=== PATIENT | male | born 1975 | race Caucasian/White ===

== ENCOUNTER 2016-07-01 14:39 | Inpatient (IN) | payer MEDICARE, MEDICAID ==
--- NOTE | 2016-07-01 15:09 | ER Document Report ---
ED Medical Screen (RME) - General Chief Complaint: Numbness Stated Complaint: LEFT SIDE BODY NUMBNESS Notes: Patient presents with complaints of left upper and lower extremity numbness for the past 4 days after having an episode of hypoglycemia. No history of similar symptoms in the past. He denies objective weakness. No dysphagia, aphasia, or visual deficits. He has not seen his primary doctor regarding today's symptoms but was referred to the emergency department when he explained his symptoms over the phone. Nothing seems to improve or worsen his symptoms. I have greeted and performed a rapid initial assessment of this patient. A comprehensive ED assessment and evaluation of the patient, analysis of test results and completion of medical decision making process will be conducted by an additional ED providers. TRAVEL OUTSIDE OF THE [place] IN LAST 30 DAYS: No - Related Data Allergies/Adverse Reactions: Influenza A (H1N1)Vaccine 2008 * [Influenza A (H1N1)Vaccine 2008] Allergy ( Verified 07/25/14 12:39) Past Medical History - Past Medical History Cardiac Medical History: Reports: Hx Hypercholesterolemia, Hx Hypertension Endocrine Medical History: Reports: Hx Diabetes Mellitus Type 1, Hx Diabetes Mellitus Type 2 Renal/ Medical History: Denies: Hx Peritoneal Dialysis Psychiatric Medical History: Reports: Hx Depression Past Surgical History: Reports: Hx Appendectomy, Hx Orthopedic Surgery - left arm, Hx Tonsillectomy Physical Exam - Vital signs Vitals: Pulse BP Pulse Ox 66 137/51 H 98 07/01/16 14:45 07/01/16 14:45 07/01/16 14:45 Course - Re-evaluation Re-evalutation: 07/01/16 15:08 Patient's symptoms appear most consistent with a left-sided MCA distribution stroke. He does have objective weakness on exam with 4 out of 5 strength in the biceps and triceps of the left approximately 4 versus 45 out of 5 strength on the right. Likewise his distal and proximal strength on the left lower extremity is 4 out of 5 versus 5 out of 5 on the right. Have ordered an MRI of the head, carotid Dopplers, and laboratories and will send back to the main emergency department as I believe he has likely had a stroke and will require further evaluation. His symptoms did start 4 days ago and he is not a TPA candidate. - Vital Signs Vital signs: Temp Pulse Resp BP Pulse Ox 97.5 F 103 H 16 122/79 99 07/01/16 14:48 07/01/16 14:48 07/01/16 14:48 07/01/16 14:48 07/01/16 14:48
[2016-07-01] MEDS ORDERED: DEXTROSE 50%-WATER 25 GM/50 ML DISP.SYRIN IV ONE ×3 (15:23→19:20)
[2016-07-01 15:58] LABS: ABSOLUTE BASOPHILS # (AUTO) 0.1 10^3/uL (0.0-0.2); ABSOLUTE EOSINOPHILS # (AUTO) 0.1 10^3/uL (0.0-0.6); ABSOLUTE LYMPHOCYTES (AUTO) 3.4 10^3/uL (0.5-4.7); ABSOLUTE MONOCYTES (AUTO) 0.8 10^3/uL (0.1-1.4); ABSOLUTE NEUT (AUTO) 5.7 10^3/uL (1.7-8.2); EOSINOPHILS % (AUTO) 1.2 % (0-6); HEMATOCRIT 43.7 % (37.9-51.0); HEMOGLOBIN 14.4 g/dL (13.5-17.0); HGB HCT DIFFERENCE -0.5; LYMPHOCYTES % (AUTO) 33.5 % (13-45); MEAN CORPUSCULAR HEMOGLOBIN 30.7 pg (27.0-33.4); MEAN CORPUSCULAR HGB CONC 32.9 g/dL (32.0-36.0); MEAN CORPUSCULAR VOLUME 93 fl (80-97); MONOCYTES % (AUTO) 7.8 % (3-13); RED BLOOD COUNT 4.68 10^6/uL (4.35-5.55); RED CELL DISTRIBUTION WIDTH 14.3 % (11.5-14.0); SEGMENTED NEUTROPHILS % (AUTO) 56.5 % (42-78); WHITE BLOOD COUNT 10.1 10^3/uL (4.0-10.5)
[2016-07-01 16:23] LABS: ANION GAP 12 (5-19); BLOOD UREA NITROGEN 16 mg/dL (7-20); CALCIUM 9.7 mg/dL (8.4-10.2); CARBON DIOXIDE 28 mmol/L (22-30); CHLORIDE 101 mmol/L (98-107); CHOLESTEROL 248.47 mg/dL (0-200); CREATININE RESULT 0.75 mg/dL (0.52-1.25); Direct HDL 53 mg/dL (>40); GLUCOSE 179 mg/dL (75-110); SODIUM 140.8 mmol/L (137-145); TRIGLYCERIDES 57 mg/dL (<150)
[2016-07-01 16:33] LABS: DIRECT LDL 149 mg/dL (<100)
--- NOTE | 2016-07-01 18:54 | EKG REPORT ---
SEVERITY:- NORMAL ECG - SINUS RHYTHM : Confirmed by: Lance Alvarez MD 01-Jul-2016 18:53:40
--- NOTE | 2016-07-01 22:43 | ER Document Report ---
ED Neuro Symptoms/Deficit - General Chief Complaint: Numbness Stated Complaint: LEFT SIDE BODY NUMBNESS Mode of Arrival: Ambulatory Information source: Patient TRAVEL OUTSIDE OF THE [place] IN LAST 30 DAYS: No - HPI Patient complains to provider of: Paresthesia - LEFT UPPER & LOWER EXTREMITIES Onset: Other - 4 DAYS AGO Awoke with symptoms: No Symptoms are: Constant Duration: Continues in ED Quality of pain: No pain Context: denies: Insect bite, Tick bite, Falling, Head injury Loss of consciousness: No loss of consciousness Was STROKE ALERT Called: No Baseline Cognitive: Alert, oriented X 3 Baseline Gait: Walks w/o assistance Pre-existing weakness: No: Lower extremity, Upper extremity Alert To: Name/Voice Patient Orientation: Person, Place, Time Character of altered mental status: Unchanged from baseline New weakness: LUE, LLE Altered sensation: LUE, LLE Decreased ability to stand/walk: Weak - MINIMAL Vision problem/glaucoma: No Associated symptoms: None Similar symptoms previously: No Recently seen / treated by doctor: No - Related Data Allergies/Adverse Reactions: Influenza A (H1N1)Vaccine 2008 * [Influenza A (H1N1)Vaccine 2008] Allergy ( Verified 07/01/16 15:10) Past Medical History - General Information source: Patient - Social History Smoking Status: Never Smoker Frequency of alcohol use: None Drug Abuse: None Lives with: Spouse/Significant other Family History: Reviewed & Not Pertinent Patient has suicidal ideation: No Patient has homicidal ideation: No - Past Medical History Cardiac Medical History: Reports: Hx Hypercholesterolemia, Hx Hypertension Neurological Medical History: Denies: Hx Cerebrovascular Accident Endocrine Medical History: Reports: Hx Diabetes Mellitus Type 1, Hx Diabetes Mellitus Type 2 Renal/ Medical History: Denies: Hx Peritoneal Dialysis Psychiatric Medical History: Reports: Hx Depression Past Surgical History: Reports: Hx Appendectomy, Hx Orthopedic Surgery - left arm, Hx Tonsillectomy - Immunizations Hx Diphtheria, Pertussis, Tetanus Vaccination: Yes Review of Systems - Review of Systems Constitutional: No symptoms reported EENT: No symptoms reported Cardiovascular: No symptoms reported Respiratory: No symptoms reported Gastrointestinal: No symptoms reported Genitourinary: No symptoms reported Musculoskeletal: No symptoms reported Skin: No symptoms reported Neurological/Psychological: See HPI Physical Exam - Vital signs Vitals: Pulse BP Pulse Ox 66 137/51 H 98 07/01/16 14:45 07/01/16 14:45 07/01/16 14:45 Interpretation: Normal - General General appearance: Appears well, Alert In distress: None - HEENT Head: Normocephalic Eyes: Normal Conjunctiva: Normal Ears: Normal Nasal: Normal Mouth/Lips: Normal Mucous membranes: Normal - Respiratory Respiratory status: No respiratory distress Breath sounds: Normal - Cardiovascular Rhythm: Regular Heart sounds: Normal auscultation Murmur: No - Abdominal Inspection: Normal Distension: No distension Bowel sounds: Normal - Back Back: Normal - Extremities General upper extremity: Normal inspection General lower extremity: Normal inspection - Neurological Neuro grossly intact: No - VERY SLIGHT MOTOR WEAKNESS LUE,LLE. Cognition: Normal Orientation: AAOx4 Hagan Coma Scale Eye Opening: Spontaneous Vandana Coma Scale Verbal: Oriented Vandana Coma Scale Motor: Obeys Commands Hagan Coma Scale Total: 15 Speech: Normal Cranial nerves: Normal Cerebellar coordination: Normal Motor strength normal: No: LUE, LLE Additional motor exam normals: Equal translational specialist - R. HAND DOMINANT Sensory: Altered light touch - LUE, LLE - Psychological Associated symptoms: Normal affect, Normal mood - Skin Skin Temperature: Warm Skin Moisture: Dry Skin Color: Normal Skin Turgor: Elastic Course - Vital Signs Vital signs: Temp Pulse Resp BP Pulse Ox 97.5 F 104 H 24 H 135/77 H 97 07/01/16 14:48 07/01/16 18:00 07/01/16 21:01 07/01/16 21:01 07/01/16 21:01 - Laboratory Result Diagrams: 07/01/16 15:40 07/01/16 15:40 Laboratory results interpreted by me: 07/01/16 07/01/16 07/01/16 15:40 15:40 15:40 RDW 14.3 H Glucose 179 H POC Glucose Hemoglobin A1c % 8.7 H Cholesterol 248.47 H LDL Cholesterol Direct 149 H 07/01/16 15:50 RDW Glucose POC Glucose 166 H Hemoglobin A1c % Cholesterol LDL Cholesterol Direct - EKG Interpretation by Sd EKG shows normal: Sinus rhythm, Webster, Intervals, QRS Complexes, ST-T Waves Rate: Normal Rhythm: NSR - Consults DR. SANCHEZ Time consulted: 22:38 Consulted provider: will see as inpatient Discharge - Discharge Clinical Impression: Hypercholesterolemia CVA (cerebral vascular accident) Qualifiers: CVA mechanism: unspecified Qualified Code(s): I63.9 - Cerebral infarction, unspecified Hypertension Qualifiers: Hypertension type: essential hypertension Qualified Code(s): I10 - Essential ( primary) hypertension Condition: Good Disposition: ADMITTED INPATIENT Admitting Provider: [facility] Admitted: [facility] Referrals: BRYSON SANCHEZ MD [Primary Care Provider] - Follow up as needed
[2016-07-02] MEDS ORDERED: DEXTROSE 40% GEL 15 GM TUBE X 2 PO PRN (02:03)
[2016-07-02] MEDS ORDERED: DEXTROSE 40% GEL 15 GM TUBE PO PRN (02:03)
[2016-07-02] MEDS ORDERED: DEXTROSE 50%-WATER SYRINGE 25 GM/50 ML DOSE IV PRN (02:03)
[2016-07-02] MEDS ORDERED: GLUCAGON,HUMAN RECOMB 1 MG INJ IM PRN (02:03)
[2016-07-02] MEDS ORDERED: DEXTROSE 50%-WATER SYRINGE 12.5 GM/25 ML DOSE IV PRN (02:03)
[2016-07-02] MEDS: LANSOPRAZOLE 30 MG TAB.RAP.DR PO SCH (05:29)
[2016-07-02] MEDS: INSULIN LISPRO 100 UNIT/ML 3 ML VIAL SUBCUT PRN ×2 (08:24→12:38)
[2016-07-02] MEDS: ASPIRIN 81 MG TABLET, ENT COATED PO SCH (09:25)
[2016-07-02] MEDS: INSULIN GLARGINE,HUM.REC.ANLOG 300 UNIT/3 ML INSULN.PEN SUBCUT SCH (09:26)
[2016-07-02] MEDS ORDERED: LISINOPRIL 10 MG TABLET PO SCH (10:00)
--- NOTE | 2016-07-02 11:18 | PDOC H&P ---
History of Present Illness Admission Date/PCP: 07/02/16 01:09 BRYSON SANCHEZ Patient complains of: Left sided numbness History of Present Illness: WOODY TORRES JR is a 40 year old male known to my practice who was referred to the ED after calling office with compliant of left sided body numbness and episodes of hypoglycemia about 4 days prior to his calling the office. Patient reported that he had significant hypoglycemia and his family had to [facility] for assistance. He was evaluated on site and advised transfer to hospital but patient declined after his resuscitative treatment. He reported development of numbness thereafter. he denied any associated definite weakness or decline in his functional capacity thereafter. He denied any associated disorientation, headache, dizziness, nausea, or vomiting. Patient reported associated loss of consciousness and severe diaphoresis with his hypoglycemia episode preceding onset of his presenting symptoms. His predisposing co-morbidities do include type 1 diabetes mellitus, HTN and HLD. Past Medical History Cardiac Medical History: Reports: Hyperlipidema, Hypertension Endocrine Medical History: Reports: Diabetes Mellitus Type 1, Diabetes Mellitus Type 2 Psychiatric Medical History: Reports: Depression Past Surgical History Past Surgical History: Reports: Appendectomy, Orthopedic Surgery - left arm, Tonsillectomy Social History Lives with: Spouse/Significant other Smoking Status: Never Smoker Frequency of Alcohol Use: None Hx Recreational Drug Use: No Hx Prescription Drug Abuse: No Family History Family History: Reviewed & Not Pertinent Parental Family History Reviewed: Yes Children Family History Reviewed: Yes Sibling(s) Family History Reviewed.: Yes Medication/Allergy Home Medications: Atorvastatin Calcium [Lipitor 80 mg Tablet] 80 mg PO DAILY 07/02/16 Gabapentin [Neurontin 300 mg Capsule] 300 mg PO DAILY 07/02/16 Insulin Aspart [Novolog Insulin 100 Unit/1 ml 10 ml] 0 unit SUBCUT .SLD SCALE Insulin Glargine,Hum.rec.anlog [Lantus] 50 unit SQ QAM 07/02/16 Lisinopril [Prinivil 10 mg Tablet] 10 mg PO DAILY 07/02/16 Venlafaxine HCl [Effexor] 50 mg PO QHS 07/02/16 Allergies/Adverse Reactions: Influenza A (H1N1)Vaccine 2008 * [Influenza A (H1N1)Vaccine 2008] Allergy ( Verified 07/01/16 15:10) Review of Systems Constitutional: ABSENT: chills, fever(s), headache(s), weight gain, weight loss Eyes: ABSENT: visual disturbances Ears: ABSENT: hearing changes Nose, Mouth, and Throat: ABSENT: as per HPI, headache(s), mouth pain, sore throat, vertigo, other Cardiovascular: ABSENT: chest pain, dyspnea on exertion, edema, orthropnea, palpitations Respiratory: ABSENT: cough, hemoptysis Gastrointestinal: ABSENT: abdominal pain, constipation, diarrhea, hematemesis, hematochezia, nausea, vomiting Genitourinary: ABSENT: dysuria, hematuria Musculoskeletal: ABSENT: joint swelling Integumentary: PRESENT: diaphoresis, other - healing vascular ulcers on right foof and lower aspect of his right leg. ABSENT: as per HPI, erythema, lesions, pruritus, rash, wounds Neurological: PRESENT: numbness, paresthesias. ABSENT: as per HPI, abnormal gait, abnormal movements, abnormal speech, confusion, convulsions, dizziness, focal weakness, frequent falls, lack of coordination, memory loss, restless legs , syncope, tingling, tremor(s), vertigo, weakness, other Psychiatric: ABSENT: anxiety, depression, homidical ideation, suicidal ideation Endocrine: ABSENT: cold intolerance, heat intolerance, polydipsia, polyuria Hematologic/Lymphatic: ABSENT: easy bleeding, easy bruising, lymphadenopathy Physical Exam Vital Signs: Temp Pulse Resp BP Pulse Ox 97.9 F 119 H 18 113/68 100 07/02/16 08:38 07/02/16 08:38 07/02/16 08:38 07/02/16 08:38 07/02/16 08:38 Intake & Output 07/01/16 07/02/16 07/03/16 06:59 06:59 06:59 Intake Total 205 Output Total 925 Balance -720 Weight 68.7 kg General appearance: PRESENT: no acute distress, cooperative, well-developed, well-nourished Head exam: PRESENT: atraumatic, normocephalic Eye exam: PRESENT: conjunctiva pink, EOMI, PERRLA. ABSENT: scleral icterus Ear exam: PRESENT: normal external ear exam Mouth exam: PRESENT: moist, tongue midline Teeth exam: ABSENT: dental caries, dental tenderness, edentulous, poor dentation , other Throat exam: ABSENT: post pharyngeal erythema, tonsillar erythema, tonsillar exudate, tonsillogmegaly, other Neck exam: PRESENT: full ROM. ABSENT: carotid bruit, JVD, lymphadenopathy, thyromegaly Respiratory exam: PRESENT: clear to auscultation dianne Cardiovascular exam: PRESENT: RRR. ABSENT: diastolic murmur, rubs, systolic murmur Pulses: PRESENT: normal dorsalis pedis pul, +2 pedal pulses bilateral Vascular exam: PRESENT: normal capillary refill GI/Abdominal exam: PRESENT: normal bowel sounds, soft. ABSENT: distended, guarding, mass, organolmegaly, rebound, tenderness Rectal exam: PRESENT: deferred Extremities exam: PRESENT: full ROM Musculoskeletal exam: PRESENT: ambulatory, full ROM Neurological exam: PRESENT: alert, awake, oriented to person, oriented to place , oriented to time, oriented to situation, CN II-XII grossly intact. ABSENT: motor sensory deficit Psychiatric exam: PRESENT: appropriate affect, normal mood. ABSENT: homicidal ideation, suicidal ideation Skin exam: PRESENT: dry, intact, warm, other - healing vascuar ulcers on right foot and lower region of right leg. ABSENT: cyanosis, rash Results Laboratory Results: Reviewed om [facility] and form significant part of my decision making on this case. Impressions: Head MRI 07/01/16 15:05 IMPRESSION: Positive for acute or sub-acute 6 mm lacunar infarction in the right lateral thalamus. Carotid Doppler Study 07/01/16 15:06 IMPRESSION: NO HEMODYNAMICALLY SIGNIFICANT STENOSIS. Assessment & Plan - Diagnosis (1) Diabetes mellitus type 1 with complications Is this a current diagnosis for this admission?: YesPlan: See admitting physician orders. (2) Hypercholesterolemia Is this a current diagnosis for this admission?: YesPlan: See admitting physician orders. (3) Hypertension Qualifiers: Hypertension type: essential hypertension Qualified Code(s): I10 - Essential (primary) hypertension Is this a current diagnosis for this admission?: YesPlan: See admitting physician orders. (4) Lacunar stroke of right subthalamic region Is this a current diagnosis for this admission?: YesPlan: See admitting physician orders. - Time Time Spent: 50 to 70 Minutes Medications reviewed and adjusted accordingly: Yes Anticipated discharge: Home with Homehealth Within: Other - Inpatient Certification Based on my medical assessment, after consideration of the patient's comorbidities, presenting symptoms, or acuity I expect that the services needed warrant INPATIENT care.: Yes I certify that my determination is in accordance with my understanding of Medicare's requirements for reasonable and necessary INPATIENT services [42 CFR 412.3e].: Yes Medical Necessity: Need Close Monitoring Due to Risk of Patient Decompensation, Need For IV Fluids, Need For Continuous Telemetry Monitoring, Risk of Complication if Not Cared For in Hospital Post Hospital Care: D/C Special Police Officer Documentation - Plan Summary Plan Summary: See admitting physician orders.
[2016-07-02] MEDS ORDERED: LISINOPRIL 10 MG TABLET PO ONE ×2 (12:00)
[2016-07-02] MEDS ORDERED: ACETAMINOPHEN 325 MG TABLET PO PRN (15:34)
[2016-07-02] MEDS ORDERED: VENLAFAXINE HCL 50 MG PO SCH (22:00)
[2016-07-02] MEDS ORDERED: AMITRIPTYLINE HCL 50 MG TABLET PO SCH (22:00)
[2016-07-02] MEDS: ATORVASTATIN CALCIUM 80 MG TABLET PO SCH (22:44)
[2016-07-02] MEDS: VENLAFAXINE HCL 25 MG TABLET PO SCH (22:45)
[2016-07-03 05:03] LABS: ABSOLUTE BASOPHILS # (AUTO) 0.1 10^3/uL (0.0-0.2); ABSOLUTE EOSINOPHILS # (AUTO) 0.2 10^3/uL (0.0-0.6); ABSOLUTE LYMPHOCYTES (AUTO) 3.7 10^3/uL (0.5-4.7); ABSOLUTE MONOCYTES (AUTO) 0.8 10^3/uL (0.1-1.4); ABSOLUTE NEUT (AUTO) 3.5 10^3/uL (1.7-8.2); BASOPHILS % (AUTO) 1.3 % (0-2); EOSINOPHILS % (AUTO) 1.9 % (0-6); HEMATOCRIT 39.9 % (37.9-51.0); HEMOGLOBIN 13.4 g/dL (13.5-17.0); HGB HCT DIFFERENCE 0.3; LYMPHOCYTES % (AUTO) 44.8 % (13-45); MEAN CORPUSCULAR HEMOGLOBIN 31.4 pg (27.0-33.4); MEAN CORPUSCULAR HGB CONC 33.7 g/dL (32.0-36.0); MEAN CORPUSCULAR VOLUME 93 fl (80-97); MONOCYTES % (AUTO) 10.1 % (3-13); RED BLOOD COUNT 4.28 10^6/uL (4.35-5.55); RED CELL DISTRIBUTION WIDTH 14.6 % (11.5-14.0); SEGMENTED NEUTROPHILS % (AUTO) 41.9 % (42-78); WHITE BLOOD COUNT 8.4 10^3/uL (4.0-10.5)
[2016-07-03 05:18] LABS: ALANINE AMINOTRANSFERASE 37 U/L (21-72); ALBUMIN 3.5 g/dL (3.5-5.0); ALKALINE PHOSPHATASE 82 U/L (38-126); ANION GAP 12 (5-19); ASPARTATE AMINO TRANSFERASE 22 U/L (17-59); BILIRUBIN,DIRECT 0.4 mg/dL (0.0-0.4); BILIRUBIN,TOTAL 0.7 mg/dL (0.2-1.3); BLOOD UREA NITROGEN 26 mg/dL (7-20); CALCIUM 9.9 mg/dL (8.4-10.2); CARBON DIOXIDE 25 mmol/L (22-30); CHLORIDE 103 mmol/L (98-107); CHOLESTEROL 238.83 mg/dL (0-200); CREATININE RESULT 1.12 mg/dL (0.52-1.25); Direct HDL 46 mg/dL (>40); GLUCOSE 74 mg/dL (75-110); POTASSIUM 4.5 mmol/L (3.6-5.0); SODIUM 139.7 mmol/L (137-145); TOTAL PROTEIN 6.4 g/dL (6.3-8.2); TRIGLYCERIDES 79 mg/dL (<150)
[2016-07-03] MEDS: LANSOPRAZOLE 30 MG TAB.RAP.DR PO SCH (05:23)
[2016-07-03] MEDS: NORMAL SALINE 1000 ML 1,000 ML IV PRN (05:25)
[2016-07-03 05:29] LABS: DIRECT LDL 161 mg/dL (<100)
--- NOTE | 2016-07-03 08:58 | EKG REPORT ---
SEVERITY:- BORDERLINE ECG - SINUS RHYTHM LATE PRECORDIAL MEDICAL OFFICE REP PLACEMENT. : Confirmed by: Lance Alvarez MD 03-Jul-2016 08:57:39
[2016-07-03] MEDS ORDERED: GABAPENTIN 300 MG CAPSULE PO SCH (10:00)
[2016-07-03] MEDS: ASPIRIN 81 MG TABLET, ENT COATED PO SCH (10:56)
[2016-07-03] MEDS: INSULIN GLARGINE,HUM.REC.ANLOG 300 UNIT/3 ML INSULN.PEN SUBCUT SCH (10:57)
[2016-07-03] MEDS: LISINOPRIL 10 MG TABLET PO SCH (11:01)
[2016-07-03] MEDS: INSULIN LISPRO 100 UNIT/ML 3 ML VIAL SUBCUT PRN (13:15)
--- NOTE | 2016-07-03 13:20 | PDOC PROGRESS REPORT ---
Subjective Progress Note for:: 07/03/16 Subjective:: Patient reported persistence of left sided extremities numbness feeling. He did reviewed video recorded video instructions on stroke. He denied any chest pain, SOB, palpitation, nausea or vomiting. Tolerating oral feeding without any difficulty with swallowing. Physical Exam Vital Signs: Temp Pulse Resp BP Pulse Ox 98.5 F 83 18 111/68 97 07/03/16 11:25 07/03/16 11:25 07/03/16 11:25 07/03/16 11:25 07/03/16 11:25 Intake & Output 07/02/16 07/03/16 07/04/16 06:59 06:59 06:59 Intake Total 205 903 695 Output Total 925 600 0 Balance -720 303 695 Weight 68.7 kg 68.8 kg Physical Exam: General appearance: PRESENT: no acute distress, cooperative, well-developed, well-nourished Head exam: PRESENT: atraumatic, normocephalic Eye exam: PRESENT: conjunctiva pink, EOMI, PERRLA. ABSENT: scleral icterus Mouth exam: PRESENT: moist, tongue midline Neck exam: PRESENT: full ROM. ABSENT: carotid bruit, JVD, lymphadenopathy, thyromegaly Respiratory exam: PRESENT: clear to auscultation dianne Cardiovascular exam: PRESENT: RRR. ABSENT: diastolic murmur, rubs, systolic murmur GI/Abdominal exam: PRESENT: normal bowel sounds, soft. ABSENT: distended, guarding, mass, organolmegaly, rebound, tenderness Extremities exam: PRESENT: full ROM Musculoskeletal exam: PRESENT: ambulatory, full ROM Neurological exam: PRESENT: alert, awake, oriented to person, oriented to place , oriented to time, oriented to situation, CN II-XII grossly intact. ABSENT: motor sensory deficit Psychiatric exam: PRESENT: appropriate affect, normal mood. ABSENT: homicidal ideation, suicidal ideation Skin exam: PRESENT: dry, intact, warm, other - healing vascuar ulcers on right foot and lower region of right leg. ABSENT: cyanosis, rash Results Laboratory Results: 07/03/16 03:54 07/03/16 03:54 07/03/16 07/03/16 03:54 03:54 WBC 8.4 RBC 4.28 L Hgb 13.4 L Hct 39.9 MCV 93 MCH 31.4 MCHC 33.7 RDW 14.6 H Plt Count 301 Seg Neutrophils % 41.9 L Lymphocytes % 44.8 Monocytes % 10.1 Eosinophils % 1.9 Basophils % 1.3 Absolute Neutrophils 3.5 Absolute Lymphocytes 3.7 Absolute Monocytes 0.8 Absolute Eosinophils 0.2 Absolute Basophils 0.1 Sodium 139.7 Potassium 4.5 Chloride 103 Carbon Dioxide 25 Anion Gap 12 BUN 26 H Creatinine 1.12 Est GFR ( Amer) > 60 Est GFR (Non-Af Amer) > 60 Glucose 74 L Calcium 9.9 Total Bilirubin 0.7 AST 22 ALT 37 Alkaline Phosphatase 82 Total Protein 6.4 Albumin 3.5 Triglycerides 79 Cholesterol 238.83 H LDL Cholesterol Direct 161 H VLDL Cholesterol 16.0 HDL Cholesterol 46 Impressions: Head MRI 07/01/16 15:05 IMPRESSION: Positive for acute or sub-acute 6 mm lacunar infarction in the right lateral thalamus. Carotid Doppler Study 07/01/16 15:06 IMPRESSION: NO HEMODYNAMICALLY SIGNIFICANT STENOSIS. Assessment & Plan - Diagnosis (1) Diabetes mellitus type 1 with complications Is this a current diagnosis for this admission?: YesPlan: See attending physician orders. Maintain on current medication management. (2) Hypercholesterolemia Is this a current diagnosis for this admission?: YesPlan: See attending physician orders. Maintain on current medication management. (3) Hypertension Qualifiers: Hypertension type: essential hypertension Qualified Code(s): I10 - Essential (primary) hypertension Is this a current diagnosis for this admission?: YesPlan: See attending physician orders. Maintain on current medication management. (4) Lacunar stroke of right subthalamic region Is this a current diagnosis for this admission?: YesPlan: See attending physician orders. Maintain on current medication management. Increase Gabapentin to 300 mg p.o bid - Time Time Spent with patient: 25-34 minutes Medications reviewed and adjusted accordingly: Yes Within: Other - Inpatient Certification Based on my medical assessment, after consideration of the patient's comorbidities, presenting symptoms, or acuity I expect that the services needed warrant INPATIENT care.: Yes I certify that my determination is in accordance with my understanding of Medicare's requirements for reasonable and necessary INPATIENT services [42 CFR 412.3e].: Yes Medical Necessity: Need Close Monitoring Due to Risk of Patient Decompensation, Need For IV Fluids, Need For Continuous Telemetry Monitoring, Risk of Complication if Not Cared For in Hospital Post Hospital Care: D/C Speech Language Therapist Documentation - Plan Summary Plan Summary: See attending physician orders.
[2016-07-03] MEDS: GABAPENTIN 300 MG CAPSULE PO SCH (17:41)
[2016-07-03] MEDS: VENLAFAXINE HCL 25 MG TABLET PO SCH (21:47)
[2016-07-03] MEDS: ATORVASTATIN CALCIUM 80 MG TABLET PO SCH (21:49)
[2016-07-03] MEDS ORDERED: AMITRIPTYLINE HCL 25 MG TABLET PO SCH (22:00)
[2016-07-04] MEDS: LANSOPRAZOLE 30 MG TAB.RAP.DR PO SCH (05:44)
[2016-07-04] MEDS: INSULIN GLARGINE,HUM.REC.ANLOG 300 UNIT/3 ML INSULN.PEN SUBCUT SCH (10:00)
[2016-07-04] MEDS: GABAPENTIN 300 MG CAPSULE PO SCH ×3 (10:00→17:01)
--- NOTE | 2016-07-04 12:42 | PDOC PROGRESS REPORT ---
Subjective Progress Note for:: 07/04/16 Subjective:: Patient reported some improvement in feeling in his left extremities. There is reported of persistent hypoglycemia overnight. He admitted to eating his diabetic snack at bedtime. No nausea or vomiting. Tolerating oral feeding without any difficulty with swallowing. He denied any chest pain, SOB, or palpitation. Physical Exam Vital Signs: Temp Pulse Resp BP Pulse Ox 98.0 F 85 19 123/66 98 07/04/16 11:34 07/04/16 11:34 07/04/16 11:34 07/04/16 11:34 07/04/16 11:34 Intake & Output 07/03/16 07/04/16 07/05/16 06:59 06:59 06:59 Intake Total 903 3605 354 Output Total 600 3075 420 Balance 303 530 -66 Weight 68.8 kg 71.6 kg Physical Exam: General appearance: PRESENT: no acute distress, cooperative, well-developed, well-nourished Head exam: PRESENT: atraumatic, normocephalic Eye exam: PRESENT: conjunctiva pink, EOMI, PERRLA. ABSENT: scleral icterus Mouth exam: PRESENT: moist, tongue midline Neck exam: PRESENT: full ROM. ABSENT: carotid bruit, JVD, lymphadenopathy, thyromegaly Respiratory exam: PRESENT: clear to auscultation dianne Cardiovascular exam: PRESENT: RRR. ABSENT: diastolic murmur, rubs, systolic murmur GI/Abdominal exam: PRESENT: normal bowel sounds, soft. ABSENT: distended, guarding, mass, organomegaly, rebound, tenderness Extremities exam: PRESENT: full ROM Musculoskeletal exam: PRESENT: ambulatory, full ROM Neurological exam: PRESENT: alert, awake, oriented to person, oriented to place , oriented to time, oriented to situation, CN II-XII grossly intact. ABSENT: motor sensory deficit Psychiatric exam: PRESENT: appropriate affect, normal mood. ABSENT: homicidal ideation, suicidal ideation Skin exam: PRESENT: dry, intact, warm, other - healing vascular ulcers on right foot and lower region of right leg. ABSENT: cyanosis, rash Results Laboratory Results: 07/03/16 03:54 07/03/16 03:54 Impressions: Head MRI 07/01/16 15:05 IMPRESSION: Positive for acute or sub-acute 6 mm lacunar infarction in the right lateral thalamus. Carotid Doppler Study 07/01/16 15:06 IMPRESSION: NO HEMODYNAMICALLY SIGNIFICANT STENOSIS. Assessment & Plan - Diagnosis (1) Diabetes mellitus type 1 with complications Is this a current diagnosis for this admission?: YesPlan: See attending physician orders. I will decrease Lantus insulin to 40 units SC daily. Maintain on all other current medication management. (2) Hypercholesterolemia Is this a current diagnosis for this admission?: YesPlan: See attending physician orders. Maintain on current medication management. (3) Hypertension Qualifiers: Hypertension type: essential hypertension Qualified Code(s): I10 - Essential (primary) hypertension Is this a current diagnosis for this admission?: YesPlan: See attending physician orders. Maintain on current medication management. (4) Lacunar stroke of right subthalamic region Is this a current diagnosis for this admission?: YesPlan: See attending physician orders. Increase Gabapentin to 300 mg p.o tid. Maintain on current medication management. - Time Time Spent with patient: 25-34 minutes Medications reviewed and adjusted accordingly: Yes Anticipated discharge: Home with Homehealth Within: Other - Inpatient Certification Medical Necessity: Need Close Monitoring Due to Risk of Patient Decompensation, Need For Continuous Telemetry Monitoring, Risk of Complication if Not Cared For in Hospital Post Hospital Care: D/C Incident Response Specialist Documentation - Plan Summary Plan Summary: See attending physician orders.
[2016-07-04] MEDS ORDERED: INSULIN GLARGINE,HUM.REC.ANLOG 300 UNIT/3 ML INSULN.PEN SUBCUT ONE (12:45)
[2016-07-04] MEDS: LISINOPRIL 10 MG TABLET PO SCH (13:30)
[2016-07-04] MEDS: ASPIRIN 81 MG TABLET, ENT COATED PO SCH (13:31)
--- NOTE | 2016-07-04 19:29 | XCELERA REPORT ---
[address] [address] Transthoracic Echocardiogram Report Name: WOODY TORRES JR Age: 40 yrs Gender: Male : 1975 Patient Status: Inpatient Patient Location: [id number]\S\304\S\B Study Date: 07/04/2016 10:55 AM Height: 71 in Weight: 151 lb BSA: 1.9 m2 Procedure: A complete two-dimensional transthoracic echocardiogram was performed (2D, M-mode, spectral and color flow Doppler). The study was technically adequate with some images being suboptimal in quality. Reason For Study: Acute/Subacute Right subthalamic lacuna stroke Ordering Physician: BRYSON SANCHEZ Performed By: Monique Cleveland Interpretation Summary The left ventricular ejection fraction is normal. There is mild concentric left ventricular hypertrophy. Doppler measurements suggest pseudonormalized left ventricular relaxation, which is associated with grade II/IV or mild to moderate diastolic dysfunction The left ventricle is grossly normal size. Wall motion cannot be accurately commented on, but no definite regional wall motion abnormalities noted. The right ventricular systolic function is normal. The left atrial size is normal. The right atrium is normal in size There is a trace amount of mitral regurgitation There is no mitral valve stenosis. There is a trace to mild amount of aortic regurgitation There is no aortic valve stenosis There is a trace or physiologic amount of tricuspid regurgitation Tricuspid regurgitation jet envelope not well defined to measure RV systolic pressure accurately. There is no pericardial effusion. No definite cardiac source of CVA/TIA noted on this particular trans- thoracic study. Consider DONOVAN if clinically indicated. May consider mobile cardiac telemetry monitoring (MCT) for ruling out transient AFIB. MMode/2D Measurements \T\ Calculations RVDd: 2.9 cm LVIDd: 4.5 cm FS: 45.7 % Ao root diam: 2.6 cm IVSd: 0.95 cm LVIDs: 2.4 cm EDV(Teich): 92.3 ml LVPWd: 0.99 cm ESV(Teich): 21.0 ml Ao root area: 5.3 cm2 EF(Teich): 77.2 % LA dimension: 2.7 cm Doppler Measurements \T\ Calculations MV E max sintia: MV P1/2t max sintia: Ao V2 max: AI max sintia: 87.5 cm/sec 86.8 cm/sec 158.8 cm/sec 293.8 cm/sec MV A max sintia: MV P1/2t: 54.1 msec Ao max PG: AI max P.3 cm/sec 10.1 mmHg 34.5 mmHg MV E/A: 1.2 MVA(P1/2t): 4.1 cm2 AI dec slope: MV dec slope: 469.7 cm/sec2 226.3 cm/sec2 MV dec time: AI P1/2t: 0.19 sec 380.2 msec LV V1 max PG: PA V2 max: 2.9 mmHg 79.1 cm/sec LV V1 max: PA max P.5 mmHg 84.8 cm/sec Left Ventricle The left ventricle is grossly normal size. There is mild concentric left ventricular hypertrophy. The left ventricular ejection fraction is normal. Doppler measurements suggest pseudonormalized left ventricular relaxation, which is associated with grade II/IV or mild to moderate diastolic dysfunction. Wall motion cannot be accurately commented on, but no definite regional wall motion abnormalities noted. Right Ventricle The right ventricle is normal in size, thickness and function. The right ventricular systolic function is normal. Atria The right atrium is normal in size. The left atrial size is normal. Interarterial septum not well visualized and not well dopplered. Cannot comment on ASD/PFO presence. Mitral Valve The mitral valve is grossly normal. There is no mitral valve stenosis. There is a trace amount of mitral regurgitation. Aortic Valve The aortic valve is sclerotic, but shows no functional abnormality. There is no aortic valve stenosis. There is a trace to mild amount of aortic regurgitation. Tricuspid Valve The tricuspid valve is not well visualized, but is grossly normal. There is no tricuspid stenosis. There is a trace or physiologic amount of tricuspid regurgitation. Tricuspid regurgitation jet envelope not well defined to measure RV systolic pressure accurately. Pulmonic Valve The pulmonic valve is not well seen, but is grossly normal. Great Vessels The aortic root is not well visualized. The inferior vena cava appeared normal and decreased > 50% with respiration (RAP 5-10 mmHg). Effusions There is no pericardial effusion. Incidental Findings No definite cardiac source of CVA/TIA noted on this particular trans- thoracic study. Consider DONOVAN if clinically indicated. May consider mobile cardiac telemetry monitoring (MCT) for ruling out transient AFIB. : BRYSON SANCHEZ > Juany Lewis
[2016-07-04] MEDS: ATORVASTATIN CALCIUM 80 MG TABLET PO SCH (21:48)
[2016-07-04] MEDS: VENLAFAXINE HCL 25 MG TABLET PO SCH (21:50)
[2016-07-04] MEDS: INSULIN LISPRO 100 UNIT/ML 3 ML VIAL SUBCUT PRN (21:58)
[2016-07-04] MEDS ORDERED: AMITRIPTYLINE HCL 50 MG TABLET PO SCH (22:00)
[2016-07-05] MEDS: LANSOPRAZOLE 30 MG TAB.RAP.DR PO SCH (06:18)
[2016-07-05] MEDS: NORMAL SALINE 1000 ML 1,000 ML IV PRN (06:18)
[2016-07-05] MEDS: LISINOPRIL 10 MG TABLET PO SCH (09:26)
[2016-07-05] MEDS: ASPIRIN 81 MG TABLET, ENT COATED PO SCH (09:26)
[2016-07-05] MEDS: GABAPENTIN 300 MG CAPSULE PO SCH ×3 (09:26→17:04)
[2016-07-05] MEDS ORDERED: INSULIN GLARGINE,HUM.REC.ANLOG 300 UNIT/3 ML INSULN.PEN SUBCUT SCH (10:00)
[2016-07-05] MEDS: INSULIN LISPRO 100 UNIT/ML 3 ML VIAL SUBCUT PRN ×2 (11:55→17:02)
[2016-07-05 16:38] VITALS: BP 122/59
--- NOTE | 2016-07-05 19:15 | PDOC DISCHARGE SUMMARY ---
General - Admit/Disc Date/PCP Admission Date/Primary Care Provider: 07/02/16 01:09 BRYSON LAURA Discharge Date: 07/05/16 - Discharge Diagnosis (1) Diabetes mellitus type 1 with complications Is this a current diagnosis for this admission?: Yes (2) Hypercholesterolemia Is this a current diagnosis for this admission?: Yes (3) Hypertension Is this a current diagnosis for this admission?: Yes (4) Lacunar stroke of right subthalamic region Is this a current diagnosis for this admission?: Yes - Additional Information Discharge Diet: Cardiac, Diabetic Discharge Activity: Activity As Tolerated Home Medications: Venlafaxine HCl [Effexor] 50 mg PO QHS 07/02/16 Amitriptyline HCl [Elavil 50 mg Tablet] 50 mg PO QHS #30 tablet 07/05/16 Aspirin [Ecotrin 81 mg EC Tablet] 81 mg PO DAILY #30 tabec 07/05/16 Atorvastatin Calcium [Lipitor 80 mg Tablet] 80 mg PO DAILY #30 tablet 07/05/16 Gabapentin [Neurontin 300 mg Capsule] 300 mg PO TID #90 capsule 07/05/16 Insulin Aspart [Novolog Insulin (Aspart) 100 unit/mL] 0 unit SUBCUT .SLD SCALE # 0 07/05/16 Insulin Glargine,Hum.rec.anlog [Lantus] 40 unit SQ QHS #1500 07/05/16 Lisinopril [Prinivil 10 mg Tablet] 20 mg PO DAILY #0 tablet 07/05/16 Sennosides/Docusate Sodium [Senna Plus Tablet] 2 each PO DAILY #60 tablet History of Present Illness Patient complains of: Numbness left extremities History of Present Illness: WOODY TORRES JR is a 40 year old male known to my practice who was referred to the ED after calling office with compliant of left sided body numbness and episodes of hypoglycemia about 4 days prior to his calling the office. Patient reported that he had significant hypoglycemia and his family had to [facility] for assistance. He was evaluated on site and advised transfer to hospital but patient declined after his resuscitative treatment. He reported development of numbness thereafter. he denied any associated definite weakness or decline in his functional capacity thereafter. He denied any associated disorientation, headache, dizziness, nausea, or vomiting. Patient reported associated loss of consciousness and severe diaphoresis with his hypoglycemia episode preceding onset of his presenting symptoms. His predisposing co-morbidities do include type 1 diabetes mellitus, HTN and HLD. Hospital Course Hospital Course: Patient symptoms did improved with supportive management and increase in his Gabapentin. His blood pressure medication as adjusted for better control of his hypertension. His hospital stay was mare with episodes of hypoglycemia, particularly during the night time despite administration of diabetic snack at bedtime. His Lantus insulin was adjusted and eventually changed to qhs with reduction in his sliding scale Lispro insulin coverage. His stroke work up were unrevealing except his admitting brain MRI of acute or subacute lateral right thalamus lacuna infarct. Physical Exam Vital Signs: Temp Pulse Resp BP Pulse Ox 98.0 F 81 12 122/59 L 100 07/05/16 18:58 07/05/16 18:58 07/05/16 18:58 07/05/16 18:58 07/05/16 18:58 Intake & Output 07/04/16 07/05/16 07/06/16 06:59 06:59 06:59 Intake Total 3605 4634 1624 Output Total 3075 1894 1400 Balance 530 2740 224 Weight 71.6 kg 71.1 kg Physical Exam: General appearance: PRESENT: no acute distress, cooperative, well-developed, well-nourished Head exam: PRESENT: atraumatic, normocephalic Eye exam: PRESENT: conjunctiva pink, EOMI, PERRLA. ABSENT: scleral icterus Mouth exam: PRESENT: moist, tongue midline Neck exam: PRESENT: full ROM. ABSENT: carotid bruit, JVD, lymphadenopathy, thyromegaly Respiratory exam: PRESENT: clear to auscultation dianne Cardiovascular exam: PRESENT: RRR. ABSENT: diastolic murmur, rubs, systolic murmur GI/Abdominal exam: PRESENT: normal bowel sounds, soft. ABSENT: distended, guarding, mass, organomegaly, rebound, tenderness Extremities exam: PRESENT: full ROM Musculoskeletal exam: PRESENT: ambulatory, full ROM Neurological exam: PRESENT: alert, awake, oriented to person, oriented to place , oriented to time, oriented to situation, CN II-XII grossly intact. ABSENT: motor sensory deficit Psychiatric exam: PRESENT: appropriate affect, normal mood. ABSENT: homicidal ideation, suicidal ideation Skin exam: PRESENT: dry, intact, warm, other - healing vascular ulcers on right foot and lower region of right leg. ABSENT: cyanosis, rash Results Laboratory Results: 07/03/16 03:54 07/03/16 03:54 Impressions: Head MRI 07/01/16 15:05 IMPRESSION: Positive for acute or sub-acute 6 mm lacunar infarction in the right lateral thalamus. Carotid Doppler Study 07/01/16 15:06 IMPRESSION: NO HEMODYNAMICALLY SIGNIFICANT STENOSIS. Qualifiers PATEINT BEING DISCHARGED WITH ANY OF THE FOLLOWING DIAGNOSIS?: Stroke Stroke Pt being discharged on Anti-thrombolytic therapy?: Yes Stroke Pt being discharged on Anti-coagulation therapy?: No Reason(s) for not prescribing Anti-coagulation therapy:: Not indicated Stroke Pt being discharged on Statins?: Yes Plan Discharge Plan: Discharge home today. Follow up in office as instructed upon discharge. Time Spent: Greater than 30 Minutes
== END 2016-07-05 19:30 | disposition home or self-care (01) | DRG 65 ==
LOC: ER 14:39 → UNDOADMIN 22:51 → EH 22:51 → 3N 07-02 02:00 → EH 07-02 02:00 → 3W 07-04 20:11
PROVIDERS: ADMIT Internal Medicine Geriatric Medicine; ATTEND Internal Medicine Geriatric Medicine
DX: I63.9 Cerebral infarction, unspecified (principal); G81.94 Hemiplegia, unspecified affecting left nondominant side; I10 Essential (primary) hypertension; E78.00 Pure hypercholesterolemia, unspecified; E10.8 Type 1 diabetes mellitus with unspecified complications; F32.9 Major depressive disorder, single episode, unspecified; Z88.7 Allergy status to serum and vaccine; Z79.82 Long term (current) use of aspirin; Z79.4 Long term (current) use of insulin; Z79.899 Other long term (current) drug therapy
CPT/HCPCS: 36415; 70551; 80048; 80053; 80061; 82962; 83036; 85025; 93005; 93010; 93306; 93880; 96374; 99285; J1815; J3490; J7030

== ENCOUNTER 2017-04-12 21:52 | Emergency (ER) | payer BC, MEDICARE, MEDICAID ==
[2017-04-12] MEDS ORDERED: NORMAL SALINE 1000 ML 1,000 ML IV ONE (22:18)
[2017-04-12 22:48] LABS: ABSOLUTE BASOPHILS # (AUTO) 0.1 10^3/uL (0.0-0.2); ABSOLUTE EOSINOPHILS # (AUTO) 0.1 10^3/uL (0.0-0.6); ABSOLUTE LYMPHOCYTES (AUTO) 2.7 10^3/uL (0.5-4.7); ABSOLUTE MONOCYTES (AUTO) 1.2 10^3/uL (0.1-1.4); ABSOLUTE NEUT (AUTO) 9.1 10^3/uL (1.7-8.2); BASOPHILS % (AUTO) 0.8 % (0-2); EOSINOPHILS % (AUTO) 0.8 % (0-6); HEMATOCRIT 36.5 % (37.9-51.0); HEMOGLOBIN 12.3 g/dL (13.5-17.0); LYMPHOCYTES % (AUTO) 20.3 % (13-45); MEAN CORPUSCULAR HEMOGLOBIN 30.6 pg (27.0-33.4); MEAN CORPUSCULAR HGB CONC 33.7 g/dL (32.0-36.0); MEAN CORPUSCULAR VOLUME 91 fl (80-97); MONOCYTES % (AUTO) 9.4 % (3-13); PLATELET COUNT 395 10^3/uL (150-450); RED BLOOD COUNT 4.02 10^6/uL (4.35-5.55); RED CELL DISTRIBUTION WIDTH 13.9 % (11.5-14.0); SEGMENTED NEUTROPHILS % (AUTO) 68.7 % (42-78); TOTAL CELLS COUNTED % (AUTO) 100 %; WHITE BLOOD COUNT 13.2 10^3/uL (4.0-10.5)
--- NOTE | 2017-04-12 22:53 | ER Document Report ---
ED General - General Chief Complaint: Foot Injury Stated Complaint: RIGHT FOOT SWOLLEN Time Seen by Provider: 04/12/17 22:18 Mode of Arrival: Ambulatory Information source: Patient Notes: 41-year-old diabetic male presents with complaints of foot injury after falling off stairs 3 days ago. Patient notes he scraped his right heel. Patient does note that he took Lantus 32 units this morning that he was supposed take another 18 night but he has not eaten all day because he was waiting for his Patient's blood sugar upon arrival was 38 TRAVEL OUTSIDE OF THE [place] IN LAST 30 DAYS: No - HPI Onset: Other - 3 day duration Onset/Duration: Persistent Quality of pain: Achy Severity: Mild Pain Level: 1 Associated symptoms: Other Exacerbated by: Movement Relieved by: Denies Similar symptoms previously: No Recently seen / treated by doctor: No - Related Data Allergies/Adverse Reactions: Influenza A (H1N1)Vaccine 2008 * [Influenza A (H1N1)Vaccine 2008] Allergy ( Verified 07/01/16 15:10) Past Medical History - Social History Smoking Status: Never Smoker Cigarette use (# per day): No Chew tobacco use (# tins/day): No Smoking Education Provided: No Family History: Reviewed & Not Pertinent - Past Medical History Cardiac Medical History: Reports: Hx Hypercholesterolemia, Hx Hypertension Neurological Medical History: Denies: Hx Cerebrovascular Accident Endocrine Medical History: Reports: Hx Diabetes Mellitus Type 1, Hx Diabetes Mellitus Type 2 Renal/ Medical History: Denies: Hx Peritoneal Dialysis Psychiatric Medical History: Reports: Hx Depression Past Surgical History: Reports: Hx Appendectomy, Hx Orthopedic Surgery - left arm, Hx Tonsillectomy - Immunizations Hx Diphtheria, Pertussis, Tetanus Vaccination: Yes Review of Systems - Review of Systems Notes: REVIEW OF SYSTEMS: CONSTITUTIONAL : Denies fever, chills, or sweats. Denies recent illness. EENT: Denies eye, ear, throat, or mouth pain or symptoms. Denies nasal or sinus congestion or discharge. Denies throat, tongue, or mouth swelling or difficulty swallowing. CARDIOVASCULAR: Denies chest pain. Denies palpitations or racing or irregular heart beat. Denies ankle edema. RESPIRATORY: Denies cough, cold, or chest congestion. Denies shortness of breath, difficulty breathing, or wheezing. GASTROINTESTINAL: Denies abdominal pain or distention. Denies nausea, vomiting , or diarrhea. Denies blood in vomitus, stools, or per rectum. Denies black, tarry stools. Denies constipation. GENITOURINARY: Denies difficulty urinating, painful urination, burning, frequency, blood in urine, or discharge. MUSCULOSKELETAL: Admits to right foot pain SKIN: Admits to abrasion of the right heel HEMATOLOGIC : Denies easy bruising or bleeding. LYMPHATIC: Denies swollen, enlarged glands. NEUROLOGICAL: Admits to generalized weakness associated with hypoglycemia PSYCHIATRIC: Denies anxiety or stress. Denies depression, suicidal ideation, or homicidal ideation. ALL OTHER SYSTEMS REVIEWED AND NEGATIVE. Dictation was performed using [employer] voice recognition software PHYSICAL EXAMINATION: GENERAL: Well-appearing, well-nourished and in no acute distress. HEAD: Atraumatic, normocephalic. EYES: Pupils equal round and reactive to light, extraocular movements intact, sclera anicteric, conjunctiva are normal. ENT: Nares patent, oropharynx clear without exudates. Moist mucous membranes. NECK: Normal range of motion, supple without lymphadenopathy LUNGS: Breath sounds clear to auscultation bilaterally and equal. No wheezes rales or rhonchi. HEART: Regular rate and rhythm without murmurs ABDOMEN: Soft, nontender, nondistended abdomen. No guarding, no rebound. No masses appreciated. Musculoskeletal: Normal range of motion, no pitting or edema. No cyanosis. NEUROLOGICAL: Baseline mentation PSYCH: Normal mood, normal affect. SKIN: Skin tear right heel with dressing over it on the right foot skin tear of the left foot fourth digit Physical Exam - Vital signs Vitals: Pulse BP Pulse Ox 87 144/80 H 100 04/12/17 22:10 04/12/17 22:10 04/12/17 22:10 Course - Re-evaluation Re-evalutation: 04/12/17 22:53 Patient actually looks quite well for blood sugar of 38, he is immediately given food, lab work pending x-ray imaging pending 04/13/17 01:06 Patient's blood sugars improved significantly after feeding, x-ray noted no bony abnormality that is acute previous fractures noted and reports the patient , patient will be treated for diabetic wound will be started on antibiotics given wound care clinic. Patient has been encouraged to continue eating at home otherwise is stable well-appearing After performing a Medical Screening Examination, I estimate there is LOW risk for OPEN FRACTURE, COMPARTMENT SYNDROME, TENDON RUPTURE, ACUTE NEUROVASCULAR INJURY, or RETAINED FOREIGN BODY, thus I consider the discharge disposition reasonable. Also, there is no evidence or peritonitis, sepsis, or toxicity. I have reevaluated this patient multiple times and no significant life threatening changes are noted. The patient and I have discussed the diagnosis and risks, and we agree with discharging home with close follow-up with the understanding that symptoms and presentations can change. We also discussed returning to the Emergency Department immediately if new or worsening symptoms occur. We have discussed the symptoms which are most concerning (e.g., changing or worsening pain, fever, numbness, weakness, cool or painful digits) that necessitate immediate return. - Vital Signs Vital signs: Temp Pulse Resp BP Pulse Ox 98.0 F 87 15 148/82 H 98 04/12/17 23:54 04/12/17 22:10 04/13/17 00:01 04/13/17 00:00 04/13/17 00:01 - Laboratory Result Diagrams: 04/12/17 22:35 04/12/17 22:35 Laboratory results interpreted by me: 04/12/17 04/12/17 04/12/17 22:35 22:35 22:46 WBC 13.2 H RBC 4.02 L Hgb 12.3 L Hct 36.5 L Absolute Neutrophils 9.1 H Potassium 3.3 L Glucose 64 L POC Glucose 51 L 04/12/17 23:31 WBC RBC Hgb Hct Absolute Neutrophils Potassium Glucose POC Glucose 151 H - Diagnostic Test Radiology reviewed: Image reviewed, Reports reviewed Critical Care Note - Critical Care Note Total time excluding time spent on procedures (mins): 39 Comments: 39 minutes of critical care time spent in direct contact evaluating and reevaluating the patient, treating symptoms, reviewing labs and studies and speaking with family and consultants excluding any procedures Discharge - Discharge Clinical Impression: Hypoglycemia, wound diabetic Condition: Stable Disposition: HOME, SELF-CARE Instructions: Delayed Wound Closure ([facility]), Wound Infection ([facility]) Prescriptions: Cephalexin Monohydrate [Keflex 500 mg Capsule] 500 mg PO QID #40 capsule Hydrocodone/Acetaminophen [[place] 5-325 mg Tablet] 1 tab PO Q6 #10 tablet Sulfamethoxazole/Trimethoprim [Bactrim Ds Tablet] 1 each PO BID #40 tablet Referrals: BRYSON SANCHEZ MD [Primary Care Provider] - Follow up in 3-5 days Wound Care [Provider Group] - Follow up in 3-5 days
[2017-04-12 23:08] LABS: ALANINE AMINOTRANSFERASE 35 U/L (21-72); ALBUMIN 4.6 g/dL (3.5-5.0); ALKALINE PHOSPHATASE 106 U/L (38-126); ANION GAP 11 (5-19); ASPARTATE AMINO TRANSFERASE 29 U/L (17-59); BILIRUBIN,DIRECT 0.2 mg/dL (0.0-0.4); BILIRUBIN,TOTAL 0.5 mg/dL (0.2-1.3); BLOOD UREA NITROGEN 9 mg/dL (7-20); CALCIUM 9.9 mg/dL (8.4-10.2); CARBON DIOXIDE 28 mmol/L (22-30); CHLORIDE 101 mmol/L (98-107); GLUCOSE 64 mg/dL (75-110); POTASSIUM 3.3 mmol/L (3.6-5.0); SODIUM 140.3 mmol/L (137-145); TOTAL PROTEIN 7.7 g/dL (6.3-8.2)
--- NOTE | 2017-04-12 23:33 | RADIOLOGY REPORT (SQ) ---
EXAM DESCRIPTION: FOOT RIGHT COMPLETE CLINICAL HISTORY: 41 years, Male, foot injury COMPARISON: None. NUMBER OF VIEWS: 3 LIMITATIONS: None. FINDINGS: Small deformity-osteophyte at the base of the right third proximal phalanx likely indicates prior injury. Accessory navicular ossicle. Hindfoot in an area of indicated injury appears intact. IMPRESSION: No acute findings.
[2017-04-12] MEDS ORDERED: HYDROCODONE/ACETAMINOPHEN 5-325 MG TABLET PO ONE (23:54)
[2017-04-13 00:08] VITALS: BP 148/82
== END 2017-04-12 23:54 | disposition home or self-care (01) ==
LOC: ER 21:52
DX: E11.649 Type 2 diabetes mellitus with hypoglycemia without coma (principal); S90.811A Abrasion, right foot, initial encounter; R53.1 Weakness; W10.9XXA Fall (on) (from) unspecified stairs and steps, initial encounter; Z79.4 Long term (current) use of insulin; E78.00 Pure hypercholesterolemia, unspecified; I10 Essential (primary) hypertension; Z88.7 Allergy status to serum and vaccine
CPT/HCPCS: 99283; 36415; 82962; 85025; 80053; 73630; J7030

== ENCOUNTER → 2017-04-28 | Outpatient (CLI) | payer BC, MEDICARE, MEDICAID ==
[2017-04-28 16:10] LABS: ABSOLUTE BASOPHILS # (AUTO) 0.1 10^3/uL (0.0-0.2); ABSOLUTE LYMPHOCYTES (AUTO) 2.2 10^3/uL (0.5-4.7); ABSOLUTE MONOCYTES (AUTO) 0.5 10^3/uL (0.1-1.4); ABSOLUTE NEUT (AUTO) 6.6 10^3/uL (1.7-8.2); BASOPHILS % (AUTO) 0.6 % (0-2); EOSINOPHILS % (AUTO) 0.4 % (0-6); HEMATOCRIT 41.7 % (37.9-51.0); HEMOGLOBIN 13.9 g/dL (13.5-17.0); LYMPHOCYTES % (AUTO) 23.1 % (13-45); MEAN CORPUSCULAR HEMOGLOBIN 30.8 pg (27.0-33.4); MEAN CORPUSCULAR HGB CONC 33.4 g/dL (32.0-36.0); MEAN CORPUSCULAR VOLUME 92 fl (80-97); MONOCYTES % (AUTO) 5.7 % (3-13); PLATELET COUNT 396 10^3/uL (150-450); RED BLOOD COUNT 4.53 10^6/uL (4.35-5.55); RED CELL DISTRIBUTION WIDTH 14.9 % (11.5-14.0); SEGMENTED NEUTROPHILS % (AUTO) 70.2 % (42-78); TOTAL CELLS COUNTED % (AUTO) 100 %; WHITE BLOOD COUNT 9.5 10^3/uL (4.0-10.5)
[2017-04-28 16:35] LABS: ALANINE AMINOTRANSFERASE 52 U/L (21-72); ALBUMIN 4.7 g/dL (3.5-5.0); ALKALINE PHOSPHATASE 96 U/L (38-126); ANION GAP 13 (5-19); ASPARTATE AMINO TRANSFERASE 35 U/L (17-59); BILIRUBIN,DIRECT 0.1 mg/dL (0.0-0.4); BILIRUBIN,TOTAL 0.4 mg/dL (0.2-1.3); BLOOD UREA NITROGEN 14 mg/dL (7-20); CALCIUM 10.2 mg/dL (8.4-10.2); CARBON DIOXIDE 27 mmol/L (22-30); CHLORIDE 100 mmol/L (98-107); GLUCOSE 102 mg/dL (75-110); POTASSIUM 5.4 mmol/L (3.6-5.0); SODIUM 139.7 mmol/L (137-145); TOTAL PROTEIN 7.4 g/dL (6.3-8.2)
--- NOTE | 2017-04-28 16:40 | RADIOLOGY REPORT (SQ) ---
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 TECHNIQUE: AP, lateral and oblique radiographic images acquired of the right foot. LIMITATIONS: None. FINDINGS: MINERALIZATION: Normal. BONES: No acute fracture or dislocation. There is no plain film evidence for bony involvement by ost eomyelitis. JOINTS: No effusions. SOFT TISSUES: No soft tissue swelling. No foreign body. OTHER: No other significant finding. IMPRESSION: No significant findings. There is no plain film evidence for bony involvement by osteom yelitis. Other findings as noted above TECHNICAL DOCUMENTATION: JOB ID: [id number] [employer]- All Rights Reserved Reading location - IP/workstation name: [facility]
[2017-04-28 16:47] LABS: C-REACTIVE PROTEIN < 5.0 mg/L (<10.0)
[2017-04-28 16:50] LABS: ERYTHROCYTE SEDIMENTATION RATE 25 mm/hr (0-15)
== END ==
LOC: WC 15:03
PROVIDERS: ATTEND Preventive Medicine Undersea and Hyperbaric Medicine
DX: E11.621 Type 2 diabetes mellitus with foot ulcer (principal); L97.512 Non-pressure chronic ulcer of other part of right foot with fat layer exposed
CPT/HCPCS: 36415; 80053; 83036; 85025; 85652; 86140

== ENCOUNTER 2017-07-03 16:09 | Emergency (ER) | payer BC, MEDICAID, OTHER ==
[2017-07-03] MEDS ORDERED: HYDROCODONE/ACETAMINOPHEN 5-325 MG TABLET PO ONE (16:47)
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
[2017-07-03] MEDS ORDERED: BACITRACIN ZINC OINTMENT 15 GM TP ONE (18:47)
--- NOTE | 2017-07-03 18:51 | ER Document Report ---
ED Burn/Smoke/Toxic Fumes - General Chief Complaint: Burn Stated Complaint: CHEST,FACE,ARM INJURY Time Seen by Provider: 07/03/17 16:43 Mode of Arrival: Ambulatory Information source: Patient TRAVEL OUTSIDE OF THE [place] IN LAST 30 DAYS: No - HPI Patient complains to provider of: Burn Notes: Patient is here with complaints of burn. He states he was working on a hot water tank when the pop off valve popped off, and he was burned with hot water. He states that he was burned to his chest arms and just above his right eye. He denies any difficulty breathing or swallowing. He complains of some mild pain. He denies any nausea, vomiting, diarrhea. Last tetanus within the last 5 years. No chest pain or shortness of breath. No other injury and no other complaints at this time. - Related Data Allergies/Adverse Reactions: Influenza A (H1N1)Vaccine 2008 * [Influenza A (H1N1)Vaccine 2008] Allergy ( Verified 07/01/16 15:10) Past Medical History - Social History Smoking Status: Unknown if Ever Smoked Family History: Reviewed & Not Pertinent Patient has suicidal ideation: No Patient has homicidal ideation: No - Past Medical History Cardiac Medical History: Reports: Hx Hypercholesterolemia, Hx Hypertension Neurological Medical History: Denies: Hx Cerebrovascular Accident Endocrine Medical History: Reports: Hx Diabetes Mellitus Type 1, Hx Diabetes Mellitus Type 2 Renal/ Medical History: Denies: Hx Peritoneal Dialysis Psychiatric Medical History: Reports: Hx Depression Past Surgical History: Reports: Hx Appendectomy, Hx Orthopedic Surgery - left arm, Hx Tonsillectomy - Immunizations Hx Diphtheria, Pertussis, Tetanus Vaccination: Yes Review of Systems - Review of Systems -: Yes All other systems reviewed and negative Physical Exam - Vital signs Vitals: Temp Pulse Resp BP Pulse Ox 97.8 F 89 18 150/79 H 100 07/03/17 16:21 07/03/17 16:21 07/03/17 16:21 07/03/17 16:21 07/03/17 16:21 - Notes Notes: GENERAL: alert, cooperative, nontoxic, no distress. HEAD: normocephalic, atraumatic EYES: conjunctiva pink without discharge, no external redness or swelling. EARS: no external swelling, no external redness NOSE: atraumatic, no external swelling MOUTH/THROAT: mucous membranes moist and pink. No lip or tongue swelling. No difficulty breathing or swallowing. NECK: soft, supple, full range of motion, no meningismus. CHEST: no distress, lungs clear and equal throughout. No wheezing, rales, rhonchi. CARDIAC: regular rate and rhythm, no murmur, normal capillary refill, normal pulses. BACK: full range of motion, no CVA tenderness. EXTREMITIES: full range of motion of all extremities. No redness, no swelling. NEURO: alert and oriented 3, no focal deficits, full range of motion of all extremities. PYSCH: appropriate mood, affect. Patient is cooperative. SKIN: pink, warm, dry, no rash. Minimal redness to the skin of the arms the upper chest. No blistering or obvious deep cruz. No drainage. Course - Re-evaluation Re-evalutation: 07/03/17 18:49 Patient is nontoxic appearing with stable vitals. Is here with complaints of hot water cruz while working on a hot water tank. He has minimal redness to his skin on his arms his upper chest and a spot just above his right eyebrow. There is no blistering or deep cruz. No airway compromise. Patient was given [place] out in triage. His tetanus is up-to-date. We will have bacitracin applied to his areas of burn. Instructed to clean these areas twice a day with soap and water, apply bacitracin, follow-up for increasing pain, fever, redness , drainage, any further concerns. The patient is noted to have elevated blood pressure during today's emergency department visit. The patient was informed of this finding. The patient was instructed that this may be related to pre-hypertension and requires further evaluation with a primary care provider. The patient has no hypertensive symptoms at this time. The patient's emergency department workup and current diagnosis were explained to the patient and or family. Follow-up instructions were provided. Medications if prescribed were discussed. Instructions for when to return to the emergency department including specific worrisome symptoms were discussed with the patient and/or family. - Vital Signs Vital signs: Temp Pulse Resp BP Pulse Ox 97.8 F 89 18 150/79 H 100 07/03/17 16:21 07/03/17 16:21 07/03/17 16:21 07/03/17 16:21 07/03/17 16:21 Discharge - Discharge Clinical Impression: First degree burn Condition: Stable Disposition: HOME, SELF-CARE Instructions: [facility] ([facility]), Cruz ([facility]), Soap Cleansing ([facility]) Additional Instructions: Clean cruz twice a day with soap and water. Apply bacitracin ointment. Take medications as prescribed. Follow-up for increasing pain, fever, redness, drainage, any further concerns. Your blood pressure was elevated during today's visit. Have this rechecked with your doctor. Prescriptions: Bacitracin Zinc [Bacitracin Oint 15 gm] 1 applic TP BID #1 tube Naproxen [Naprosyn] 500 mg PO BID #20 tablet Forms: Elevated Blood Pressure, Smoking Cessation Education Referrals: BRYSON SANCHEZ MD [Primary Care Provider] - Follow up as needed
[2017-07-03 19:39] VITALS: BP 141/70
== END 2017-07-03 19:39 | disposition home or self-care (01) ==
LOC: ER 16:09
DX: T21.11XA Burn of first degree of chest wall, initial encounter (principal); T22.10XA Burn of first degree of shoulder and upper limb, except wrist and hand, unspecified site, initial encounter; T20.16XA Burn of first degree of forehead and cheek, initial encounter; X11.8XXA Contact with other hot tap-water, initial encounter; Y93.89 Activity, other specified; Y92.009 Unspecified place in unspecified non-institutional (private) residence as the place of occurrence of the external cause; I10 Essential (primary) hypertension; E11.9 Type 2 diabetes mellitus without complications; Z88.7 Allergy status to serum and vaccine
CPT/HCPCS: 99283; 82962; J3490

== ENCOUNTER 2017-08-23 20:55 | Emergency (ER) | payer MEDICARE, BC ==
[2017-08-23 21:52] LABS: ALANINE AMINOTRANSFERASE 37 U/L (21-72); ALBUMIN 3.9 g/dL (3.5-5.0); ALKALINE PHOSPHATASE 89 U/L (38-126); ANION GAP 11 (5-19); ASPARTATE AMINO TRANSFERASE 22 U/L (17-59); BILIRUBIN,DIRECT 0.3 mg/dL (0.0-0.4); BILIRUBIN,TOTAL 0.8 mg/dL (0.2-1.3); BLOOD UREA NITROGEN 11 mg/dL (7-20); CARBON DIOXIDE 25 mmol/L (22-30); CHLORIDE 102 mmol/L (98-107); GLUCOSE 250 mg/dL (75-110); POTASSIUM 3.9 mmol/L (3.6-5.0); SODIUM 138.4 mmol/L (137-145); TOTAL PROTEIN 6.7 g/dL (6.3-8.2)
[2017-08-23] MEDS ORDERED: DIPH/PERTUSS(ACELL)/TETANUS VAC/PF 0.5 ML SYR (>=10YO) IM ONE (21:54)
--- NOTE | 2017-08-23 22:11 | ER Document Report ---
ED General - General Chief Complaint: Low Blood Sugar Stated Complaint: BLOOD SUGAR PROBLEMS Time Seen by Provider: 08/23/17 21:09 Mode of Arrival: Ambulatory Information source: Patient Notes: Patient is a 41-year-old male with diabetes who presents with low blood sugar. EMS reports that glucose was initially 18 at the patient's home. Patient was given 25 g of date 10 IV. Subsequent blood sugars were 142, 156, 213 per EMS. Patient reports that he takes both NovoLog sliding scale as well as Lantus. Patient is also under clinical trials on a medication called Relamorelin for his diabetic gastroparesis. Patient reports that his care is managed by both Dr. Sanchez as well as Dr. Pendleton. Patient is alert and oriented in initial glucose on arrival to [place] was 286. Patient does report that he has chronic abdominal pain and that he is also feeling a little "dazed and confused". TRAVEL OUTSIDE OF THE U.S. IN LAST 30 DAYS: No - Related Data Allergies/Adverse Reactions: Influenza A (H1N1)Vaccine 2008 * [Influenza A (H1N1)Vaccine 2008] Allergy ( Verified 07/01/16 15:10) Past Medical History - General Information source: Patient, Relative - Spouse - Social History Smoking Status: Never Smoker Chew tobacco use (# tins/day): No Frequency of alcohol use: None Drug Abuse: None Family History: Reviewed & Not Pertinent Patient has suicidal ideation: No Patient has homicidal ideation: No - Past Medical History Cardiac Medical History: Reports: Hx Hypercholesterolemia, Hx Hypertension Neurological Medical History: Denies: Hx Cerebrovascular Accident Endocrine Medical History: Reports: Hx Diabetes Mellitus Type 1, Hx Diabetes Mellitus Type 2 Renal/ Medical History: Denies: Hx Peritoneal Dialysis Psychiatric Medical History: Reports: Hx Depression Past Surgical History: Reports: Hx Appendectomy, Hx Orthopedic Surgery - left arm, Hx Tonsillectomy - Immunizations Hx Diphtheria, Pertussis, Tetanus Vaccination: Yes Review of Systems - Review of Systems Constitutional: See HPI EENT: No symptoms reported Cardiovascular: No symptoms reported Respiratory: No symptoms reported Gastrointestinal: See HPI Genitourinary: No symptoms reported Male Genitourinary: No symptoms reported Musculoskeletal: No symptoms reported Skin: No symptoms reported Hematologic/Lymphatic: No symptoms reported Neurological/Psychological: No symptoms reported Physical Exam - Vital signs Vitals: Resp BP Pulse Ox 22 H 162/90 H 97 08/23/17 21:08/23/17 21:08/23/17 21:01 - Notes Notes: PHYSICAL EXAMINATION: GENERAL: Disheveled appearing, malnourished adult male in no acute distress. HEAD: Atraumatic, normocephalic. EYES: Pupils equal round and reactive to light, extraocular movements intact, sclera anicteric, conjunctiva are normal. ENT: Nares patent, oropharynx clear without exudates. Moist mucous membranes. NECK: Normal range of motion, supple without lymphadenopathy LUNGS: Breath sounds clear to auscultation bilaterally and equal. No wheezes rales or rhonchi. HEART: Regular rate and rhythm without murmurs ABDOMEN: Soft, nontender, nondistended abdomen. No guarding, no rebound. No masses appreciated. Musculoskeletal: Normal range of motion, no pitting or edema. No cyanosis. NEUROLOGICAL: Cranial nerves grossly intact. Normal speech. Normal sensory, motor exams bilaterally, equal fabrics and material cutter, equal strength bilaterally. PSYCH: Normal mood, normal affect. SKIN: Warm, Dry, normal turgor, multiple lesions noted (patient reports these are bug bites). Course - Re-evaluation Re-evalutation: Initial glucose at [facility] was 286. Patient reports that he took his insulin today as prescribed however patient reports that he has not eaten much today. Consulted with Dr. Mckeon, ER attending who recommends to monitor glucose every 30 minutes and feed patient. On reevaluation patient continues to be alert and oriented. Patient reports that he does have a anais on the plantar surface of his right foot from where he states he stepped on a staple yesterday. There is no redness noted, no evidence of a cellulitis. Patient unsure of last tetanus shot date so will update with Tdap today. We will continue to monitor patient and repeat Accu- Cheks every 30 minutes. Patient has had no decrease or sudden drops in his blood sugar over a approximately 3 hour monitoring period. Patient has been asymptomatic during his entire emergency department visit. Patient's is at bedside. Plan of care is for patient to be discharged home, patient will call Dr. Whitehead office in the morning regarding further direction on his insulin administration. - Vital Signs Vital signs: Temp Pulse Resp BP Pulse Ox 15 157/87 H 100 08/23/17 23:01 08/23/17 23:01 08/23/17 23:01 - Laboratory Result Diagrams: 08/23/17 21:25 Laboratory results interpreted by me: 08/23/17 08/23/17 08/23/17 21:10 21:25 21:44 Glucose 250 H POC Glucose 286 H 371 H 08/23/17 08/23/17 22:28 23:46 Glucose POC Glucose 334 H 309 H Discharge - Discharge Clinical Impression: Hypoglycemia Condition: Stable Disposition: HOME, SELF-CARE Admitting Provider: [place] Additional Instructions: Hypoglycemia You have suffered an episode of hypoglycemia (low blood sugar). Typical symptoms of hypoglycemia are shaking, sweating, headache, and confusion. When severe, unconsciousness or seizure may occur. Hypoglycemia occurs when a person taking insulin or diabetes pills has a change in the amount of blood sugar available -- due to exercise, decreased food intake, or alcohol. Should you feel symptoms of hypoglycemia again, immediately take some form of sugar such as sweetened juice. As the reaction subsides, eat a complex carbohydrate such as bread. If possible, check your blood sugar using a chemical strip. If episodes are occurring without obvious explanation, contact your physician for further evaluation. Please follow-up with Dr. Sanchez in the morning. Please do not take any more insulin tonight. Your blood sugar was dangerously low when EMS arrived. Your blood sugar has been monitored over the last 3 and half hours and has been found to be elevated each time. Please return to the emergency department if you develop another episode of hypoglycemia or any other symptoms that are concerning to you. Referrals: BRYSON SANCHEZ MD [Primary Care Provider] - Follow up as needed
[2017-08-24 00:19] VITALS: BP 136/72
== END 2017-08-24 00:27 | disposition home or self-care (01) ==
LOC: ER 20:55
DX: E11.649 Type 2 diabetes mellitus with hypoglycemia without coma (principal); E11.43 Type 2 diabetes mellitus with diabetic autonomic (poly)neuropathy; K31.84 Gastroparesis; Z79.01 Long term (current) use of anticoagulants; I10 Essential (primary) hypertension
CPT/HCPCS: 36415; 80053; 82962; 90471; 90715; 99285

== ENCOUNTER → 2018-02-19 | Outpatient (CLI) | payer BC, MEDICARE ==
--- NOTE | 2018-02-19 14:47 | RADIOLOGY REPORT (SQ) ---
EXAM DESCRIPTION: FOOT LEFT COMPLETE COMPLETED DATE/TIME: 02/19/2018 1:57 pm REASON FOR STUDY: L97.522 NON-PRS CHRONIC ULCER OTH PRT LEFT FOOT W FAT LAYER EXPOSED L97.522 NON-P RS CHRONIC ULCER OTH PRT LEFT FOOT W FAT LAYER COMPARISON: None. NUMBER OF VIEWS: Three views. TECHNIQUE: AP, lateral and oblique radiographic images acquired of the left foot. LIMITATIONS: None. FINDINGS: MINERALIZATION: Normal. BONES: There is deformity of the base of the left 2nd proximal phalanx which could represent old post traumatic change. Thickening of the cortex laterally at the base of the left 1st metatarsal. Otherw ise, no acute fracture or bony abnormality seen. JOINTS: No effusions. SOFT TISSUES: No soft tissue air identified. OTHER: Vascular calcification noted. IMPRESSION: No acute fracture or bony abnormality seen. TECHNICAL DOCUMENTATION: JOB ID: [id number] [employer]- All Rights Reserved Reading location - IP/workstation name: [email or web address]
[2018-02-19 15:49] LABS: ABSOLUTE BASOPHILS # (AUTO) 0.1 10^3/uL (0.0-0.2); ABSOLUTE MONOCYTES (AUTO) 0.4 10^3/uL (0.1-1.4); ABSOLUTE NEUT (AUTO) 5.4 10^3/uL (1.7-8.2); BASOPHILS % (AUTO) 0.8 % (0-2); EOSINOPHILS % (AUTO) 0.6 % (0-6); HEMATOCRIT 41.7 % (37.9-51.0); LYMPHOCYTES % (AUTO) 25.1 % (13-45); MEAN CORPUSCULAR HEMOGLOBIN 31.4 pg (27.0-33.4); MEAN CORPUSCULAR HGB CONC 33.7 g/dL (32.0-36.0); MEAN CORPUSCULAR VOLUME 93 fl (80-97); MONOCYTES % (AUTO) 5.5 % (3-13); PLATELET COUNT 312 10^3/uL (150-450); RED BLOOD COUNT 4.46 10^6/uL (4.35-5.55); RED CELL DISTRIBUTION WIDTH 13.4 % (11.5-14.0); TOTAL CELLS COUNTED % (AUTO) 100 %; WHITE BLOOD COUNT 7.9 10^3/uL (4.0-10.5)
[2018-02-19 16:19] LABS: ALANINE AMINOTRANSFERASE 47 U/L (21-72); ALBUMIN 4.4 g/dL (3.5-5.0); ALKALINE PHOSPHATASE 109 U/L (38-126); ANION GAP 10 (5-19); ASPARTATE AMINO TRANSFERASE 23 U/L (17-59); BILIRUBIN,DIRECT 0.2 mg/dL (0.0-0.4); BILIRUBIN,TOTAL 0.7 mg/dL (0.2-1.3); BLOOD UREA NITROGEN 20 mg/dL (7-20); C-REACTIVE PROTEIN 5.4 mg/L (<10.0); CALCIUM 10.1 mg/dL (8.4-10.2); CARBON DIOXIDE 31 mmol/L (22-30); CHLORIDE 97 mmol/L (98-107); POTASSIUM 5.4 mmol/L (3.6-5.0); SODIUM 138.3 mmol/L (137-145); TOTAL PROTEIN 7.7 g/dL (6.3-8.2)
[2018-02-19 16:31] LABS: ERYTHROCYTE SEDIMENTATION RATE 27 mm/hr (0-15)
[2018-02-20 11:48] LABS: GLUCOSE 401 mg/dL (75-110)
== END ==
LOC: SP 13:43
PROVIDERS: ATTEND Nurse Practitioner
DX: E11.621 Type 2 diabetes mellitus with foot ulcer (principal); L97.522 Non-pressure chronic ulcer of other part of left foot with fat layer exposed
CPT/HCPCS: 36415; 80053; 83036; 85025; 85652; 86140; 93922; 93925; 93970

== ENCOUNTER 2018-02-20 12:47 | Inpatient (IN) | payer BC, MEDICARE ==
[2018-02-20] MEDS ORDERED: NORMAL SALINE 1000 ML 1,000 ML IV ONE ×3 (13:02→14:29)
--- NOTE | 2018-02-20 13:11 | ER Document Report ---
ED Medical Screen (RME) - General Chief Complaint: Pain All Over Stated Complaint: VOMITING Time Seen by Provider: 02/20/18 13:05 TRAVEL OUTSIDE OF THE U.S. IN LAST 30 DAYS: No - Related Data Allergies/Adverse Reactions: Influenza A (H1N1)Vaccine 2008 * [Influenza A (H1N1)Vaccine 2008] Allergy (Verified 02/20/18 12:49) Past Medical History - Past Medical History Cardiac Medical History: Reports: Hx Hypercholesterolemia, Hx Hypertension Neurological Medical History: Denies: Hx Cerebrovascular Accident Endocrine Medical History: Reports: Hx Diabetes Mellitus Type 1, Hx Diabetes Mellitus Type 2 Renal/ Medical History: Denies: Hx Peritoneal Dialysis Psychiatric Medical History: Reports: Hx Depression Past Surgical History: Reports: Hx Appendectomy, Hx Orthopedic Surgery - left arm, Hx Tonsillectomy - Immunizations Hx Diphtheria, Pertussis, Tetanus Vaccination: Yes Physical Exam - Vital signs Vitals: Pulse Resp BP Pulse Ox 84 20 68/39 L 100 02/20/18 12:58 02/20/18 12:58 02/20/18 12:58 02/20/18 12:58 Course - Re-evaluation Re-evalutation: 42-year-old man who presents for evaluation of pain all over his entire body including his abdomen and chest. Is a history of type 1 diabetes is being followed currently for vascular insufficiency and concern of issues related to his legs for which she underwent x-rays and blood tests yesterday. Per blood work yesterday his glucose was 400 without an obvious anion gap. His feet do not demonstrate any obvious open weeping sores. This gentleman represents a broad differential, will initiate a broad workup including venous blood gas, urinalysis, chest x-ray, CBC CMP lipase. His Accu- Chek in the room is 279. As this gentleman his initial blood pressure was 69/40 emergently moved to resuscitation room for venous access and administration of normal saline. I have seen and evaluated this patient in rapid screening evaluation. Workup has been initiated. Further diagnostics appropriate disposition and reevaluation should be performed by a second provider in the emergency department. - Vital Signs Vital signs: Temp Pulse Resp BP Pulse Ox 84 20 68/39 L 100 02/20/18 12:58 02/20/18 12:58 02/20/18 12:58 02/20/18 12:58 Doctor's Discharge - Discharge Referrals: BALAWENDER,MEME N, SOCIAL SERVICES DESIGNEE [Primary Care Provider] - Follow up as needed
--- NOTE | 2018-02-20 13:35 | RADIOLOGY REPORT (SQ) ---
EXAM DESCRIPTION: CHEST SINGLE VIEW COMPLETED DATE/TIME: 02/20/2018 1:24 pm REASON FOR STUDY: concern for DKA source COMPARISON: None. EXAM PARAMETERS: NUMBER OF VIEWS: One view. TECHNIQUE: Single frontal radiographic view of the chest acquired. RADIATION DOSE: NA LIMITATIONS: None. FINDINGS: LUNGS AND PLEURA: No opacities, masses or pneumothorax. No pleural effusion. MEDIASTINUM AND HILAR STRUCTURES: No masses. Contour normal. HEART AND VASCULAR STRUCTURES: Heart normal in size. Normal vasculature. BONES: No acute findings. HARDWARE: None in the chest. OTHER: No other significant finding. IMPRESSION: NO ACUTE RADIOGRAPHIC FINDING IN THE CHEST. TECHNICAL DOCUMENTATION: JOB ID: [id number] [email or web address]- All Rights Reserved Reading location - IP/workstation name: [email or web address]
[2018-02-20 13:36] LABS: VENOUS BLOOD BASE EXCESS -0.4 mmol/L; VENOUS BLOOD HCO3 26.3 mmol/L (20-32); VENOUS BLOOD PH 7.33 (7.30-7.42)
[2018-02-20 13:42] LABS: ABSOLUTE BASOPHILS # (AUTO) 0.1 10^3/uL (0.0-0.2); ABSOLUTE EOSINOPHILS # (AUTO) 0.1 10^3/uL (0.0-0.6); ABSOLUTE LYMPHOCYTES (AUTO) 2.3 10^3/uL (0.5-4.7); ABSOLUTE MONOCYTES (AUTO) 0.5 10^3/uL (0.1-1.4); ABSOLUTE NEUT (AUTO) 5.4 10^3/uL (1.7-8.2); BASOPHILS % (AUTO) 0.6 % (0-2); EOSINOPHILS % (AUTO) 0.9 % (0-6); HEMATOCRIT 42.6 % (37.9-51.0); HEMOGLOBIN 14.5 g/dL (13.5-17.0); LYMPHOCYTES % (AUTO) 27.3 % (13-45); MEAN CORPUSCULAR HEMOGLOBIN 31.5 pg (27.0-33.4); MEAN CORPUSCULAR HGB CONC 34.1 g/dL (32.0-36.0); MEAN CORPUSCULAR VOLUME 92 fl (80-97); MONOCYTES % (AUTO) 6.5 % (3-13); PLATELET COUNT 394 10^3/uL (150-450); RED BLOOD COUNT 4.62 10^6/uL (4.35-5.55); RED CELL DISTRIBUTION WIDTH 13.2 % (11.5-14.0); SEGMENTED NEUTROPHILS % (AUTO) 64.7 % (42-78); TOTAL CELLS COUNTED % (AUTO) 100 %; WHITE BLOOD COUNT 8.4 10^3/uL (4.0-10.5)
[2018-02-20] MEDS ORDERED: ONDANSETRON HCL INJ/PF 4 MG/2 ML SDV IV ONE (13:47)
[2018-02-20] MEDS ORDERED: MORPHINE SULFATE 10 MG/ML INJ IV ONE (13:47)
--- NOTE | 2018-02-20 13:49 | ER Document Report ---
ED General - General Information source: Patient TRAVEL OUTSIDE OF THE [place]. IN LAST 30 DAYS: No <SAM JEFFRIES - Last Filed: 02/20/18 13:46> <ROMAN BRAGG - Last Filed: 02/20/18 15:59> - General Chief Complaint: Pain All Over Stated Complaint: VOMITING Time Seen by Provider: 02/20/18 13:05 Notes: 42-year-old type I diabetic who presents to the emergency department today with complaints of elevated BGL's with associated nausea, vomiting, and crampy abdominal pain. Patient states that he has been very thirsty today. Patient states he took his blood sugar today and it was 379. Patient states when he tried to eat after taking his blood sugar he became nauseated and vomited. Patient states he took his blood sugar because he "just did not feel right this morning". On arrival the patient had a blood pressure of 60/39. Patient states he has had associated chills and diarrhea. Patient denies fevers. (SAM JEFFRIES) - Related Data Allergies/Adverse Reactions: Influenza A (H1N1)Vaccine 2008 * [Influenza A (H1N1)Vaccine 2008] Allergy (Verified 02/20/18 12:49) Past Medical History - General Information source: Patient - Social History Smoking Status: Unknown if Ever Smoked Cigarette use (# per day): No Frequency of alcohol use: None Drug Abuse: None Lives with: Family Family History: Reviewed & Not Pertinent Patient has suicidal ideation: No Patient has homicidal ideation: No - Past Medical History Cardiac Medical History: Reports: Hx Hypercholesterolemia, Hx Hypertension Endocrine Medical History: Reports: Hx Diabetes Mellitus Type 1 Psychiatric Medical History: Reports: Hx Depression Past Surgical History: Reports: Hx Appendectomy, Hx Orthopedic Surgery - left a rm, Hx Tonsillectomy - Immunizations Hx Diphtheria, Pertussis, Tetanus Vaccination: Yes <SAM JEFFRIES - Last Filed: 02/20/18 13:46> Review of Systems - Review of Systems Constitutional: See HPI, Chills, Diaphoresis, Other - elevated BGL, feeling thirsty. denies: Fever EENT: No symptoms reported Cardiovascular: No symptoms reported Respiratory: No symptoms reported Gastrointestinal: See HPI, Abdominal pain, Diarrhea, Nausea, Vomiting Genitourinary: No symptoms reported Male Genitourinary: No symptoms reported Musculoskeletal: No symptoms reported Skin: No symptoms reported Hematologic/Lymphatic: No symptoms reported Neurological/Psychological: No symptoms reported -: Yes All other systems reviewed and negative <SAM JEFFRIES - Last Filed: 02/20/18 13:46> Physical Exam <MERVINSAM - Last Filed: 02/20/18 13:46> - Vital signs Vitals: Pulse Resp BP Pulse Ox 84 20 68/39 L 100 02/20/18 12:58 02/20/18 12:58 02/20/18 12:58 02/20/18 12:58 - Notes Notes: Physical Exam: General: Alert. Interacts appropriately. HEENT: Normocephalic. Atraumatic. PERRL. Extraocular movements intact. Oropharynx clear. Dry oral mucosa, teeth are coated. Neck: Supple. Non-tender. Respiratory: Tachypneic. Clear and equal breath sounds bilaterally. Cardiovascular: Regular rate and rhythm. Abdominal: Guarding but no tenderness with palpation. No distension. Normal Bowel Sounds. Back: Non-tender. No deformity or step off. Extremities: Moves all four extremities. Upper extremities: Normal inspection. Normal ROM. Lower extremities: See skin. No edema. Normal ROM. Neurological: Normal cognition. AAOx4. Normal speech. Psychological: Normal affect. Normal Mood. Skin: Skin changes of the feet and ankles bilaterally consistent with diagnosis of vasculitis. (SAM JEFFRIES) Course - Laboratory Result Diagrams: 02/20/18 13:09 02/20/18 13:04 <SAM JEFFRIES - Last Filed: 02/20/18 13:46> - Laboratory Result Diagrams: 02/20/18 13:09 02/20/18 13:04 - Diagnostic Test Radiology reviewed: Image reviewed, Reports reviewed - Chest x-ray is unremarkable - EKG Interpretation by Nm EKG shows normal: Sinus rhythm, Boyce, Intervals, QRS Complexes, ST-T Waves Rate: Normal - 83 Rhythm: NSR - Consults Dr. Diego Time consulted: 15:55 Consulted provider: will see as inpatient <ROMAN BRAGG - Last Filed: 02/20/18 15:59> - Re-evaluation Re-evalutation: 02/20/18 14:52 Patient's initial blood pressure was 68/39, after 1 L of fluid his pressure was up to 80/69. Now after the second liter of fluids his pressure is up to 122/72. He states he does feel much better, but he did get 2 mg of morphine and 8 mg of Zofran IV. (ROMAN BRAGG) - Vital Signs Vital signs: Temp Pulse Resp BP Pulse Ox 84 11 L 115/68 99 02/20/18 12:58 02/20/18 15:31 02/20/18 15:31 02/20/18 15:01 - Laboratory Laboratory results interpreted by me: 02/20/18 02/20/18 02/20/18 13:04 13:09 13:09 Sodium 135.7 L Chloride 96 L BUN 25 H Creatinine 1.51 H Est GFR (Non-Af Amer) 50 L Glucose 265 H Lactic Acid 2.7 H Calcium 10.6 H Magnesium 2.8 H Creatine Kinase 42 L Total Protein 8.9 H Critical Care Note - Critical Care Note Total time excluding time spent on procedures (mins): 45 <ROMAN BRAGG - Last Filed: 02/20/18 15:59> Discharge <SAM JEFFRIES - Last Filed: 02/20/18 13:46> - Discharge Admitting Provider: Medina Diego covering Unit Admitted: Telemetry <ROMAN BRAGG - Last Filed: 02/20/18 15:59> - Discharge Clinical Impression: Hyperglycemia due to type 1 diabetes mellitus, Dehydration, Nausea, vomiting and diarrhea Hypotension Qualifiers: Hypotension type: unspecified hypotension type Qualified Code(s): I95.9 - Hypotension, unspecified Condition: Stable Disposition: ADMITTED INPATIENT Referrals: [facility], EMPLOYEE PLACEMENT SPECIALIST [ALLIED HEALTH PROFESSIONAL] - Follow up as needed Scribe Attestation: 02/20/18 14:43 I personally performed the services described in the documentation, reviewed and edited the documentation which was dictated to the scribe in my presence, and it accurately records my words and actions. (ROMAN BRAGG)
[2018-02-20 13:50] LABS: ALANINE AMINOTRANSFERASE 35 U/L (21-72); ALBUMIN 4.9 g/dL (3.5-5.0); ALKALINE PHOSPHATASE 105 U/L (38-126); ANION GAP 13 (5-19); ASPARTATE AMINO TRANSFERASE 25 U/L (17-59); BILIRUBIN,DIRECT 0.3 mg/dL (0.0-0.4); BILIRUBIN,TOTAL 0.7 mg/dL (0.2-1.3); BLOOD UREA NITROGEN 25 mg/dL (7-20); CALCIUM 10.6 mg/dL (8.4-10.2); CARBON DIOXIDE 27 mmol/L (22-30); CHLORIDE 96 mmol/L (98-107); CREATINE KINASE 42 U/L (55-170); GLUCOSE 265 mg/dL (75-110); LIPASE 52.5 U/L (23-300); POTASSIUM 4.7 mmol/L (3.6-5.0); SODIUM 135.7 mmol/L (137-145); TOTAL PROTEIN 8.9 g/dL (6.3-8.2)
[2018-02-20 14:13] LABS: CREATINE KINASE MB 1.12 ng/mL (<4.55); TROPONIN I < 0.012 ng/mL
[2018-02-20] MEDS ORDERED: ERTAPENEM SODIUM INJ 1 GM VIAL IV ONE (14:44)
[2018-02-20] MEDS ORDERED: DEXTROSE 50%-WATER 25 GM/50 ML DISP.SYRIN IV ONE (14:46)
--- NOTE | 2018-02-20 15:34 | EKG REPORT ---
SEVERITY:- NORMAL ECG - SINUS RHYTHM : Confirmed by: Juany Lewis 20-Feb-2018 15:34:08
[2018-02-20] MEDS ORDERED: DEXTROSE 50%-WATER 25 GM/50 ML DISP.SYRIN IV PRN ×2 (17:20)
[2018-02-20] MEDS ORDERED: DEXTROSE 40% GEL 15 GM TUBE PO PRN ×2 (17:20)
[2018-02-20] MEDS ORDERED: GLUCAGON,HUMAN RECOMB 1 MG INJ IM PRN (17:20)
[2018-02-20 17:59] LABS: ARTERIAL BLOOD BASE EXCESS -1.4 mmol/L; ARTERIAL BLOOD FIO2 21%; ARTERIAL BLOOD H2CO3 1.12 mmol/L (1.05-1.35); ARTERIAL BLOOD O2 SATURATION 98.2 % (94-98); ARTERIAL BLOOD PCO2 37.3 mmHg (35-45); ARTERIAL BLOOD PH 7.41 (7.35-7.45); ARTERIAL BLOOD PO2 112.2 mmHg (80-100); ARTERIAL BLOOD TOTAL CO2 24.1 mmol/L (23-27)
[2018-02-20 19:12] LABS: INTERNATIONAL RATION (INR) 0.94; PARTIAL THROMBOPLASTIN TIME 26.8 SEC (23.5-35.8); PROTHROMBIN TIME 13.1 SEC (11.4-15.4)
[2018-02-20 19:17] LABS: LIPASE 56.3 U/L (23-300); PHOSPHORUS 4.1 mg/dL (2.5-4.5)
[2018-02-20 19:29] LABS: TROPONIN I < 0.012 ng/mL
[2018-02-20 19:31] LABS: FREE T4 (FREE THYROXINE) 0.97 ng/dL (0.78-2.19)
[2018-02-20 19:45] LABS: THYROID STIMULATING HORMONE 0.61 uIU/mL (0.47-4.68)
[2018-02-20 20:09] LABS: APPEARANCE,URINE CLEAR; BILIRUBIN,URINE NEGATIVE (NEGATIVE); COLOR,URINE YELLOW; GLUCOSE, URINE >=500 mg/dL (NEGATIVE); KETONES,URINE NEGATIVE (NEGATIVE); LEUKOCYTE ESTERASE,URINE NEGATIVE (NEGATIVE); NITRITE,URINE NEGATIVE (NEGATIVE); PROTEIN,URINE NEGATIVE (NEGATIVE); URINE SPECIFIC GRAVITY 1.014; UROBILINOGEN,URINE NEGATIVE mg/dL (<2.0)
[2018-02-20 20:21] LABS: URINE AMPHETAMINES SCREEN NEGATIVE; URINE BARBITURATES SCREEN NEGATIVE; URINE COCAINE SCREEN NEGATIVE; URINE MARIJUANA (THC) SCREEN NEGATIVE; URINE METHADONE SCREEN NEGATIVE; URINE PHENCYCLIDINE SCREEN NEGATIVE
[2018-02-20 20:26] LABS: URINE BENZODIAZEPINES SCREEN NEGATIVE
[2018-02-20] MEDS ORDERED: VENLAFAXINE HCL 25 MG TABLET ONE (22:01)
[2018-02-20] MEDS: ATORVASTATIN CALCIUM 80 MG TABLET PO SCH (22:08)
[2018-02-20] MEDS: VENLAFAXINE HCL 25 MG TABLET PO SCH (22:09)
[2018-02-20] MEDS: LISINOPRIL 10 MG TABLET PO SCH (22:09)
[2018-02-20] MEDS: TRAZODONE HCL 50 MG TABLET PO SCH (22:10)
[2018-02-21 01:30] LABS: CREATINE KINASE MB 1.35 ng/mL (<4.55)
[2018-02-21 01:32] LABS: TROPONIN I < 0.012 ng/mL
[2018-02-21] MEDS: LANSOPRAZOLE 30 MG TAB.RAP.DR PO SCH (05:46)
[2018-02-21 07:34] LABS: ABSOLUTE BASOPHILS # (AUTO) 0.1 10^3/uL (0.0-0.2); ABSOLUTE EOSINOPHILS # (AUTO) 0.2 10^3/uL (0.0-0.6); ABSOLUTE LYMPHOCYTES (AUTO) 1.7 10^3/uL (0.5-4.7); ABSOLUTE MONOCYTES (AUTO) 0.6 10^3/uL (0.1-1.4); ABSOLUTE NEUT (AUTO) 6.8 10^3/uL (1.7-8.2); BASOPHILS % (AUTO) 0.6 % (0-2); EOSINOPHILS % (AUTO) 2.6 % (0-6); HEMATOCRIT 32.4 % (37.9-51.0); LYMPHOCYTES % (AUTO) 17.8 % (13-45); MEAN CORPUSCULAR HEMOGLOBIN 31.4 pg (27.0-33.4); MEAN CORPUSCULAR HGB CONC 34.2 g/dL (32.0-36.0); MEAN CORPUSCULAR VOLUME 92 fl (80-97); MONOCYTES % (AUTO) 6.5 % (3-13); PLATELET COUNT 270 10^3/uL (150-450); RED BLOOD COUNT 3.54 10^6/uL (4.35-5.55); RED CELL DISTRIBUTION WIDTH 13.3 % (11.5-14.0); SEGMENTED NEUTROPHILS % (AUTO) 72.5 % (42-78); TOTAL CELLS COUNTED % (AUTO) 100 %; WHITE BLOOD COUNT 9.4 10^3/uL (4.0-10.5)
[2018-02-21 07:37] LABS: HEMOGLOBIN 11.1 g/dL (13.5-17.0)
[2018-02-21 07:38] LABS: ALBUMIN 3.1 g/dL (3.5-5.0); CHOLESTEROL 118.59 mg/dL (0-200); GLUCOSE 120 mg/dL (75-110); POTASSIUM 4.2 mmol/L (3.6-5.0); TOTAL PROTEIN 5.5 g/dL (6.3-8.2); TRIGLYCERIDES 104 mg/dL (<150)
[2018-02-21 07:50] LABS: CREATINE KINASE MB 1.35 ng/mL (<4.55)
[2018-02-21 07:53] LABS: ALANINE AMINOTRANSFERASE 29 U/L (21-72); ALKALINE PHOSPHATASE 71 U/L (38-126); ASPARTATE AMINO TRANSFERASE 14 U/L (17-59); BILIRUBIN,DIRECT 0.1 mg/dL (0.0-0.4); BILIRUBIN,TOTAL 0.5 mg/dL (0.2-1.3); BLOOD UREA NITROGEN 13 mg/dL (7-20); CALCIUM 8.6 mg/dL (8.4-10.2); CREATINE KINASE 32 U/L (55-170)
[2018-02-21 07:58] LABS: CARBON DIOXIDE 25 mmol/L (22-30); CHLORIDE 108 mmol/L (98-107); SODIUM 138.9 mmol/L (137-145); TROPONIN I < 0.012 ng/mL
[2018-02-21 08:02] LABS: ANION GAP 6 (5-19)
[2018-02-21] MEDS: NORMAL SALINE 1000 ML 1,000 ML IV PRN ×2 (08:12→18:18)
[2018-02-21 08:38] LABS: DIRECT LDL 79 mg/dL (<100)
[2018-02-21] MEDS: INSULIN LISPRO 100 UNIT/ML 3 ML VIAL SUBCUT PRN ×3 (12:48→22:06)
[2018-02-21] MEDS ORDERED: MAG HYDROX/AL HYDROX/SIMETH SUSP 30 ML UDCUP PO PRN (16:56)
[2018-02-21] MEDS: ENOXAPARIN SODIUM INJ 40 MG/0.4 ML DISP.SYRIN SUBCUT SCH (17:12)
--- NOTE | 2018-02-21 19:02 | PDOC H&P ---
History of Present Illness Admission Date/PCP: 02/20/18 16:05 Patient complains of: Nausea, vomiting, diarrhea History of Present Illness: WODOY TORRES JR is a 42 year old male patient known to my practice who presented to the ED with above complaints that started on the morning of the day of presentation. He reported associated abdominal discomfort with cramping pain.. No blood in his stool. Denied consumption of unusual or rewarm food. Admitted to egg breakfast. he reported that one of his children have similar symptoms. no fever but there was associated chills. he experienced elevated blood glucose at home which he reported at 397mg/dL on his home blood glucose meter. He claimed associated generalized malaise and weakness. His initial evaluation in the ED was significant for hypotension and elevated blood glucose level. He was advised hospitalization for further evaluation and management. his morbidities include Diabetes Mellitus Type 1, Hypertension, Hyperlipidemia, and Depression. Past Medical History Cardiac Medical History: Reports: Hyperlipidema, Hypertension Endocrine Medical History: Reports: Diabetes Mellitus Type 1, Diabetes Mellitus Type 2 Psychiatric Medical History: Reports: Depression Past Surgical History Past Surgical History: Reports: Appendectomy, Orthopedic Surgery - left arm, Tonsillectomy Social History Lives with: Family Smoking Status: Never Smoker Frequency of Alcohol Use: None Hx Recreational Drug Use: No Hx Prescription Drug Abuse: No - Advance Directive Resuscitation Status: Full Code Family History Family History: Reviewed & Not Pertinent Parental Family History Reviewed: Yes Children Family History Reviewed: Yes Sibling(s) Family History Reviewed.: Yes Medication/Allergy Home Medications: Venlafaxine HCl [Effexor] 50 mg PO QHS 07/02/16 Aspirin [Ecotrin 81 mg EC Tablet] 81 mg PO DAILY #30 tabec 07/05/16 Atorvastatin Calcium [Lipitor 80 mg Tablet] 80 mg PO QHS 02/20/18 Lisinopril [Zestril] 20 mg PO QHS 02/20/18 Multivit-Min/Folic/Vit K/Lycop [One-A-Day Men's 50+ Tablet] 1 each PO DAILY 02/20/18 Omeprazole 40 mg PO QHS 02/20/18 Trazodone HCl [Desyrel 50 mg Tablet] 50 mg PO QHS 02/20/18 Gabapentin [Neurontin 300 mg Capsule] 300 mg PO Q8 02/21/18 Insulin Glargine,Hum.rec.anlog [Lantus Insulin 100 Unit/mL] 7 units SQ QPM 02/21/18 Insulin Glargine,Hum.rec.anlog [Lantus] 27 unit SQ QAM 02/21/18 Allergies/Adverse Reactions: Influenza A (H1N1)Vaccine 2008 * [Influenza A (H1N1)Vaccine 2008] Allergy (Verified 02/20/18 12:49) Review of Systems Constitutional: PRESENT: chills, weakness Eyes: ABSENT: visual disturbances Ears: ABSENT: hearing changes Nose, Mouth, and Throat: PRESENT: mouth pain Cardiovascular: ABSENT: chest pain, dyspnea on exertion, edema, orthropnea, palpitations Respiratory: ABSENT: cough, hemoptysis Gastrointestinal: PRESENT: abdominal pain, diarrhea, nausea, vomiting Genitourinary: ABSENT: dysuria, hematuria Musculoskeletal: PRESENT: deformity Integumentary: ABSENT: rash, wounds Neurological: ABSENT: abnormal gait, abnormal speech, confusion, dizziness, focal weakness, syncope Psychiatric: ABSENT: anxiety, depression, homidical ideation, suicidal ideation Endocrine: ABSENT: cold intolerance, heat intolerance, polydipsia, polyuria Physical Exam Vital Signs: Temp Pulse Resp BP Pulse Ox 98.1 F 78 14 132/66 H 100 02/21/18 17:00 02/21/18 17:00 02/21/18 17:00 02/21/18 17:00 02/21/18 17:00 Intake & Output 02/20/18 02/21/18 02/22/18 06:59 06:59 06:59 Intake Total 2612 1459 Output Total 400 Balance 2212 1459 Weight 66.9 kg Results Laboratory Results: 02/21/18 06:59 02/21/18 06:59 02/20/18 02/20/18 02/20/18 18:48 18:48 19:40 WBC RBC Hgb Hct MCV MCH MCHC RDW Plt Count Seg Neutrophils % Lymphocytes % Monocytes % Eosinophils % Basophils % Absolute Neutrophils Absolute Lymphocytes Absolute Monocytes Absolute Eosinophils Absolute Basophils Sodium Potassium Chloride Carbon Dioxide Anion Gap BUN Creatinine Est GFR ( Amer) Est GFR (Non-Af Amer) Glucose Calcium Phosphorus 4.1 Magnesium 2.2 Total Bilirubin AST ALT Alkaline Phosphatase Total Protein Albumin Triglycerides Cholesterol LDL Cholesterol Direct VLDL Cholesterol HDL Cholesterol Amylase 57 Lipase 56.3 TSH 0.61 Free T4 0.97 Urine Color YELLOW Urine Appearance CLEAR Urine pH 5.0 Ur Specific [place] 1.014 Urine Protein NEGATIVE Urine Glucose (UA) >=500 H Urine Ketones NEGATIVE Urine Blood NEGATIVE Urine Nitrite NEGATIVE Ur Leukocyte Esterase NEGATIVE Urine WBC (Auto) 3 Urine RBC (Auto) 0 02/21/18 02/21/18 06:59 06:59 WBC 9.4 RBC 3.54 L Hgb 11.1 L D Hct 32.4 L MCV 92 MCH 31.4 MCHC 34.2 RDW 13.3 Plt Count 270 Seg Neutrophils % 72.5 Lymphocytes % 17.8 Monocytes % 6.5 Eosinophils % 2.6 Basophils % 0.6 Absolute Neutrophils 6.8 Absolute Lymphocytes 1.7 Absolute Monocytes 0.6 Absolute Eosinophils 0.2 Absolute Basophils 0.1 Sodium 138.9 Potassium 4.2 Chloride 108 H Carbon Dioxide 25 Anion Gap 6 BUN 13 Creatinine 0.67 Est GFR ( Amer) > 60 Est GFR (Non-Af Amer) > 60 Glucose 120 H Calcium 8.6 Phosphorus Magnesium Total Bilirubin 0.5 AST 14 L ALT 29 Alkaline Phosphatase 71 Total Protein 5.5 L Albumin 3.1 L Triglycerides 104 Cholesterol 118.59 LDL Cholesterol Direct 79 VLDL Cholesterol 21.0 HDL Cholesterol 31 L Amylase Lipase TSH Free T4 Urine Color Urine Appearance Urine pH Ur Specific [place] Urine Protein Urine Glucose (UA) Urine Ketones Urine Blood Urine Nitrite Ur Leukocyte Esterase Urine WBC (Auto) Urine RBC (Auto) 02/20/18 02/20/18 02/20/18 13:04 13:09 18:48 Creatine Kinase 42 L 36 L CK-MB (CK-2) 1.12 Troponin I < 0.012 02/20/18 02/21/18 02/21/18 18:48 00:52 00:52 Creatine Kinase 29 L CK-MB (CK-2) 1.20 1.35 Troponin I < 0.012 < 0.012 02/21/18 02/21/18 06:59 06:59 Creatine Kinase 32 L CK-MB (CK-2) 1.35 Troponin I < 0.012 Impressions: Chest X-Ray 02/20/18 13:01 IMPRESSION: NO ACUTE RADIOGRAPHIC FINDING IN THE CHEST. Assessment & Plan - Diagnosis (1) Gastroenteritis, acute Is this a current diagnosis for this admission?: Yes Plan: Maintain on IV fluid support with symptoms management. Most likely due to viral infection. (3) Hypotension Qualifiers: Hypotension type: unspecified hypotension type Qualified Code(s): I95.9 - Hypotension, unspecified Is this a current diagnosis for this admission?: Yes Plan: Continue IV fluid support. Instructed on fall precautions. (4) Diabetes mellitus type 1 with complications Is this a current diagnosis for this admission?: Yes Plan: Continue Insulin sliding sale coverage with his preadmission regimen. - Time Time Spent: 50 to 70 Minutes Medications reviewed and adjusted accordingly: Yes Anticipated discharge: Home Within: Other - Inpatient Certification Based on my medical assessment, after consideration of the patient's comorbidities, presenting symptoms, or acuity I expect that the services needed warrant INPATIENT care.: Yes I certify that my determination is in accordance with my understanding of Medicare's requirements for reasonable and necessary INPATIENT services [42 CFR 412.3e].: Yes Medical Necessity: Need Close Monitoring Due to Risk of Patient Decompensation, Need For IV Fluids, Risk of Complication if Not Cared For in Hospital Post Hospital Care: D/C Communications Instructor Documentation - Plan Summary Plan Summary: See admitting attending physician orders as per outlined care plan.
[2018-02-21] MEDS: VENLAFAXINE HCL 25 MG TABLET PO SCH (21:52)
[2018-02-21] MEDS: ATORVASTATIN CALCIUM 80 MG TABLET PO SCH (21:52)
[2018-02-21] MEDS: TRAZODONE HCL 50 MG TABLET PO SCH (21:52)
[2018-02-21] MEDS: LISINOPRIL 10 MG TABLET PO SCH (21:53)
[2018-02-22] MEDS: LANSOPRAZOLE 30 MG TAB.RAP.DR PO SCH (06:01)
[2018-02-22 07:09] LABS: ABSOLUTE BASOPHILS # (AUTO) 0.1 10^3/uL (0.0-0.2); ABSOLUTE EOSINOPHILS # (AUTO) 0.1 10^3/uL (0.0-0.6); ABSOLUTE LYMPHOCYTES (AUTO) 2.2 10^3/uL (0.5-4.7); ABSOLUTE MONOCYTES (AUTO) 0.8 10^3/uL (0.1-1.4); ABSOLUTE NEUT (AUTO) 6.3 10^3/uL (1.7-8.2); BASOPHILS % (AUTO) 0.7 % (0-2); EOSINOPHILS % (AUTO) 1.4 % (0-6); HEMATOCRIT 32.5 % (37.9-51.0); HEMOGLOBIN 11.3 g/dL (13.5-17.0); LYMPHOCYTES % (AUTO) 23.2 % (13-45); MEAN CORPUSCULAR HGB CONC 34.7 g/dL (32.0-36.0); MEAN CORPUSCULAR VOLUME 92 fl (80-97); MONOCYTES % (AUTO) 8.4 % (3-13); PLATELET COUNT 243 10^3/uL (150-450); RED BLOOD COUNT 3.52 10^6/uL (4.35-5.55); RED CELL DISTRIBUTION WIDTH 13.2 % (11.5-14.0); SEGMENTED NEUTROPHILS % (AUTO) 66.3 % (42-78); TOTAL CELLS COUNTED % (AUTO) 100 %; WHITE BLOOD COUNT 9.5 10^3/uL (4.0-10.5)
[2018-02-22 07:29] LABS: ALANINE AMINOTRANSFERASE 29 U/L (21-72); ALBUMIN 3.2 g/dL (3.5-5.0); ALKALINE PHOSPHATASE 78 U/L (38-126); ANION GAP 8 (5-19); ASPARTATE AMINO TRANSFERASE 17 U/L (17-59); BILIRUBIN,DIRECT 0.2 mg/dL (0.0-0.4); BILIRUBIN,TOTAL 0.6 mg/dL (0.2-1.3); BLOOD UREA NITROGEN 9 mg/dL (7-20); CALCIUM 8.9 mg/dL (8.4-10.2); CARBON DIOXIDE 22 mmol/L (22-30); CHLORIDE 107 mmol/L (98-107); GLUCOSE 243 mg/dL (75-110); POTASSIUM 4.3 mmol/L (3.6-5.0); SODIUM 137.3 mmol/L (137-145); TOTAL PROTEIN 5.8 g/dL (6.3-8.2)
[2018-02-22] MEDS: INSULIN LISPRO 100 UNIT/ML 3 ML VIAL SUBCUT PRN ×4 (09:02→22:38)
[2018-02-22] MEDS: NORMAL SALINE 1000 ML 1,000 ML IV PRN (16:48)
[2018-02-22] MEDS: ENOXAPARIN SODIUM INJ 40 MG/0.4 ML DISP.SYRIN SUBCUT SCH (18:22)
--- NOTE | 2018-02-22 19:20 | PDOC PROGRESS REPORT ---
Subjective Progress Note for:: 02/22/18 Subjective:: Patient continue to have elevated blood glucose level per POC accuchek monitoring. He denied any nausea, vomiting, or diarrhea so far today. No abdominal pain. His back pain is relieved by KPAD application. No chest pain or difficulty with breathing. Reason For Visit: UNCONTROLLED DIABETES MELLITUS,? VIRAL SYNDROME Physical Exam Vital Signs: Temp Pulse Resp BP Pulse Ox 98.4 F 80 18 101/62 99 02/22/18 11:34 02/22/18 11:34 02/22/18 11:34 02/22/18 11:34 02/22/18 11:34 Intake & Output 02/21/18 02/22/18 02/23/18 06:59 06:59 06:59 Intake Total 2612 3347 Output Total 400 725 Balance 2212 2622 Weight 66.9 kg 66.7 kg General appearance: PRESENT: no acute distress Head exam: PRESENT: atraumatic, normocephalic Eye exam: PRESENT: conjunctiva pink, EOMI, PERRLA. ABSENT: scleral icterus Ear exam: PRESENT: normal external ear exam Mouth exam: PRESENT: moist Respiratory exam: PRESENT: clear to auscultation dianne Cardiovascular exam: PRESENT: RRR. ABSENT: diastolic murmur, rubs, systolic murmur Vascular exam: PRESENT: normal capillary refill. ABSENT: pallor GI/Abdominal exam: PRESENT: normal bowel sounds, soft. ABSENT: distended, guarding, mass, organolmegaly, rebound, tenderness Extremities exam: ABSENT: pedal edema Musculoskeletal exam: ABSENT: tenderness Neurological exam: PRESENT: alert, awake, oriented to person, oriented to place, oriented to time, oriented to situation, CN II-XII grossly intact. ABSENT: motor sensory deficit Psychiatric exam: PRESENT: appropriate affect, normal mood. ABSENT: homicidal ideation, suicidal ideation Skin exam: PRESENT: dry, warm Results Laboratory Results: 02/22/18 06:10 02/22/18 06:10 02/22/18 02/22/18 06:10 06:10 WBC 9.5 RBC 3.52 L Hgb 11.3 L Hct 32.5 L MCV 92 MCH 32.0 MCHC 34.7 RDW 13.2 Plt Count 243 Seg Neutrophils % 66.3 Lymphocytes % 23.2 Monocytes % 8.4 Eosinophils % 1.4 Basophils % 0.7 Absolute Neutrophils 6.3 Absolute Lymphocytes 2.2 Absolute Monocytes 0.8 Absolute Eosinophils 0.1 Absolute Basophils 0.1 Sodium 137.3 Potassium 4.3 Chloride 107 Carbon Dioxide 22 Anion Gap 8 BUN 9 Creatinine 0.59 Est GFR ( Amer) > 60 Est GFR (Non-Af Amer) > 60 Glucose 243 H Calcium 8.9 Total Bilirubin 0.6 AST 17 ALT 29 Alkaline Phosphatase 78 Total Protein 5.8 L Albumin 3.2 L 02/20/18 19:40 Clean Catch Midstream Urine Culture - Final NO GROWTH 2 DAYS 02/20/18 02/20/18 02/20/18 13:04 13:09 18:48 Creatine Kinase 42 L 36 L CK-MB (CK-2) 1.12 Troponin I < 0.012 02/20/18 02/21/18 02/21/18 18:48 00:52 00:52 Creatine Kinase 29 L CK-MB (CK-2) 1.20 1.35 Troponin I < 0.012 < 0.012 02/21/18 02/21/18 06:59 06:59 Creatine Kinase 32 L CK-MB (CK-2) 1.35 Troponin I < 0.012 Impressions: Chest X-Ray 02/20/18 13:01 IMPRESSION: NO ACUTE RADIOGRAPHIC FINDING IN THE CHEST. Assessment & Plan - Diagnosis (1) Gastroenteritis, acute Is this a current diagnosis for this admission?: Yes (3) Hypotension Qualifiers: Hypotension type: unspecified hypotension type Qualified Code(s): I95.9 - Hypotension, unspecified Is this a current diagnosis for this admission?: Yes (4) Diabetes mellitus type 1 with complications Is this a current diagnosis for this admission?: Yes - Time Time Spent with patient: 25-34 minutes Medications reviewed and adjusted accordingly: Yes Anticipated discharge: Home Within: Other - Inpatient Certification Based on my medical assessment, after consideration of the patient's comorbid ities, presenting symptoms, or acuity I expect that the services needed warrant INPATIENT care.: Yes I certify that my determination is in accordance with my understanding of Medicare's requirements for reasonable and necessary INPATIENT services [42 CFR 412.3e].: Yes Medical Necessity: Need Close Monitoring Due to Risk of Patient Decompensation, Need For IV Fluids, Need For Continuous Telemetry Monitoring, Risk of Complication if Not Cared For in Hospital Post Hospital Care: D/C Certified Court Interpreter Documentation - Plan Summary Plan Summary: Restart on preadmission Lantus insulin regimen. Encouraged adequate oral intake. Patient was allowed to use KPAD for lower back pain and reported improvement.
[2018-02-22] MEDS ORDERED: INSULIN GLARGINE,HUM.REC.ANLOG 300 UNIT/3 ML INSULN.PEN SUBCUT SCH (19:30)
[2018-02-22] MEDS: TRAZODONE HCL 50 MG TABLET PO SCH (22:39)
[2018-02-22] MEDS: VENLAFAXINE HCL 25 MG TABLET PO SCH (22:39)
[2018-02-22] MEDS: LISINOPRIL 10 MG TABLET PO SCH (22:40)
[2018-02-22] MEDS: ATORVASTATIN CALCIUM 80 MG TABLET PO SCH (22:40)
[2018-02-22] MEDS: GABAPENTIN 300 MG CAPSULE PO SCH (22:40)
[2018-02-23 05:07] LABS: ABSOLUTE BASOPHILS # (AUTO) 0.1 10^3/uL (0.0-0.2); ABSOLUTE EOSINOPHILS # (AUTO) 0.1 10^3/uL (0.0-0.6); ABSOLUTE LYMPHOCYTES (AUTO) 2.7 10^3/uL (0.5-4.7); ABSOLUTE MONOCYTES (AUTO) 0.6 10^3/uL (0.1-1.4); BASOPHILS % (AUTO) 1.1 % (0-2); EOSINOPHILS % (AUTO) 1.8 % (0-6); LYMPHOCYTES % (AUTO) 41.5 % (13-45); MEAN CORPUSCULAR HEMOGLOBIN 31.6 pg (27.0-33.4); MEAN CORPUSCULAR HGB CONC 34.5 g/dL (32.0-36.0); MEAN CORPUSCULAR VOLUME 92 fl (80-97); MONOCYTES % (AUTO) 9.3 % (3-13); PLATELET COUNT 253 10^3/uL (150-450); RED BLOOD COUNT 3.49 10^6/uL (4.35-5.55); RED CELL DISTRIBUTION WIDTH 13.4 % (11.5-14.0); SEGMENTED NEUTROPHILS % (AUTO) 46.3 % (42-78); TOTAL CELLS COUNTED % (AUTO) 100 %; WHITE BLOOD COUNT 6.6 10^3/uL (4.0-10.5)
[2018-02-23] MEDS: GABAPENTIN 300 MG CAPSULE PO SCH ×2 (05:12→14:08)
[2018-02-23] MEDS: LANSOPRAZOLE 30 MG TAB.RAP.DR PO SCH (05:12)
[2018-02-23 06:01] LABS: ALANINE AMINOTRANSFERASE 27 U/L (21-72); ALBUMIN 3.1 g/dL (3.5-5.0); ALKALINE PHOSPHATASE 73 U/L (38-126); ANION GAP 8 (5-19); ASPARTATE AMINO TRANSFERASE 15 U/L (17-59); BILIRUBIN,DIRECT 0.2 mg/dL (0.0-0.4); BILIRUBIN,TOTAL 0.8 mg/dL (0.2-1.3); BLOOD UREA NITROGEN 13 mg/dL (7-20); CALCIUM 9.1 mg/dL (8.4-10.2); CARBON DIOXIDE 24 mmol/L (22-30); CHLORIDE 108 mmol/L (98-107); GLUCOSE 199 mg/dL (75-110); POTASSIUM 3.9 mmol/L (3.6-5.0); SODIUM 140.4 mmol/L (137-145); TOTAL PROTEIN 5.7 g/dL (6.3-8.2)
[2018-02-23] MEDS ORDERED: INSULIN GLARGINE,HUM.REC.ANLOG 1,000 UNIT/10 ML UNIT SUBCUT SCH (08:00)
[2018-02-23] MEDS: INSULIN LISPRO 100 UNIT/ML 3 ML VIAL SUBCUT PRN ×2 (08:12→13:01)
[2018-02-23] MEDS ORDERED: ASPIRIN 81 MG TABLET, ENT COATED PO SCH (10:00)
[2018-02-23] MEDS ORDERED: MULTIVITAMIN TABLET PO SCH (10:00)
[2018-02-23] MEDS: NORMAL SALINE 1000 ML 1,000 ML IV PRN (10:15)
[2018-02-23] MEDS: ENOXAPARIN SODIUM INJ 40 MG/0.4 ML DISP.SYRIN SUBCUT SCH (17:26)
--- NOTE | 2018-02-23 17:34 | PDOC DISCHARGE SUMMARY ---
General - Admit/Disc Date/PCP Admission Date/Primary Care Provider: 02/20/18 16:05 Discharge Date: 02/23/18 - Discharge Diagnosis (1) Gastroenteritis, acute Is this a current diagnosis for this admission?: Yes (3) Hypotension Is this a current diagnosis for this admission?: Yes (4) Diabetes mellitus type 1 with complications Is this a current diagnosis for this admission?: Yes - Additional Information Resuscitation Status: Full Code Home Medications: Venlafaxine HCl [Effexor] 50 mg PO QHS 07/02/16 Aspirin [Ecotrin 81 mg EC Tablet] 81 mg PO DAILY #30 tabec 07/05/16 Atorvastatin Calcium [Lipitor 80 mg Tablet] 80 mg PO QHS 02/20/18 Lisinopril [Zestril] 20 mg PO QHS 02/20/18 Multivit-Min/Folic/Vit K/Lycop [One-A-Day Men's 50 Plus Tablet] 1 each PO DAILY 02/20/18 Omeprazole 40 mg PO QHS 02/20/18 Trazodone HCl [Desyrel 50 mg Tablet] 50 mg PO QHS 02/20/18 Gabapentin [Neurontin 300 mg Capsule] 300 mg PO Q8 02/21/18 Insulin Glargine,Hum.rec.anlog [Lantus Insulin 100 Unit/mL] 7 units SQ QPM 02/21/18 Insulin Glargine,Hum.rec.anlog [Lantus] 27 unit SQ QAM 02/21/18 Insulin Lispro [Humalog Insulin (Lispro) 100 unit/mL] 0 - 12 unit SUBCUT ACHSP PRN unit 02/23/18 History of Present Illness Patient complains of: Nausea, vomiting, diarrhea History of Present Illness: WOODY TORRES JR is a 42 year old male patient known to my practice who presented to the ED with above complaints that started on the morning of the day of presentation. He reported associated abdominal discomfort with cramping pain.. No blood in his stool. Denied consumption of unusual or rewarm food. Admitted to egg breakfast. he reported that one of his children have similar symptoms. no fever but there was associated chills. he experienced elevated blood glucose at home which he reported at 397mg/dL on his home blood glucose meter. He claimed associated generalized malaise and weakness. His initial evaluation in the ED was significant for hypotension and elevated blood glucose level. He was advised hospitalization for further evaluation and management. his morbidities include Diabetes Mellitus Type 1, Hypertension, Hyperlipidemia, and Depression. Hospital Course Hospital Course: Patient was managed with IV fluid support and Insulin therapy with improvement in his hyperglycemia. His nausea, vomiting and diarrhea did resolved and mostly due to viral gastroenteritis in view of similar events in his son at home. He is currently restarted on his preadmission insulin therapy regimen and I did emphasized dietary compliance as well as diabetic mellitus self management at home. He is agreeable to discharge home today and follow up in the office as instructed upon discharge. Physical Exam Vital Signs: Temp Pulse Resp BP Pulse Ox 97.9 F 71 14 128/64 H 97 02/23/18 15:04 02/23/18 15:04 02/23/18 15:04 02/23/18 15:04 02/23/18 15:04 Intake & Output 02/22/18 02/23/18 02/24/18 06:59 06:59 06:59 Intake Total 3347 2294 400 Output Total 725 3200 960 Balance 2622 -906 -560 Weight 66.7 kg 67.2 kg Physical Exam: General appearance: PRESENT: no acute distress Head exam: PRESENT: atraumatic, normocephalic Eye exam: PRESENT: conjunctiva pink, EOMI, PERRLA. ABSENT: pallor, scleral icterus Ear exam: PRESENT: normal external ear exam Mouth exam: PRESENT: moist Respiratory exam: PRESENT: clear to auscultation dianne Cardiovascular exam: PRESENT: RRR. ABSENT: diastolic murmur, rubs, systolic murmur GI/Abdominal exam: PRESENT: normal bowel sounds, soft. ABSENT: distended, guarding, mass, organomegaly, rebound, tenderness Extremities exam: ABSENT: pedal edema Musculoskeletal exam: ABSENT: tenderness Neurological exam: PRESENT: alert, awake, oriented to person, oriented to place, oriented to time, oriented to situation, CN II-XII grossly intact. ABSENT: motor sensory deficit Psychiatric exam: PRESENT: appropriate affect, normal mood. ABSENT: homicidal ideation, suicidal ideation Skin exam: PRESENT: dry, warm Results Laboratory Results: 02/23/18 04:23 02/23/18 04:23 02/23/18 02/23/18 04:23 04:23 WBC 6.6 RBC 3.49 L Hgb 11.0 L Hct 32.0 L MCV 92 MCH 31.6 MCHC 34.5 RDW 13.4 Plt Count 253 Seg Neutrophils % 46.3 Lymphocytes % 41.5 Monocytes % 9.3 Eosinophils % 1.8 Basophils % 1.1 Absolute Neutrophils 3.0 Absolute Lymphocytes 2.7 Absolute Monocytes 0.6 Absolute Eosinophils 0.1 Absolute Basophils 0.1 Sodium 140.4 Potassium 3.9 Chloride 108 H Carbon Dioxide 24 Anion Gap 8 BUN 13 Creatinine 0.66 Est GFR ( Amer) > 60 Est GFR (Non-Af Amer) > 60 Glucose 199 H Calcium 9.1 Total Bilirubin 0.8 AST 15 L ALT 27 Alkaline Phosphatase 73 Total Protein 5.7 L Albumin 3.1 L 02/20/18 02/20/18 02/20/18 13:04 13:09 18:48 Creatine Kinase 42 L 36 L CK-MB (CK-2) 1.12 Troponin I < 0.012 02/20/18 02/21/18 02/21/18 18:48 00:52 00:52 Creatine Kinase 29 L CK-MB (CK-2) 1.20 1.35 Troponin I < 0.012 < 0.012 02/21/18 02/21/18 06:59 06:59 Creatine Kinase 32 L CK-MB (CK-2) 1.35 Troponin I < 0.012 Impressions: Chest X-Ray 02/20/18 13:01 IMPRESSION: NO ACUTE RADIOGRAPHIC FINDING IN THE CHEST. Qualifiers - * PATIENT BEING DISCHARGED WITH ANY OF THE FOLLOWING DIAGNOSIS: No Plan Discharge Plan: D/C home today. Follow up in the office as instructed upon discharge.
[2018-02-23] MEDS ORDERED: INSULIN GLARGINE,HUM.REC.ANLOG 300 UNIT/3 ML INSULN.PEN SUBCUT SCH (18:00)
[2018-02-23 18:23] VITALS: BP 132/66
[2018-02-24] MEDS ORDERED: INSULIN GLARGINE,HUM.REC.ANLOG 300 UNIT/3 ML INSULN.PEN SUBCUT SCH (08:00)
== END 2018-02-23 18:49 | disposition home or self-care (01) | DRG 392 ==
LOC: ER 12:47 → EH 16:05 → 4N 17:01
PROVIDERS: ADMIT Internal Medicine; ATTEND Internal Medicine Geriatric Medicine
DX: A08.4 Viral intestinal infection, unspecified (principal); I95.9 Hypotension, unspecified; E10.65 Type 1 diabetes mellitus with hyperglycemia; I10 Essential (primary) hypertension; E78.5 Hyperlipidemia, unspecified; F32.9 Major depressive disorder, single episode, unspecified; Z79.82 Long term (current) use of aspirin; Z79.4 Long term (current) use of insulin
CPT/HCPCS: 36415; 36600; 71045; 80048; 80053; 80061; 80076; 80307; 81001; 82150; 82550; 82553; 82803; 82962; 83036; 83605; 83690; 83735; 84100; 84439; 84443; 84484; 85025; 85610; 85730; 87040; 87086; 93005; 93010; 96361; 96374; 96375; 99291; J1335; J1650; J1815; J2270; J2405; J3490; J7030

== ENCOUNTER 2018-07-13 08:29 | Emergency (ER) | payer BC, MEDICARE ==
--- NOTE | 2018-07-13 09:40 | ER Document Report ---
HPI - HPI Patient complains to provider of: Rash Time Seen by Provider: 07/13/18 09:06 Onset: Other - 2 Weeks Onset/Duration: Persistent Quality of pain: Other - itchy Pain Level: 3 Context: Patient presents emergency department with complaints of rash and itching to his lower extremities that goes up to his buttocks. Patient reports rash for the past 2 weeks. He has been applying calamine lotion without relief of symptoms. He does have an appointment with his primary care provider in next week but is unable to wait due to the itching. He reports he lives in the [facility] upon clarification patient reports his house is in the [facility] and he is outside a lot. Patient is unsure if he came in contact with poison mary anne. Reports no other family members itching. Denies other symptoms such as fever vomiting diarrhea. Associated Symptoms: None Exacerbated by: Denies Relieved by: Denies Similar symptoms previously: No Recently seen / treated by doctor: No - REPRODUCTIVE Reproductive: DENIES: : Past Medical History - General Information source: Patient - Social History Smoking Status: Unknown if Ever Smoked Cigarette use (# per day): No Frequency of alcohol use: None Drug Abuse: None Lives with: Family Family History: Reviewed & Not Pertinent Patient has suicidal ideation: No Patient has homicidal ideation: No - Past Medical History Cardiac Medical History: Reports: Hx Hypercholesterolemia, Hx Hypertension Neurological Medical History: Denies: Hx Cerebrovascular Accident Endocrine Medical History: Reports: Hx Diabetes Mellitus Type 1, Hx Diabetes Mellitus Type 2 Renal/ Medical History: Denies: Hx Peritoneal Dialysis Psychiatric Medical History: Reports: Hx Depression Past Surgical History: Reports: Hx Appendectomy, Hx Orthopedic Surgery - left arm, Hx Tonsillectomy - Immunizations Hx Diphtheria, Pertussis, Tetanus Vaccination: Yes Vertical Provider Document - CONSTITUTIONAL Agree With Documented VS: Yes Exam Limitations: No Limitations General Appearance: WD/WN, No Apparent Distress - INFECTION CONTROL TRAVEL OUTSIDE OF THE [place] IN LAST 30 DAYS: No - HEENT HEENT: Atraumatic, Normocephalic - NECK Neck: Supple - RESPIRATORY Respiratory: No Respiratory Distress - CARDIOVASCULAR Cardiovascular: Regular Rate - BACK Back: Normal Inspection - MUSCULOSKELETAL/EXTREMETIES Musculoskeletal/Extremeties: MAEW, FROM, Non-Tender - NEURO Level of Consciousness: Awake, Alert, Appropriate Motor/Sensory: No Motor Deficit - DERM Integumentary: Rash - pruitic erythemic rash with no open wounds to bilateral lower legs, some to feet, no rash noted to trunk, upper extremities, face. appears to poison mary anne rash, no swelling/warmth/draining) Course - Re-evaluation Re-evalutation: 07/13/18 10:47 Patient was instructed on plan of care avoid hot showers avoid itching Vistaril for the itching do not take Benadryl also. Continue with Caladryl, Burow solution Patient verbalized understanding to all instructions. He was also instructed to return here if it looks like the skin was getting infected. Discussed redness swelling warmth pain as symptoms. He verbalized understanding Dictation of this chart was performed using voice recognition software; therefore, there may be some unintended grammatical errors. - Vital Signs Vital signs: Temp Pulse Resp BP Pulse Ox 97.9 F 86 16 137/75 H 100 07/13/18 08:34 07/13/18 08:34 07/13/18 08:34 07/13/18 08:34 07/13/18 08:34 Discharge - Discharge Clinical Impression: Poison mary anne Disposition: HOME, SELF-CARE Instructions: Antihistamines ([facility]), Poison Mary Anne ([facility]) Additional Instructions: *You have been treated for rash and itching to your lower extremities, poison mary anne *Take medication as prescribed for itching *Avoid hot showers avoid itching *continue to apply calamine lotion *Monitor your skin for signs of infection such as pain, redness, swelling, warmth *Wash the site twice daily as discussed *Follow up with your primary care provider July 26 as scheduled *Return to ED for signs of infection, worsening condition, changes, needs Prescriptions: Hydroxyzine Pamoate [Vistaril 25 mg Capsule] 25 mg PO TID #30 capsule Referrals: BRYSON SANCHEZ MD [Primary Care Provider] - 07/26/18
[2018-07-13 09:48] VITALS: BP 106/61
== END 2018-07-13 09:53 | disposition home or self-care (01) ==
LOC: ER 08:29
DX: L23.7 Allergic contact dermatitis due to plants, except food (principal); E78.00 Pure hypercholesterolemia, unspecified; I10 Essential (primary) hypertension; E11.9 Type 2 diabetes mellitus without complications
CPT/HCPCS: 99282

== ENCOUNTER → 2018-08-07 | Outpatient (CLI) | payer BC, MEDICARE ==
[2018-08-07 11:04] LABS: ABSOLUTE BASOPHILS # (AUTO) 0.1 10^3/uL (0.0-0.2); ABSOLUTE LYMPHOCYTES (AUTO) 1.4 10^3/uL (0.5-4.7); ABSOLUTE MONOCYTES (AUTO) 0.4 10^3/uL (0.1-1.4); ABSOLUTE NEUT (AUTO) 6.4 10^3/uL (1.7-8.2); BASOPHILS % (AUTO) 0.8 % (0-2); EOSINOPHILS % (AUTO) 0.3 % (0-6); HEMOGLOBIN 12.8 g/dL (13.5-17.0); LYMPHOCYTES % (AUTO) 17.2 % (13-45); MEAN CORPUSCULAR HEMOGLOBIN 31.3 pg (27.0-33.4); MEAN CORPUSCULAR HGB CONC 33.7 g/dL (32.0-36.0); MEAN CORPUSCULAR VOLUME 93 fl (80-97); MONOCYTES % (AUTO) 4.6 % (3-13); PLATELET COUNT 349 10^3/uL (150-450); RED BLOOD COUNT 4.09 10^6/uL (4.35-5.55); RED CELL DISTRIBUTION WIDTH 13.5 % (11.5-14.0); SEGMENTED NEUTROPHILS % (AUTO) 77.1 % (42-78); TOTAL CELLS COUNTED % (AUTO) 100 %; WHITE BLOOD COUNT 8.3 10^3/uL (4.0-10.5)
[2018-08-07 11:34] LABS: ALANINE AMINOTRANSFERASE 36 U/L (21-72); ALBUMIN 4.3 g/dL (3.5-5.0); ALKALINE PHOSPHATASE 109 U/L (38-126); ANION GAP 11 (5-19); ASPARTATE AMINO TRANSFERASE 23 U/L (17-59); BILIRUBIN,DIRECT 0.3 mg/dL (0.0-0.4); BILIRUBIN,TOTAL 0.7 mg/dL (0.2-1.3); BLOOD UREA NITROGEN 22 mg/dL (7-20); CALCIUM 9.7 mg/dL (8.4-10.2); CARBON DIOXIDE 29 mmol/L (22-30); CHLORIDE 96 mmol/L (98-107); GLUCOSE 306 mg/dL (75-110); POTASSIUM 4.7 mmol/L (3.6-5.0); SODIUM 135.7 mmol/L (137-145); TOTAL PROTEIN 7.5 g/dL (6.3-8.2)
[2018-08-07 11:44] LABS: C-REACTIVE PROTEIN < 5.0 mg/L (<10.0)
[2018-08-07 11:50] LABS: ERYTHROCYTE SEDIMENTATION RATE 29 mm/hr (0-15)
== END ==
LOC: WC 10:16
PROVIDERS: ATTEND Nurse Practitioner Family
DX: E11.621 Type 2 diabetes mellitus with foot ulcer (principal); L97.522 Non-pressure chronic ulcer of other part of left foot with fat layer exposed; L97.412 Non-pressure chronic ulcer of right heel and midfoot with fat layer exposed
CPT/HCPCS: 36415; 80053; 83036; 85025; 85652; 86140

== ENCOUNTER 2018-10-30 18:37 | Emergency (ER) | payer BC, MEDICARE, MEDICAID ==
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
[2018-10-30 19:34] LABS: ABSOLUTE BASOPHILS # (AUTO) 0.2 10^3/uL (0.0-0.2); ABSOLUTE EOSINOPHILS # (AUTO) 0.6 10^3/uL (0.0-0.6); ABSOLUTE LYMPHOCYTES (AUTO) 2.3 10^3/uL (0.5-4.7); ABSOLUTE MONOCYTES (AUTO) 1.1 10^3/uL (0.1-1.4); ABSOLUTE NEUT (AUTO) 10.4 10^3/uL (1.7-8.2); BASOPHILS % (AUTO) 1.1 % (0-2); HEMATOCRIT 38.8 % (37.9-51.0); HEMOGLOBIN 13.1 g/dL (13.5-17.0); LYMPHOCYTES % (AUTO) 15.7 % (13-45); MEAN CORPUSCULAR HEMOGLOBIN 30.7 pg (27.0-33.4); MEAN CORPUSCULAR HGB CONC 33.7 g/dL (32.0-36.0); MEAN CORPUSCULAR VOLUME 91 fl (80-97); MONOCYTES % (AUTO) 7.8 % (3-13); PLATELET COUNT 296 10^3/uL (150-450); RED BLOOD COUNT 4.25 10^6/uL (4.35-5.55); RED CELL DISTRIBUTION WIDTH 13.9 % (11.5-14.0); SEGMENTED NEUTROPHILS % (AUTO) 71.4 % (42-78); TOTAL CELLS COUNTED % (AUTO) 100 %; WHITE BLOOD COUNT 14.5 10^3/uL (4.0-10.5)
[2018-10-30 19:35] LABS: APPEARANCE,URINE CLEAR; BILIRUBIN,URINE NEGATIVE (NEGATIVE); COLOR,URINE YELLOW; GLUCOSE, URINE NEGATIVE (NEGATIVE); KETONES,URINE 20 mg/dL (NEGATIVE); LEUKOCYTE ESTERASE,URINE NEGATIVE (NEGATIVE); NITRITE,URINE NEGATIVE (NEGATIVE); PROTEIN,URINE NEGATIVE (NEGATIVE); URINE SPECIFIC GRAVITY 1.008; UROBILINOGEN,URINE NEGATIVE mg/dL (<2.0)
[2018-10-30 19:54] LABS: ALBUMIN 4.3 g/dL (3.5-5.0); ALKALINE PHOSPHATASE 96 U/L (38-126); ANION GAP 14 (5-19); ASPARTATE AMINO TRANSFERASE 35 U/L (17-59); BILIRUBIN,DIRECT 0.2 mg/dL (0.0-0.4); BLOOD UREA NITROGEN 17 mg/dL (7-20); CARBON DIOXIDE 23 mmol/L (22-30); CHLORIDE 100 mmol/L (98-107); GLUCOSE 220 mg/dL (75-110); POTASSIUM 4.5 mmol/L (3.6-5.0); TOTAL PROTEIN 7.2 g/dL (6.3-8.2)
--- NOTE | 2018-10-30 20:15 | ER Document Report ---
ED Head/Face/Scalp Injury - General Chief Complaint: High Blood Sugar Stated Complaint: BLOOD SUGAR PROBLEMS Time Seen by Provider: 10/30/18 20:15 Primary Care Provider: CATY DUBOSE GRADUATE ADVISOR, GRADUATE ADVISOR [NURSE PRACTITIONER] - Follow up as needed Mode of Arrival: Ambulatory Information source: Patient Notes: HISTORY OF PRESENT ILLNESS: Patient is a 42-year-old male with a past medical history of hypertension, diabetes, and self-reported history of stroke who presents with headache and dizziness after closed head injury prior to arrival. Patient reports that he was working on his mother's car using a crowbar when the crowbar slipped and hit him on the forehead. He denies loss of consciousness, denies ataxia, denies paresthesias of the extremities. Location: Forehead Onset: Prior to arrival Provocation: Movement Quality: Aching, throbbing Radiation: None Severity: Moderate to severe Timing: Persistent History of headaches: None Recent head injury: Yes, prior to arrival Vision changes: None Trouble walking: None Associated symptoms: None REVIEW OF SYSTEMS: CONSTITUTIONAL : Denies fever or chills, no sweats. Denies recent illness. EENT: Denies eye, ear, throat, or mouth pain or symptoms. Denies nasal or sinus congestion. CARDIOVASCULAR: Denies chest pain. RESPIRATORY: Denies cough, cold, or chest congestion. Denies shortness of breath, difficulty breathing, or wheezing. GASTROINTESTINAL: Denies abdominal pain. Denies nausea, vomiting, or diarrhea. Denies constipation. GENITOURINARY: Denies difficulty urinating, painful urination, burning, frequ ency, or blood in urine. FEMALE GENITOURINARY: Denies vaginal bleeding, abnormal or irregular periods. MUSCULOSKELETAL: Denies body aches. Denies neck or back pain or joint pain or swelling. SKIN: Denies rash or skin lesions. HEMATOLOGIC : Denies easy bruising or bleeding. LYMPHATIC: Denies swollen, enlarged glands. NEUROLOGICAL: Positive for headaches. Denies altered mental status or loss of consciousness. Denies weakness or paralysis or loss of use of either side. Denies problems with gait or speech. Denies sensory or motor loss. PSYCHIATRIC: Denies anxiety or stress or depression. All other systems reviewed and negative. PHYSICAL EXAMINATION: GENERAL: Well-appearing, well-nourished and in no acute distress. HEAD: Moderate subcutaneous hematoma to the right side of the forehead, normocephalic. No scalp deformity, depression, or crepitance. EYES: Pupils are 3 mm and equal/round/reactive to light, extraocular movements intact, sclera anicteric, conjunctiva are normal. ENT: Nares patent bilaterally, oropharynx clear without exudates or palatal petechia. Moist mucous membranes. No tonsil hypertrophy. NECK: Normal range of motion, supple without lymphadenopathy. LUNGS: Breath sounds present, equal, and clear to auscultation bilaterally. No wheezes, rales, or rhonchi. HEART: Regular rate and rhythm without murmurs, rubs, or gallops. 2+ peripheral pulses. Normal capillary refill. ABDOMEN: Soft, nontender, nondistended. Normoactive bowel sounds. No guarding, no rebound. No masses appreciated. BACK: Normal contour, no midline tenderness. Rectal exam deferred. GENITAL/PELVC: Deferred. EXTREMITIES: Normal range of motion, no pitting or edema. No cyanosis. NEUROLOGICAL: No focal neurological deficits. Cranial nerves III-XII grossly intact. Moves all extremities spontaneously and on command. PSYCH: Normal mood, normal affect. No suicidal thoughts/ideations. No homicidal thoughts/ideations. No hallucinations. SKIN: Warm, dry, normal turgor, no rashes or lesions noted. ASSESSMENT AND PLAN: This patient is a 42-year-old male who presents with headache following head injury prior to arrival. 1. Will obtain CT head and reassess. 2. Will give IV Toradol with Reglan. TRAVEL OUTSIDE OF THE [place] IN LAST 30 DAYS: No - HPI Patient complains to provider of: Contusion, Injury Injury to: Forehead Location of problem: Head Occurred: Just prior to arrival Where: Home Timing: Still present Context: Direct blow Loss consciousness: No loss of consciousness, Dazed Remembers: Injury, Coming to hospital - Related Data Allergies/Adverse Reactions: Influenza A (H1N1)Vaccine 2008 * [Influenza A (H1N1)Vaccine 2008] Allergy (Verified 10/30/18 18:38) Past Medical History - General Information source: Patient - Social History Smoking Status: Unknown if Ever Smoked Chew tobacco use (# tins/day): No Frequency of alcohol use: None Drug Abuse: None Lives with: Family Family History: Reviewed & Not Pertinent Patient has suicidal ideation: No Patient has homicidal ideation: No - Past Medical History Cardiac Medical History: Reports: Hx Hypercholesterolemia, Hx Hypertension Pulmonary Medical History: Reports: None EENT Medical History: Reports: None Neurological Medical History: Reports: None. Denies: Hx Cerebrovascular Accident Endocrine Medical History: Reports: Hx Diabetes Mellitus Type 1, Hx Diabetes Mellitus Type 2 Renal/ Medical History: Reports: None. Denies: Hx Peritoneal Dialysis Malignancy Medical History: Reports None GI Medical History: Reports: None Musculoskeletal Medical History: Reports None Skin Medical History: Reports None Psychiatric Medical History: Reports: Hx Depression Traumatic Medical History: Reports: None Infectious Medical History: Reports: None Past Surgical History: Reports: Hx Appendectomy, Hx Orthopedic Surgery - left arm, Hx Tonsillectomy - Immunizations Hx Diphtheria, Pertussis, Tetanus Vaccination: Yes Review of Systems - Review of Systems Constitutional: No symptoms reported EENT: No symptoms reported Cardiovascular: No symptoms reported Respiratory: No symptoms reported Gastrointestinal: No symptoms reported Genitourinary: No symptoms reported Male Genitourinary: No symptoms reported Musculoskeletal: No symptoms reported Skin: No symptoms reported Hematologic/Lymphatic: No symptoms reported Neurological/Psychological: See HPI, Headaches -: Yes All other systems reviewed and negative Physical Exam - Vital signs Vitals: Temp Pulse Resp BP Pulse Ox 97.6 F 88 20 114/65 100 10/30/18 19:24 10/30/18 19:24 10/30/18 19:24 10/30/18 19:24 10/30/18 19:24 Interpretation: Normal - General General appearance: Appears well, Alert - HEENT Head: Normocephalic, Atraumatic Eyes: Normal Pupils: PERRL - Respiratory Respiratory status: No respiratory distress Chest status: Nontender Breath sounds: Normal Chest palpation: Normal - Cardiovascular Rhythm: Regular Heart sounds: Normal auscultation Murmur: No - Abdominal Inspection: Normal Distension: No distension Bowel sounds: Normal Tenderness: Nontender Organomegaly: No organomegaly - Back Back: Normal, Nontender - Extremities General upper extremity: Normal inspection, Nontender, Normal color, Normal ROM, Normal temperature General lower extremity: Normal inspection, Nontender, Normal color, Normal ROM, Normal temperature, Normal weight bearing. No: Wolf's sign - Neurological Neuro grossly intact: Yes Cognition: Normal Orientation: AAOx4 Vandana Coma Scale Eye Opening: Spontaneous Vandana Coma Scale Verbal: Oriented Vandana Coma Scale Motor: Obeys Commands Vandana Coma Scale Total: 15 Speech: Normal Motor strength normal: LUE, RUE, LLE, RLE Sensory: Normal - Psychological Associated symptoms: Normal affect, Normal mood - Skin Skin Temperature: Warm Skin Moisture: Dry Skin Color: Normal Course - Re-evaluation Re-evalutation: 10/30/18 23:56 CT scan is negative. Will discharge the patient home with strict return precautions and follow-up with his primary physician. All results were explained to and discussed with patient and his family, and all questions addressed and answered for the patient. The patient and family voices both understanding and agreeing with the plan. - Vital Signs Vital signs: Temp Pulse Resp BP Pulse Ox 97.6 F 88 20 114/65 100 10/30/18 19:24 10/30/18 19:24 10/30/18 19:24 10/30/18 19:24 10/30/18 19:24 - Laboratory Result Diagrams: 10/30/18 19:08 10/30/18 19:08 Laboratory results interpreted by me: 10/30/18 10/30/18 10/30/18 19:08 19:08 19:24 WBC 14.5 H RBC 4.25 L Hgb 13.1 L Absolute Neuts (auto) 10.4 H Sodium 136.9 L Glucose 220 H POC Glucose Urine Ketones 20 H 10/30/18 21:28 WBC RBC Hgb Absolute Neuts (auto) Sodium Glucose POC Glucose 214 H Urine Ketones - Diagnostic Test Radiology reviewed: Image reviewed, Reports reviewed Discharge - Discharge Clinical Impression: Concussion Qualifiers: Encounter type: initial encounter Loss of consciousness presence/duration: without LOC Qualified Code(s): S06.0X0A - Concussion without loss of consciousness, initial encounter Condition: Good Disposition: HOME, SELF-CARE Instructions: Concussion ([facility]) Additional Instructions: You have been evaluated in the Emergency Department for a head injury, and as a result you have a concussion. While here, you had a CT scan of your head that was normal and it is now safe to be discharged home. Please follow-up with your primary physician as instructed in 1 week to be rechecked. Return to the Emergency Department if you experience uncontrollable headaches, numbness/tingling of your extremities, the inability to walk, or any other concerning symptoms. Prescriptions: Ondansetron [Zofran Odt 4 mg Tablet] 4 mg PO Q6HP PRN #30 tab.rapdis PRN Reason: For Nausea/Vomiting Diclofenac Sodium 75 mg PO BID #30 tablet.dr Referrals: CATY DUBOSE GRADUATE ADVISOR, GRADUATE ADVISOR [NURSE PRACTITIONER] - Follow up as needed Print Language: Slovak
[2018-10-30] MEDS ORDERED: METOCLOPRAMIDE HCL INJ/PF 10 MG/2 ML SDV IV ONE (21:05)
[2018-10-30] MEDS ORDERED: KETOROLAC TROMETHAMINE INJ/PF 30 MG/1 ML SDV IV ONE (21:05)
--- NOTE | 2018-10-30 21:23 | RADIOLOGY REPORT (SQ) ---
CT HEAD WITHOUT IV CONTRAST EXAM DATE: 10/30/2018 8:14 PM CDT HISTORY: Head injury. COMPARISON: None. TECHNIQUE: CT scan of the brain without IV contrast. This exam was performed according to our departmental dose-optimization program, which includes automated exposure control, adjustment of the mA and/or kV according to patient size and/or use of iterative reconstruction technique. FINDINGS: The ventricles, cisterns, and sulci are age-appropriate. No evidence of acute infarction, intracranial hemorrhage, extra-axial fluid collection, or midline shift. No air-fluid levels are seen in the paranasal sinuses to suggest acute sinusitis. No depressed skull fracture. IMPRESSION: No acute intracranial findings.
[2018-10-31 00:10] VITALS: BP 130/61
== END 2018-10-31 00:15 | disposition home or self-care (01) ==
LOC: ER 18:37
DX: S06.0X0A Concussion without loss of consciousness, initial encounter (principal); W22.8XXA Striking against or struck by other objects, initial encounter; E78.00 Pure hypercholesterolemia, unspecified; I10 Essential (primary) hypertension; E11.9 Type 2 diabetes mellitus without complications
CPT/HCPCS: 36415; 82962; 85025; 80053; 81001; 70450; J1885; J2765

== ENCOUNTER 2019-01-06 07:27 | Inpatient (IN) | payer BC, MEDICARE, MEDICAID ==
[2019-01-06] MEDS ORDERED: NORMAL SALINE 1000 ML 1,000 ML IV ONE (07:36)
[2019-01-06] MEDS ORDERED: ONDANSETRON HCL INJ/PF 4 MG/2 ML SDV IV ONE (08:21)
--- NOTE | 2019-01-06 08:21 | ER Document Report ---
ED Blood Sugar Problem - General Chief Complaint: High Blood Sugar Stated Complaint: VOMITING/WEAKNESS Time Seen by Provider: 01/06/19 08:00 Primary Care Provider: BRYSON SANCHEZ MD [Primary Care Provider] - Follow up as needed Notes: 43-year-old male with diabetes presents to the emergency department with chief c omplaint of abdominal pain, nausea and vomiting since 2 AM this morning. Patient states that his insulin pump "fell off". Patient checked his sugars yesterday and they were over 600 but was otherwise feeling okay. He woke up at 2:00 suddenly with the symptoms and rechecked his sugars and they were still very high. Patient denies any confusion or weakness, complains of generalized pain, nausea and vomiting. Patient has reduced appetite because he cannot hold anything down. TRAVEL OUTSIDE OF THE [place] IN LAST 30 DAYS: No - Related Data Allergies/Adverse Reactions: Influenza A (H1N1)Vaccine 2008 * [Influenza A (H1N1)Vaccine 2008] Allergy (Verified 01/06/19 07:34) Past Medical History - Social History Smoking Status: Never Smoker Family History: Reviewed & Not Pertinent Patient has suicidal ideation: No Patient has homicidal ideation: No - Past Medical History Cardiac Medical History: Reports: Hx Hypercholesterolemia, Hx Hypertension Neurological Medical History: Denies: Hx Cerebrovascular Accident Endocrine Medical History: Reports: Hx Diabetes Mellitus Type 1, Hx Diabetes Mellitus Type 2 Renal/ Medical History: Denies: Hx Peritoneal Dialysis Psychiatric Medical History: Reports: Hx Depression Past Surgical History: Reports: Hx Appendectomy, Hx Orthopedic Surgery - left arm, Hx Tonsillectomy - Immunizations Hx Diphtheria, Pertussis, Tetanus Vaccination: Yes Review of Systems - Review of Systems Constitutional: See HPI EENT: No symptoms reported Cardiovascular: No symptoms reported Respiratory: See HPI Gastrointestinal: See HPI Genitourinary: No symptoms reported Male Genitourinary: No symptoms reported Musculoskeletal: See HPI Skin: No symptoms reported Hematologic/Lymphatic: No symptoms reported Neurological/Psychological: No symptoms reported Physical Exam - Vital signs Vitals: Temp Pulse Resp BP Pulse Ox 97.5 F 98 16 107/51 L 100 01/06/19 07:31 01/06/19 07:31 01/06/19 07:31 01/06/19 07:31 01/06/19 07:31 - Notes Notes: PHYSICAL EXAMINATION: Reviewed vital signs and charting by RN GENERAL: Alert, interacts well. No acute distress. HEAD: Normocephalic, atraumatic. EYES: Pupils equal and round. Extraocular movements intact. ENT: Oral mucosa moist, tongue midline. NECK: Full range of motion. Trachea midline. LUNGS: Clear to auscultation bilaterally, no wheezes, rales, or rhonchi. Tachypnea HEART: Regular rate and rhythm. No murmur ABDOMEN: soft, generalized tenderness to palpation. No distention. Bowel sounds present EXTREMITIES: Moves all 4 extremities spontaneously. No edema, No cyanosis. PSYCH: Normal affect, normal mood. SKIN: Warm, dry, normal turgor. No rashes or lesions noted. Course - Re-evaluation Re-evalutation: 01/06/19 09:34 Patient in mild distress, tachypneic, is not diaphoretic. Lab work shows a blood glucose of 663, bicarb is 16, potassium 5.6. Will obtain an EKG. VBG showed a pH of 7.31. I called Dr. Pineda who is covering for Dr. Sanchez in the hospital and he accepted the patient for full admission to the [facility] for DKA. An insulin infusion has been initiated. Patient has received 1 L normal saline initially and I ordered a second liter of Ringer's lactate. Patient did not respond to IV Zofran so I will order Phenergan IM once. 01/06/19 09:35 - Vital Signs Vital signs: Temp Pulse Resp BP Pulse Ox 97.5 F 98 15 103/54 L 97 01/06/19 07:31 01/06/19 07:31 01/06/19 08:59 01/06/19 09:00 01/06/19 08:59 - Laboratory Result Diagrams: 01/06/19 08:10 01/06/19 08:10 Laboratory results interpreted by me: 01/06/19 01/06/19 01/06/19 08:10 08:10 08:34 WBC 15.0 H RBC 3.81 L Hgb 12.0 L Hct 37.0 L RDW 14.7 H Lymph % (Auto) 5.1 L Absolute Neuts (auto) 13.4 H Seg Neutrophils % 89.6 H VBG pCO2 28.8 L VBG HCO3 14.2 L Sodium 135.8 L Potassium 5.6 H Chloride 97 L Carbon Dioxide 16 L Anion Gap 23 H BUN 24 H Glucose 663 H* Total Bilirubin 1.4 H Discharge - Discharge Clinical Impression: DKA (diabetic ketoacidoses) Qualifiers: Diabetes mellitus type: type 2 Diabetes mellitus complication detail: without coma Qualified Code(s): E11.10 - Type 2 diabetes mellitus with ketoacidosis without coma Condition: Stable Disposition: ADMITTED INPATIENT Admitting Provider: Pineda Unit Admitted: IMCU Referrals: BRYSON SANCHEZ MD [Primary Care Provider] - Follow up as needed
[2019-01-06] MEDS ORDERED: MORPHINE SULFATE 10 MG/ML INJ IV ONE (08:24)
[2019-01-06 08:32] LABS: ABSOLUTE BASOPHILS # (AUTO) 0.1 10^3/uL (0.0-0.2); ABSOLUTE LYMPHOCYTES (AUTO) 0.8 10^3/uL (0.5-4.7); ABSOLUTE MONOCYTES (AUTO) 0.7 10^3/uL (0.1-1.4); ABSOLUTE NEUT (AUTO) 13.4 10^3/uL (1.7-8.2); BASOPHILS % (AUTO) 0.5 % (0-2); EOSINOPHILS % (AUTO) 0.1 % (0-6); LYMPHOCYTES % (AUTO) 5.1 % (13-45); MEAN CORPUSCULAR HEMOGLOBIN 31.4 pg (27.0-33.4); MEAN CORPUSCULAR HGB CONC 32.3 g/dL (32.0-36.0); MEAN CORPUSCULAR VOLUME 97 fl (80-97); MONOCYTES % (AUTO) 4.7 % (3-13); PLATELET COUNT 272 10^3/uL (150-450); RED BLOOD COUNT 3.81 10^6/uL (4.35-5.55); RED CELL DISTRIBUTION WIDTH 14.7 % (11.5-14.0); SEGMENTED NEUTROPHILS % (AUTO) 89.6 % (42-78); TOTAL CELLS COUNTED % (AUTO) 100 %
[2019-01-06 08:45] LABS: VENOUS BLOOD BASE EXCESS -10.6 mmol/L; VENOUS BLOOD HCO3 14.2 mmol/L (20-32); VENOUS BLOOD PCO2 28.8 mmHg (35-63); VENOUS BLOOD PH 7.31 (7.30-7.42)
[2019-01-06 08:57] LABS: ALBUMIN 4.1 g/dL (3.5-5.0); ALKALINE PHOSPHATASE 107 U/L (38-126); ASPARTATE AMINO TRANSFERASE 28 U/L (17-59); BILIRUBIN,DIRECT 0.2 mg/dL (0.0-0.4); BILIRUBIN,TOTAL 1.4 mg/dL (0.2-1.3); BLOOD UREA NITROGEN 24 mg/dL (7-20); CALCIUM 9.5 mg/dL (8.4-10.2); CARBON DIOXIDE 16 mmol/L (22-30); CHLORIDE 97 mmol/L (98-107); POTASSIUM 5.6 mmol/L (3.6-5.0); TOTAL PROTEIN 6.8 g/dL (6.3-8.2)
[2019-01-06 09:07] LABS: ANION GAP 23 (5-19); GLUCOSE 663 mg/dL (75-110)
[2019-01-06] MEDS ORDERED: DEXTROSE 40% GEL 15 GM TUBE PO PRN ×6 (09:18→10:11)
[2019-01-06] MEDS ORDERED: GLUCAGON,HUMAN RECOMB 1 MG INJ IM PRN ×2 (09:18→10:11)
[2019-01-06] MEDS ORDERED: NORMAL SALINE 100 ML with INSULIN REGULAR, HUMAN 100 UNIT IV PRN ×2 (09:18)
[2019-01-06] MEDS ORDERED: DEXTROSE 50%-WATER 25 GM/50 ML DISP.SYRIN IV PRN ×6 (09:18→10:11)
[2019-01-06] MEDS ORDERED: RINGERS SOLUTION,LACTATED 1,000 ML IV ONE (09:22)
[2019-01-06] MEDS ORDERED: PROMETHAZINE HCL INJ 50 MG/1 ML VIAL IM PRN (09:36)
[2019-01-06] MEDS ORDERED: INSULIN REG, HUMAN 100 UNIT/ML 3 ML VIAL (PYX) ONE (09:41)
[2019-01-06] MEDS: NORMAL SALINE 100 ML with INSULIN REGULAR, HUMAN 100 UNIT IV PRN ×6 (10:01→19:51)
[2019-01-06] MEDS ORDERED: GLUCAGON,HUMAN RECOMB 1 MG INJ SUBCUT PRN (10:08)
[2019-01-06] MEDS ORDERED: ONDANSETRON HCL INJ/PF 4 MG/2 ML SDV IV PRN (10:08)
[2019-01-06] MEDS ORDERED: IPRATROPIUM/ALBUTEROL 0.5-2.5 MG/3 ML AMPUL NEB PRN (10:08)
[2019-01-06] MEDS ORDERED: FENTANYL CITRATE INJ/PF 100 MCG/2 ML AMPUL IV ONE (10:11)
[2019-01-06] MEDS ORDERED: KETOROLAC TROMETHAMINE INJ/PF 30 MG/1 ML SDV IV ONE (10:11)
[2019-01-06] MEDS: NORMAL SALINE 1000 ML 1,000 ML IV PRN ×2 (11:05→17:06)
--- NOTE | 2019-01-06 11:08 | PDOC H&P ---
History of Present Illness Admission Date/PCP: 01/06/19 09:54 BRYSON SANCHEZ Patient complains of: Nausea vomiting History of Present Illness: WOODY TORRES JR is a 43 year old male This is a 43-year-old patient of type 1 diabetes on insulin pump patient of Dr. Sanchez came to the emergency department since this morning 2:00 patient insulin pump is not working patient started feeling nausea vomiting abdominal discomfort Patient's check the blood sugar was running high came to the emergency department with patient's blood sugar was 660 with anion gap is 23 and CO2 is a 16 Patient start on insulin drip and IV fluid Patient's other blood work including lipase and AST and ALT was normal Patient is denied any chest pain to than any shortness of the breath Patient is denied any fever no chills pt is c/o all over body pain pt seen by dr phillips and start insulin pump but per pt and daughter his suger run high all time pt does not know how to operate pump d/w pt and daughter on bedside Past Medical History Cardiac Medical History: Reports: Hyperlipidema, Hypertension Endocrine Medical History: Reports: Diabetes Mellitus Type 1 Psychiatric Medical History: Reports: Depression Past Surgical History Past Surgical History: Reports: Appendectomy, Orthopedic Surgery - left arm, Tonsillectomy Social History Smoking Status: Never Smoker Frequency of Alcohol Use: None Hx Recreational Drug Use: No Hx Prescription Drug Abuse: No Family History Family History: Reviewed & Not Pertinent Parental Family History Reviewed: Yes Children Family History Reviewed: Yes Sibling(s) Family History Reviewed.: Yes Medication/Allergy Allergies/Adverse Reactions: Influenza A (H1N1)Vaccine 2008 * [Influenza A (H1N1)Vaccine 2008] Allergy (Verified 01/06/19 07:34) Review of Systems Constitutional: ABSENT: chills, fever(s), headache(s), weight gain, weight loss Eyes: ABSENT: visual disturbances Ears: ABSENT: hearing changes Cardiovascular: ABSENT: chest pain, dyspnea on exertion, edema, orthropnea, palpitations Respiratory: ABSENT: cough, hemoptysis Gastrointestinal: PRESENT: abdominal pain, nausea, vomiting. ABSENT: constipation, diarrhea, hematemesis, hematochezia Genitourinary: ABSENT: dysuria, hematuria Musculoskeletal: ABSENT: joint swelling Integumentary: ABSENT: rash, wounds Neurological: ABSENT: abnormal gait, abnormal speech, confusion, dizziness, focal weakness, syncope Psychiatric: ABSENT: anxiety, depression, homidical ideation, suicidal ideation Endocrine: ABSENT: cold intolerance, heat intolerance, menstrual abnormalities, polydipsia, polyuria Hematologic/Lymphatic: ABSENT: easy bleeding, easy bruising, lymphadenopathy Physical Exam Vital Signs: Temp Pulse Resp BP Pulse Ox 97.5 F 98 15 103/54 L 97 01/06/19 07:31 01/06/19 07:31 01/06/19 08:59 01/06/19 09:00 01/06/19 08:59 Intake & Output 01/05/19 01/06/19 01/07/19 06:59 06:59 06:59 Intake Total 1999 Balance 1999 Weight 69.1 kg General appearance: PRESENT: no acute distress, well-developed, well-nourished Head exam: PRESENT: atraumatic, normocephalic Eye exam: PRESENT: conjunctiva pink, EOMI, PERRLA. ABSENT: scleral icterus Ear exam: PRESENT: normal external ear exam Mouth exam: PRESENT: moist, tongue midline Neck exam: PRESENT: full ROM. ABSENT: carotid bruit, JVD, lymphadenopathy, thyromegaly Respiratory exam: PRESENT: clear to auscultation dianne Cardiovascular exam: PRESENT: RRR. ABSENT: diastolic murmur, rubs, systolic murmur Pulses: PRESENT: normal dorsalis pedis pul, +2 pedal pulses bilateral Vascular exam: PRESENT: normal capillary refill GI/Abdominal exam: PRESENT: normal bowel sounds, soft. ABSENT: distended, guarding, mass, organolmegaly, rebound, tenderness Rectal exam: PRESENT: deferred Neurological exam: PRESENT: alert, awake, oriented to person, oriented to place, oriented to time, oriented to situation, CN II-XII grossly intact. ABSENT: motor sensory deficit Psychiatric exam: PRESENT: appropriate affect, normal mood. ABSENT: homicidal ideation, suicidal ideation Skin exam: PRESENT: dry, intact, warm. ABSENT: cyanosis, rash Results Laboratory Results: 01/06/19 08:10 01/06/19 08:10 01/06/19 01/06/19 01/06/19 08:10 08:10 08:10 WBC 15.0 H RBC 3.81 L Hgb 12.0 L Hct 37.0 L MCV 97 MCH 31.4 MCHC 32.3 RDW 14.7 H Plt Count 272 Seg Neutrophils % 89.6 H VBG pH VBG pCO2 VBG HCO3 VBG Base Excess Sodium 135.8 L Potassium 5.6 H Chloride 97 L Carbon Dioxide 16 L Anion Gap 23 H BUN 24 H Creatinine 1.08 Est GFR ( Amer) > 60 Glucose 663 H* Calcium 9.5 Total Bilirubin 1.4 H AST 28 Alkaline Phosphatase 107 Total Protein 6.8 Albumin 4.1 Lipase 24.0 01/06/19 08:34 WBC RBC Hgb Hct MCV MCH MCHC RDW Plt Count Seg Neutrophils % VBG pH 7.31 VBG pCO2 28.8 L VBG HCO3 14.2 L VBG Base Excess -10.6 Sodium Potassium Chloride Carbon Dioxide Anion Gap BUN Creatinine Est GFR ( Amer) Glucose Calcium Total Bilirubin AST Alkaline Phosphatase Total Protein Albumin Lipase Assessment & Plan - Diagnosis (1) DKA (diabetic ketoacidoses) Qualifiers: Diabetes mellitus type: type 1 Diabetes mellitus complication detail: without coma Qualified Code(s): E10.10 - Type 1 diabetes mellitus with k etoacidosis without coma Is this a current diagnosis for this admission?: Yes Plan: Start the patient on insulin drip per protocol Keep her n.p.o. IV fluid Serial check the Chem-7 (2) Dehydration Is this a current diagnosis for this admission?: Yes Plan: Due to the above conditions continues to IV fluid (3) Diabetes mellitus type 1 with complications Is this a current diagnosis for this admission?: Yes Plan: Is currently on insulin pump We will consult the data processing systems project planner (4) Gastroenteritis, noninfectious Qualifiers: Dietetic gastroenteritis type: unspecified Is this a current diagnosis for this admission?: Yes Plan: Continues to IV fluids - Time Time Spent: 50 to 70 Minutes Medications reviewed and adjusted accordingly: Yes Anticipated discharge: Home Within: Other - Inpatient Certification Based on my medical assessment, after consideration of the patient's comorbidities, presenting symptoms, or acuity I expect that the services needed warrant INPATIENT care.: Yes I certify that my determination is in accordance with my understanding of Medicare's requirements for reasonable and necessary INPATIENT services [42 CFR 412.3e].: Yes Medical Necessity: Significant Comorbidiites Make Outpatient Treatment Too Risky, Need For IV Fluids, Need For Continuous Telemetry Monitoring Post Hospital Care: D/C Book Sorter Documentation - Plan Summary Plan Summary: With the patient in IMCU Start on insulin drip per protocol We will contact the insulin pump to reinsert Other MD orders d/w pt and daughter draw all culture to r/o any sepsis order ct abd/pelvis
[2019-01-06 11:18] LABS: BLOOD UREA NITROGEN 26 mg/dL (7-20); CALCIUM 9.1 mg/dL (8.4-10.2); CARBON DIOXIDE 11 mmol/L (22-30); CHLORIDE 104 mmol/L (98-107); POTASSIUM 5.3 mmol/L (3.6-5.0)
[2019-01-06 11:25] LABS: ANION GAP 25 (5-19)
[2019-01-06 11:26] LABS: GLUCOSE 603 mg/dL (75-110)
--- NOTE | 2019-01-06 11:36 | RADIOLOGY REPORT (SQ) ---
EXAM DESCRIPTION: CT HEAD WITHOUT COMPLETED DATE/TIME: 01/06/2019 11:25 am REASON FOR STUDY: headche COMPARISON: 11/26/2018 TECHNIQUE: Axial images acquired through the brain without intravenous contrast. Images reviewed wi th bone, brain and subdural windows. Additional sagittal and coronal reconstructions were generated. Images stored on PACS. All CT scanners at this facility use dose modulation, iterative reconstruction, and/or weight based d osing when appropriate to reduce radiation dose to as low as reasonably achievable (ALARA). [facility]: Dose Right [facility]: CareDose [facility]: Dose Right [facility]: Teradose 4D [facility]: [employer] RADIATION DOSE: CT Rad equipment meets quality standard of care and radiation dose reduction techniq ues were employed. CTDIvol: 53.2 mGy. DLP: 1070 mGy-cm. mGy. LIMITATIONS: None. FINDINGS: VENTRICLES: Normal size and contour. CEREBRUM: No masses. No hemorrhage. No midline shift. No evidence for acute infarction. Normal gra y/white matter differentiation. No areas of low density in the white matter. CEREBELLUM: No masses. No hemorrhage. No alteration of density. No evidence for acute infarction. EXTRAAXIAL SPACES: No fluid collections. No masses. ORBITS AND GLOBE: No intra- or extraconal masses. Normal contour of globe without masses. CALVARIUM: No fracture. PARANASAL SINUSES: No fluid or mucosal thickening. SOFT TISSUES: No mass or hematoma. OTHER: No other significant finding. IMPRESSION: NORMAL BRAIN CT WITHOUT CONTRAST. EVIDENCE OF ACUTE STROKE: NO. COMMENT: Quality ID # [id number]: Final reports with documentation of one or more dose reduction techniques (e.g., Automated exposure control, adjustment of the mA and/or kV according to patient size, use of iterative reconstruction technique) TECHNICAL DOCUMENTATION: JOB ID: [id number] [employer]- All Rights Reserved Reading location - IP/workstation name: [email or web address]
--- NOTE | 2019-01-06 11:40 | RADIOLOGY REPORT (SQ) ---
EXAM DESCRIPTION: CT ABD/PELVIS NO ORAL OR IV COMPLETED DATE/TIME: 01/06/2019 11:25 am REASON FOR STUDY: abd pain COMPARISON: None. TECHNIQUE: CT scan of the abdomen and pelvis performed without intravenous or oral contrast. Images reviewed with lung, soft tissue, and bone windows. Reconstructed coronal and sagittal MPR images revi ewed. All images stored on PACS. All CT scanners at this facility use dose modulation, iterative reconstruction, and/or weight based d osing when appropriate to reduce radiation dose to as low as reasonably achievable (ALARA). [facility]: Dose Right [facility]: CareDose [facility]: Dose Right [facility]: Teradose 4D [facility]: Smart PrintFu RADIATION DOSE: CT Rad equipment meets quality standard of care and radiation dose reduction techniq ues were employed. CTDIvol: 14.4 mGy. DLP: 833 mGy-cm.mGy. LIMITATIONS: None. FINDINGS: LOWER CHEST: No significant findings. No nodules or infiltrates. NON-CONTRASTED LIVER, SPLEEN, ADRENALS: Evaluation limited by lack of IV contrast. No identified sign ificant masses. Fatty liver PANCREAS: No masses. No peripancreatic inflammatory changes. GALLBLADDER: No identified stones by CT criteria. No inflammatory changes to suggest cholecystitis. RIGHT KIDNEY AND URETER: No suspicious masses. Assessment limited by lack of IV contrast. No signif icant calcifications. Mild hydronephrosis and hydroureter. LEFT KIDNEY AND URETER: No suspicious masses. Assessment limited by lack of IV contrast. No signifi cant calcifications. Mild hydronephrosis and hydroureter. AORTA AND RETROPERITONEUM: No aneurysm. No retroperitoneal masses or adenopathy. BOWEL AND PERITONEAL CAVITY: No obvious masses or inflammatory changes. No free fluid. APPENDIX: Not visualized. PELVIS, BLADDER, AND ABDOMINAL WALL:Massive bladder distention. BONES: No significant findings. OTHER: No other significant finding. IMPRESSION: Massive bladder distention above the level of the umbilicus. Mild hydronephrosis and hy droureter. COMMENT: Quality ID # [id number]: Final reports with documentation of one or more dose reduction techniques (e.g., Automated exposure control, adjustment of the mA and/or kV according to patient size, use of iterative reconstruction technique) TECHNICAL DOCUMENTATION: JOB ID: [id number] [employer]- All Rights Reserved Reading location - IP/workstation name: [email or web address]
[2019-01-06] MEDS: CEFTRIAXONE 1 GM/D5W RTU 1 GM/50 ML RTUPB IV SCH (13:09)
[2019-01-06 13:11] LABS: APPEARANCE,URINE CLEAR; BILIRUBIN,URINE NEGATIVE (NEGATIVE); COLOR,URINE STRAW; GLUCOSE, URINE >=500 mg/dL (NEGATIVE); KETONES,URINE 80 mg/dL (NEGATIVE); LEUKOCYTE ESTERASE,URINE NEGATIVE (NEGATIVE); NITRITE,URINE NEGATIVE (NEGATIVE); PROTEIN,URINE NEGATIVE (NEGATIVE); URINE SPECIFIC GRAVITY 1.024; UROBILINOGEN,URINE NEGATIVE mg/dL (<2.0)
[2019-01-06] MEDS: HEPARIN SOD (PORCINE) 5,000 UNIT/ML 1 ML VIAL SUBCUT SCH ×2 (13:17→21:24)
[2019-01-06 14:57] LABS: ANION GAP 16 (5-19); BLOOD UREA NITROGEN 28 mg/dL (7-20); CALCIUM 8.8 mg/dL (8.4-10.2); CARBON DIOXIDE 20 mmol/L (22-30); CHLORIDE 106 mmol/L (98-107); POTASSIUM 4.4 mmol/L (3.6-5.0)
[2019-01-06 15:06] LABS: GLUCOSE 417 mg/dL (75-110)
[2019-01-06] MEDS: VENLAFAXINE HCL 25 MG TABLET PO SCH (17:01)
[2019-01-06] MEDS ORDERED: POTASSI CL 20 MEQ/NS 1L 1000 ML IV PRN ×2 (18:42→21:22)
[2019-01-06] MEDS ORDERED: POTASSI CL 20 MEQ/D5-1/2NS 1L 1000 ML IV PRN (18:43)
[2019-01-06] MEDS ORDERED: DEXTROSE 5%-1/2 NORMAL SALINE 1,000 ML IV PRN (18:43)
[2019-01-06 19:29] LABS: ANION GAP 6 (5-19); BLOOD UREA NITROGEN 29 mg/dL (7-20); CALCIUM 8.5 mg/dL (8.4-10.2); CARBON DIOXIDE 28 mmol/L (22-30); CHLORIDE 107 mmol/L (98-107); GLUCOSE 152 mg/dL (75-110); POTASSIUM 3.8 mmol/L (3.6-5.0)
[2019-01-06] MEDS: ACETAMINOPHEN 325 MG TABLET PO PRN (20:29)
[2019-01-06] MEDS: PANTOPRAZOLE SODIUM 40 MG VIAL IV SCH (21:23)
[2019-01-06] MEDS: ATORVASTATIN CALCIUM 80 MG TABLET PO SCH (21:24)
[2019-01-06] MEDS: TRAZODONE HCL 50 MG TABLET PO SCH (21:25)
[2019-01-06] MEDS ORDERED: INSULIN GLARGINE,HUM.REC.ANLOG 1,000 UNIT/10 ML VIAL SUBCUT ONE (21:30)
[2019-01-06] MEDS ORDERED: INSULIN GLARGINE,HUM.REC.ANLOG 1,000 UNIT/10 ML VIAL (PYX) SUBCUT ONE (22:00)
[2019-01-06] MEDS: GABAPENTIN 300 MG CAPSULE PO SCH (22:04)
[2019-01-06] MEDS: INSULIN LISPRO 100 UNIT/ML 3 ML VIAL SUBCUT SCH (22:28)
--- NOTE | 2019-01-06 23:14 | EKG REPORT ---
SEVERITY:- NORMAL ECG - SINUS RHYTHM PROBABLE LVH : Confirmed by: Juany Lewis 06-Jan-2019 23:13:35
[2019-01-07 00:01] LABS: ANION GAP 11 (5-19); BLOOD UREA NITROGEN 27 mg/dL (7-20); CALCIUM 8.3 mg/dL (8.4-10.2); CARBON DIOXIDE 21 mmol/L (22-30); CHLORIDE 110 mmol/L (98-107); GLUCOSE 132 mg/dL (75-110); POTASSIUM 4.3 mmol/L (3.6-5.0)
[2019-01-07 03:29] LABS: ANION GAP 14 (5-19); BLOOD UREA NITROGEN 28 mg/dL (7-20); CARBON DIOXIDE 17 mmol/L (22-30); CHLORIDE 107 mmol/L (98-107); GLUCOSE 285 mg/dL (75-110); POTASSIUM 4.8 mmol/L (3.6-5.0)
[2019-01-07] MEDS ORDERED: INSULIN LISPRO 100 UNIT/ML 3 ML VIAL SUBCUT ONE (04:30)
[2019-01-07] MEDS: ACETAMINOPHEN 325 MG TABLET PO PRN ×2 (05:02→09:22)
[2019-01-07] MEDS: GABAPENTIN 300 MG CAPSULE PO SCH ×3 (05:02→22:01)
[2019-01-07] MEDS: HEPARIN SOD (PORCINE) 5,000 UNIT/ML 1 ML VIAL SUBCUT SCH ×3 (05:04→22:01)
[2019-01-07 08:08] LABS: ABSOLUTE BASOPHILS # (AUTO) 0.1 10^3/uL (0.0-0.2); ABSOLUTE LYMPHOCYTES (AUTO) 2.3 10^3/uL (0.5-4.7); ABSOLUTE MONOCYTES (AUTO) 1.1 10^3/uL (0.1-1.4); ABSOLUTE NEUT (AUTO) 12.3 10^3/uL (1.7-8.2); BASOPHILS % (AUTO) 0.3 % (0-2); HEMATOCRIT 30.2 % (37.9-51.0); LYMPHOCYTES % (AUTO) 14.4 % (13-45); MEAN CORPUSCULAR HEMOGLOBIN 31.3 pg (27.0-33.4); MEAN CORPUSCULAR VOLUME 95 fl (80-97); MONOCYTES % (AUTO) 7.1 % (3-13); PLATELET COUNT 245 10^3/uL (150-450); RED BLOOD COUNT 3.19 10^6/uL (4.35-5.55); RED CELL DISTRIBUTION WIDTH 14.8 % (11.5-14.0); SEGMENTED NEUTROPHILS % (AUTO) 78.2 % (42-78); TOTAL CELLS COUNTED % (AUTO) 100 %; WHITE BLOOD COUNT 15.8 10^3/uL (4.0-10.5)
[2019-01-07] MEDS: INSULIN LISPRO 100 UNIT/ML 3 ML VIAL SUBCUT SCH ×4 (08:30→22:01)
[2019-01-07 08:31] LABS: ANION GAP 11 (5-19); BLOOD UREA NITROGEN 28 mg/dL (7-20); CARBON DIOXIDE 18 mmol/L (22-30); CHLORIDE 108 mmol/L (98-107); GLUCOSE 253 mg/dL (75-110); POTASSIUM 4.6 mmol/L (3.6-5.0)
[2019-01-07] MEDS: NORMAL SALINE 1000 ML 1,000 ML IV PRN ×2 (08:38→20:00)
[2019-01-07] MEDS: VENLAFAXINE HCL 25 MG TABLET PO SCH (09:21)
[2019-01-07] MEDS: PANTOPRAZOLE SODIUM 40 MG VIAL IV SCH ×2 (09:21→22:01)
[2019-01-07] MEDS ORDERED: INSULIN GLARGINE,HUM.REC.ANLOG 1,000 UNIT/10 ML VIAL SUBCUT SCH (10:00)
[2019-01-07] MEDS ORDERED: VENLAFAXINE HCL 50 MG PO SCH (10:00)
[2019-01-07] MEDS: CEFTRIAXONE 1 GM/D5W RTU 1 GM/50 ML RTUPB IV SCH (12:13)
[2019-01-07 13:27] LABS: ANION GAP 9 (5-19); BLOOD UREA NITROGEN 27 mg/dL (7-20); CALCIUM 8.4 mg/dL (8.4-10.2); CARBON DIOXIDE 20 mmol/L (22-30); CHLORIDE 108 mmol/L (98-107); GLUCOSE 287 mg/dL (75-110); POTASSIUM 4.9 mmol/L (3.6-5.0)
[2019-01-07 16:53] LABS: ANION GAP 7 (5-19); BLOOD UREA NITROGEN 25 mg/dL (7-20); CALCIUM 8.2 mg/dL (8.4-10.2); CARBON DIOXIDE 22 mmol/L (22-30); CHLORIDE 109 mmol/L (98-107); GLUCOSE 303 mg/dL (75-110); POTASSIUM 4.8 mmol/L (3.6-5.0)
[2019-01-07 21:00] LABS: ANION GAP 7 (5-19); BLOOD UREA NITROGEN 21 mg/dL (7-20); CALCIUM 8.4 mg/dL (8.4-10.2); CARBON DIOXIDE 22 mmol/L (22-30); CHLORIDE 107 mmol/L (98-107); GLUCOSE 284 mg/dL (75-110); POTASSIUM 4.5 mmol/L (3.6-5.0)
[2019-01-07] MEDS: ATORVASTATIN CALCIUM 80 MG TABLET PO SCH (22:01)
[2019-01-07] MEDS: TRAZODONE HCL 50 MG TABLET PO SCH (22:01)
[2019-01-07] MEDS: INSULIN GLARGINE,HUM.REC.ANLOG 1,000 UNIT/10 ML VIAL SUBCUT SCH (22:02)
--- NOTE | 2019-01-07 22:36 | PDOC PROGRESS REPORT ---
Subjective Progress Note for:: 01/07/19 Subjective:: Patient continue to experience hyperglycemia since off insulin drip. He admitted to dysuria and frequency preceding his recent onset of severe hyperglycemia. His blood glucose was fairly okay until few days prior to his presentation. Complain about generalized body aches and pain. No chest pain. There is intermittent nausea but no vomiting or abdominal pain. No fever but reported chills with episodes of diaphoresis. Reason For Visit: DKA Physical Exam Vital Signs: Temp Pulse Resp BP Pulse Ox 98.1 F 95 18 111/60 92 01/07/19 14:52 01/07/19 14:52 01/07/19 14:01 01/07/19 14:52 01/07/19 14:52 Intake & Output 01/06/19 01/07/19 01/08/19 06:59 06:59 06:59 Intake Total 5130 887 Output Total 2125 Balance 3005 887 Weight 70.6 kg General appearance: PRESENT: no acute distress, well-developed, well-nourished Head exam: PRESENT: atraumatic, normocephalic Eye exam: PRESENT: conjunctiva pink. ABSENT: scleral icterus Ear exam: PRESENT: normal external ear exam Mouth exam: PRESENT: moist Respiratory exam: PRESENT: clear to auscultation dianne Cardiovascular exam: PRESENT: RRR. ABSENT: diastolic murmur, rubs, systolic murmur Vascular exam: ABSENT: pallor GI/Abdominal exam: PRESENT: normal bowel sounds, soft. ABSENT: distended, guarding, mass, organolmegaly, rebound, tenderness Extremities exam: ABSENT: pedal edema Neurological exam: PRESENT: alert, awake, oriented to person, oriented to place, oriented to time, oriented to situation, CN II-XII grossly intact. ABSENT: motor sensory deficit Psychiatric exam: PRESENT: appropriate affect, normal mood. ABSENT: homicidal ideation, suicidal ideation Skin exam: PRESENT: dry, warm Results Laboratory Results: 01/07/19 07:55 01/07/19 15:35 01/06/19 01/06/19 01/07/19 19:00 23:15 03:03 WBC RBC Hgb Hct MCV MCH MCHC RDW Plt Count Seg Neutrophils % Sodium 141.4 141.9 138.0 Potassium 3.8 4.3 4.8 Chloride 107 110 H 107 Carbon Dioxide 28 21 L 17 L Anion Gap 6 11 14 BUN 29 H 27 H 28 H Creatinine 1.07 1.02 1.06 Est GFR ( Amer) > 60 > 60 > 60 Glucose 152 H 132 H 285 H Calcium 8.5 8.3 L 8.0 L 01/07/19 01/07/19 01/07/19 07:55 07:55 12:37 WBC 15.8 H RBC 3.19 L Hgb 10.0 L Hct 30.2 L MCV 95 MCH 31.3 MCHC 33.0 RDW 14.8 H Plt Count 245 Seg Neutrophils % 78.2 H Sodium 137.2 136.5 L Potassium 4.6 4.9 Chloride 108 H 108 H Carbon Dioxide 18 L 20 L Anion Gap 11 9 BUN 28 H 27 H Creatinine 1.09 1.03 Est GFR ( Amer) > 60 > 60 Glucose 253 H 287 H Calcium 8.0 L 8.4 01/07/19 15:35 WBC RBC Hgb Hct MCV MCH MCHC RDW Plt Count Seg Neutrophils % Sodium 137.7 Potassium 4.8 Chloride 109 H Carbon Dioxide 22 Anion Gap 7 BUN 25 H Creatinine 1.15 Est GFR ( Amer) > 60 Glucose 303 H Calcium 8.2 L Impressions: Abdomen/Pelvis CT 01/06/19 00:00 IMPRESSION: Massive bladder distention above the level of the umbilicus. Mild hydronephrosis and hydroureter. Head CT 01/06/19 00:00 IMPRESSION: NORMAL BRAIN CT WITHOUT CONTRAST. EVIDENCE OF ACUTE STROKE: NO. Assessment & Plan - Diagnosis (1) DKA (diabetic ketoacidoses) Qualifiers: Diabetes mellitus type: type 1 Diabetes mellitus complication detail: without coma Qualified Code(s): E10.10 - Type 1 diabetes mellitus with ketoacidosis without coma Is this a current diagnosis for this admission?: Yes Plan: Patient is currently off insulin infusion. Decrease IV N/S rate to 100 ml /hour. D/C D51/2 N/S infusion. Maintain on Humalog insulin sliding scale coverage. 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 Continue premeal and hs humalog insulin sliding scale coverage. Advance to regular diet consistency with carbohy drate restriction to level 3. (3) Hypertension Qualifiers: Hypertension type: essential hypertension Qualified Code(s): I10 - Ess ential (primary) hypertension Is this a current diagnosis for this admission?: Yes Plan: Continue current medication management. (4) Hypercholesterolemia Is this a current diagnosis for this admission?: Yes Plan: Continue current medication management. - Time Time Spent with patient: 25-34 minutes Level of Care: IMCU Medications reviewed and adjusted accordingly: Yes Anticipated discharge: Home - Inpatient Certification Based on my medical assessment, after consideration of the patient's comorbidities, presenting symptoms, or acuity I expect that the services needed warrant INPATIENT care.: Yes I certify that my determination is in accordance with my understanding of Medicare's requirements for reasonable and necessary INPATIENT services [42 CFR 412.3e].: Yes Medical Necessity: Significant Comorbidiites Make Outpatient Treatment Too Risky, Need Close Monitoring Due to Risk of Patient Decompensation, Need For IV Fluids, Need For Continuous Telemetry Monitoring, Need for IV Antibiotics, Risk of Complication if Not Cared For in Hospital, Risk of Diagnosis Which Will Require Inpatient Eval/Care/Monitoring Post Hospital Care: D/C Wallpaper Cleaner Documentation - Plan Summary Plan Summary: See attending physician orders for details about care plan.
[2019-01-08 01:25] LABS: ANION GAP 7 (5-19); BLOOD UREA NITROGEN 17 mg/dL (7-20); CALCIUM 8.4 mg/dL (8.4-10.2); CARBON DIOXIDE 23 mmol/L (22-30); CHLORIDE 107 mmol/L (98-107); GLUCOSE 190 mg/dL (75-110); POTASSIUM 3.8 mmol/L (3.6-5.0)
[2019-01-08 04:07] LABS: ABSOLUTE BASOPHILS # (AUTO) 0.1 10^3/uL (0.0-0.2); ABSOLUTE EOSINOPHILS # (AUTO) 0.6 10^3/uL (0.0-0.6); ABSOLUTE LYMPHOCYTES (AUTO) 3.2 10^3/uL (0.5-4.7); ABSOLUTE MONOCYTES (AUTO) 0.9 10^3/uL (0.1-1.4); ABSOLUTE NEUT (AUTO) 7.8 10^3/uL (1.7-8.2); BASOPHILS % (AUTO) 0.9 % (0-2); EOSINOPHILS % (AUTO) 4.8 % (0-6); HEMATOCRIT 32.4 % (37.9-51.0); HEMOGLOBIN 10.9 g/dL (13.5-17.0); LYMPHOCYTES % (AUTO) 25.3 % (13-45); MEAN CORPUSCULAR HEMOGLOBIN 31.3 pg (27.0-33.4); MEAN CORPUSCULAR HGB CONC 33.6 g/dL (32.0-36.0); MEAN CORPUSCULAR VOLUME 93 fl (80-97); MONOCYTES % (AUTO) 7.2 % (3-13); PLATELET COUNT 253 10^3/uL (150-450); RED BLOOD COUNT 3.47 10^6/uL (4.35-5.55); RED CELL DISTRIBUTION WIDTH 14.9 % (11.5-14.0); SEGMENTED NEUTROPHILS % (AUTO) 61.8 % (42-78); TOTAL CELLS COUNTED % (AUTO) 100 %; WHITE BLOOD COUNT 12.6 10^3/uL (4.0-10.5)
[2019-01-08 04:23] LABS: ANION GAP 7 (5-19); BLOOD UREA NITROGEN 15 mg/dL (7-20); CALCIUM 8.6 mg/dL (8.4-10.2); CARBON DIOXIDE 24 mmol/L (22-30); CHLORIDE 108 mmol/L (98-107); GLUCOSE 152 mg/dL (75-110); POTASSIUM 3.7 mmol/L (3.6-5.0)
[2019-01-08] MEDS: GABAPENTIN 300 MG CAPSULE PO SCH ×3 (05:12→22:14)
[2019-01-08] MEDS: HEPARIN SOD (PORCINE) 5,000 UNIT/ML 1 ML VIAL SUBCUT SCH ×3 (05:12→22:14)
[2019-01-08] MEDS: NORMAL SALINE 1000 ML 1,000 ML IV PRN ×2 (06:09→20:15)
[2019-01-08 08:43] LABS: ANION GAP 5 (5-19); BLOOD UREA NITROGEN 13 mg/dL (7-20); CALCIUM 8.4 mg/dL (8.4-10.2); CARBON DIOXIDE 26 mmol/L (22-30); CHLORIDE 108 mmol/L (98-107); GLUCOSE 136 mg/dL (75-110)
[2019-01-08] MEDS: PANTOPRAZOLE SODIUM 40 MG VIAL IV SCH ×2 (09:14→22:14)
[2019-01-08] MEDS: VENLAFAXINE HCL 25 MG TABLET PO SCH (09:15)
[2019-01-08] MEDS: INSULIN GLARGINE,HUM.REC.ANLOG 1,000 UNIT/10 ML VIAL SUBCUT SCH ×2 (09:15→22:25)
[2019-01-08] MEDS: INSULIN LISPRO 100 UNIT/ML 3 ML VIAL SUBCUT SCH ×4 (09:16→22:15)
[2019-01-08] MEDS: CEFTRIAXONE 1 GM/D5W RTU 1 GM/50 ML RTUPB IV SCH (12:13)
[2019-01-08 12:35] LABS: ANION GAP 8 (5-19); BLOOD UREA NITROGEN 12 mg/dL (7-20); CALCIUM 8.6 mg/dL (8.4-10.2); CARBON DIOXIDE 24 mmol/L (22-30); CHLORIDE 107 mmol/L (98-107); GLUCOSE 189 mg/dL (75-110); POTASSIUM 3.9 mmol/L (3.6-5.0)
[2019-01-08] MEDS: ACETAMINOPHEN 325 MG TABLET PO PRN (16:34)
[2019-01-08 17:30] LABS: ANION GAP 7 (5-19); BLOOD UREA NITROGEN 10 mg/dL (7-20); CALCIUM 8.8 mg/dL (8.4-10.2); CARBON DIOXIDE 27 mmol/L (22-30); CHLORIDE 103 mmol/L (98-107); GLUCOSE 178 mg/dL (75-110); POTASSIUM 4.4 mmol/L (3.6-5.0)
--- NOTE | 2019-01-08 18:54 | PDOC PROGRESS REPORT ---
Subjective Progress Note for:: 01/08/19 Subjective:: Patient denied any chest pain or difficulty with breathing. No fever or chills. No nausea or vomiting. No abdominal pain. voiding without any difficulty or pain. His accuchek trend has been satisfactory on his current insulin regimen. Reason For Visit: DKA Physical Exam Vital Signs: Temp Pulse Resp BP Pulse Ox 97.9 F 86 16 140/73 H 95 01/08/19 07:18 01/08/19 07:18 01/08/19 07:18 01/08/19 07:18 01/08/19 07:18 Intake & Output 01/07/19 01/08/19 01/09/19 06:59 06:59 06:59 Intake Total 5130 2307 Output Total 2125 2650 Balance 3005 -343 Weight 70.6 kg 74.4 kg Physical Exam: General appearance: PRESENT: no acute distress, well-developed, well-nourished Head exam: PRESENT: atraumatic, normocephalic Eye exam: PRESENT: conjunctiva pink. ABSENT: pallor, scleral icterus Ear exam: PRESENT: normal external ear exam Mouth exam: PRESENT: moist Respiratory exam: PRESENT: clear to auscultation dianne Cardiovascular exam: PRESENT: RRR. ABSENT: diastolic murmur, rubs, systolic murmur GI/Abdominal exam: PRESENT: normal bowel sounds, soft. ABSENT: distended, guarding, mass, organomegaly, rebound, tenderness Extremities exam: ABSENT: pedal edema Neurological exam: PRESENT: alert, awake, oriented to person, oriented to place, oriented to time, oriented to situation, CN II-XII grossly intact. ABSENT: mo tor sensory deficit Psychiatric exam: PRESENT: appropriate affect, normal mood. ABSENT: homicidal i deation, suicidal ideation Skin exam: PRESENT: dry, warm Results Laboratory Results: 01/08/19 04:00 01/07/19 01/07/19 01/07/19 07:55 12:37 15:35 WBC RBC Hgb Hct MCV MCH MCHC RDW Plt Count Seg Neutrophils % Sodium 137.2 136.5 L 137.7 Potassium 4.6 4.9 4.8 Chloride 108 H 108 H 109 H Carbon Dioxide 18 L 20 L 22 Anion Gap 11 9 7 BUN 28 H 27 H 25 H Creatinine 1.09 1.03 1.15 Est GFR ( Amer) > 60 > 60 > 60 Glucose 253 H 287 H 303 H Calcium 8.0 L 8.4 8.2 L 01/07/19 01/08/19 01/08/19 20:15 00:37 04:00 WBC 12.6 H RBC 3.47 L Hgb 10.9 L Hct 32.4 L MCV 93 MCH 31.3 MCHC 33.6 RDW 14.9 H Plt Count 253 Seg Neutrophils % 61.8 Sodium 135.7 L 137.2 Potassium 4.5 3.8 Chloride 107 107 Carbon Dioxide 22 23 Anion Gap 7 7 BUN 21 H 17 Creatinine 1.02 0.84 Est GFR ( Amer) > 60 > 60 Glucose 284 H 190 H Calcium 8.4 8.4 01/08/19 04:00 WBC RBC Hgb Hct MCV MCH MCHC RDW Plt Count Seg Neutrophils % Sodium 139.3 Potassium 3.7 Chloride 108 H Carbon Dioxide 24 Anion Gap 7 BUN 15 Creatinine 0.78 Est GFR ( Amer) > 60 Glucose 152 H Calcium 8.6 Impressions: Abdomen/Pelvis CT 01/06/19 00:00 IMPRESSION: Massive bladder distention above the level of the umbilicus. Mild hydronephrosis and hydroureter. Head CT 01/06/19 00:00 IMPRESSION: NORMAL BRAIN CT WITHOUT CONTRAST. EVIDENCE OF ACUTE STROKE: NO. 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 Is this a current diagnosis for this admission?: Yes (3) Hypertension Qualifiers: Hypertension type: essential hypertension Qualified Code(s): I10 - Essential (primary) hypertension Is this a current diagnosis for this admission?: Yes (4) Hypercholesterolemia Is this a current diagnosis for this admission?: Yes - Time Time Spent with patient: 25-34 minutes Level of Care: IMCU Medications reviewed and adjusted accordingly: Yes Anticipated discharge: Home Within: Other - Inpatient Certification Based on my medical assessment, after consideration of the patient's comorbidities, presenting symptoms, or acuity I expect that the services needed warrant INPATIENT care.: Yes I certify that my determination is in accordance with my understanding of Medicare's requirements for reasonable and necessary INPATIENT services [42 CFR 412.3e].: Yes Medical Necessity: Significant Comorbidiites Make Outpatient Treatment Too Risky, Need Close Monitoring Due to Risk of Patient Decompensation, Need For IV Fluids, Need For Continuous Telemetry Monitoring, Need for IV Antibiotics, Risk of Complication if Not Cared For in Hospital, Risk of Diagnosis Which Will Require Inpatient Eval/Care/Monitoring Post Hospital Care: D/C Business Intelligence Engineer Documentation - Plan Summary Plan Summary: Continue current medication management. Obtain BMP and CBC with diff in am.
[2019-01-08 21:16] LABS: ANION GAP 7 (5-19); BLOOD UREA NITROGEN 7 mg/dL (7-20); CALCIUM 7.1 mg/dL (8.4-10.2); CARBON DIOXIDE 20 mmol/L (22-30); CHLORIDE 114 mmol/L (98-107); GLUCOSE 143 mg/dL (75-110); POTASSIUM 3.5 mmol/L (3.6-5.0)
[2019-01-08] MEDS: TRAZODONE HCL 50 MG TABLET PO SCH (22:14)
[2019-01-08] MEDS: ATORVASTATIN CALCIUM 80 MG TABLET PO SCH (22:14)
[2019-01-09] MEDS: GABAPENTIN 300 MG CAPSULE PO SCH ×3 (05:40→22:23)
[2019-01-09] MEDS: HEPARIN SOD (PORCINE) 5,000 UNIT/ML 1 ML VIAL SUBCUT SCH ×3 (05:40→22:21)
[2019-01-09 07:13] LABS: ANION GAP 7 (5-19); BLOOD UREA NITROGEN 9 mg/dL (7-20); CALCIUM 8.7 mg/dL (8.4-10.2); CARBON DIOXIDE 26 mmol/L (22-30); CHLORIDE 111 mmol/L (98-107); POTASSIUM 3.8 mmol/L (3.6-5.0)
[2019-01-09 07:28] LABS: GLUCOSE 65 mg/dL (75-110)
[2019-01-09] MEDS: INSULIN LISPRO 100 UNIT/ML 3 ML VIAL SUBCUT SCH ×4 (08:16→22:23)
[2019-01-09 08:17] LABS: ABSOLUTE BASOPHILS # (AUTO) 0.1 10^3/uL (0.0-0.2); ABSOLUTE EOSINOPHILS # (AUTO) 0.7 10^3/uL (0.0-0.6); ABSOLUTE LYMPHOCYTES (AUTO) 2.6 10^3/uL (0.5-4.7); ABSOLUTE MONOCYTES (AUTO) 0.7 10^3/uL (0.1-1.4); ABSOLUTE NEUT (AUTO) 3.9 10^3/uL (1.7-8.2); BASOPHILS % (AUTO) 0.7 % (0-2); EOSINOPHILS % (AUTO) 8.7 % (0-6); HEMATOCRIT 31.2 % (37.9-51.0); HEMOGLOBIN 10.8 g/dL (13.5-17.0); LYMPHOCYTES % (AUTO) 32.3 % (13-45); MEAN CORPUSCULAR HEMOGLOBIN 32.1 pg (27.0-33.4); MEAN CORPUSCULAR HGB CONC 34.6 g/dL (32.0-36.0); MEAN CORPUSCULAR VOLUME 93 fl (80-97); MONOCYTES % (AUTO) 8.7 % (3-13); PLATELET COUNT 224 10^3/uL (150-450); RED BLOOD COUNT 3.37 10^6/uL (4.35-5.55); RED CELL DISTRIBUTION WIDTH 14.1 % (11.5-14.0); SEGMENTED NEUTROPHILS % (AUTO) 49.6 % (42-78); TOTAL CELLS COUNTED % (AUTO) 100 %; WHITE BLOOD COUNT 7.9 10^3/uL (4.0-10.5)
[2019-01-09] MEDS: PANTOPRAZOLE SODIUM 40 MG VIAL IV SCH ×2 (09:16→22:21)
[2019-01-09] MEDS: VENLAFAXINE HCL 25 MG TABLET PO SCH (09:16)
[2019-01-09] MEDS: INSULIN GLARGINE,HUM.REC.ANLOG 1,000 UNIT/10 ML VIAL SUBCUT SCH (09:16)
[2019-01-09] MEDS: CEFTRIAXONE 1 GM/D5W RTU 1 GM/50 ML RTUPB IV SCH (11:44)
[2019-01-09] MEDS: NORMAL SALINE 1000 ML 1,000 ML IV PRN (17:08)
--- NOTE | 2019-01-09 18:46 | PDOC PROGRESS REPORT ---
Subjective Progress Note for:: 01/09/19 Subjective:: No chest pain or difficulty with breathing. No fever or chills. No nausea or vomiting. No abdominal pain. Patient achs accuchek readings are improving but his chemistry did revealed hypoglycemia this morning. Reason For Visit: DKA Physical Exam Vital Signs: Temp Pulse Resp BP Pulse Ox 98.2 F 82 16 141/81 H 96 01/09/19 07:48 01/09/19 07:48 01/09/19 07:48 01/09/19 07:48 01/09/19 07:48 Intake & Output 01/08/19 01/09/19 01/10/19 06:59 06:59 06:59 Intake Total 2307 2659 Output Total 2650 4025 Balance -343 -1366 Weight 74.4 kg 71.7 kg Physical Exam: General appearance: PRESENT: no acute distress, well-developed, well-nourished Head exam: PRESENT: atraumatic, normocephalic Eye exam: PRESENT: conjunctiva pink. ABSENT: pallor, scleral icterus Ear exam: PRESENT: normal external ear exam Mouth exam: PRESENT: moist Respiratory exam: PRESENT: clear to auscultation dianne Cardiovascular exam: PRESENT: RRR. ABSENT: diastolic murmur, rubs, systolic murmur GI/Abdominal exam: PRESENT: normal bowel sounds, soft. ABSENT: distended, guarding, mass, organomegaly, rebound, tenderness Extremities exam: ABSENT: pedal edema Neurological exam: PRESENT: alert, awake, oriented to person, oriented to place, oriented to time, oriented to situation, CN II-XII grossly intact. ABSENT: motor sensory deficit Psychiatric exam: PRESENT: appropriate affect, normal mood. ABSENT: homicidal ideation, suicidal ideation Skin exam: PRESENT: dry, warm Results Laboratory Results: 01/09/19 03:56 01/09/19 03:56 01/08/19 01/08/19 01/08/19 06:15 12:01 16:00 WBC RBC Hgb Hct MCV MCH MCHC RDW Plt Count Seg Neutrophils % Sodium 138.9 139.4 Cancelled Potassium 4.0 3.9 Cancelled Chloride 108 H 107 Cancelled Carbon Dioxide 26 24 Cancelled Anion Gap 5 8 Cancelled BUN 13 12 Cancelled Creatinine 0.73 0.78 Cancelled Est GFR ( Amer) > 60 > 60 Cancelled Est GFR (Non-Af Amer) Cancelled Glucose 136 H 189 H Cancelled Calcium 8.4 8.6 Cancelled 01/08/19 01/08/19 01/09/19 16:58 20:50 03:56 WBC RBC Hgb Hct MCV MCH MCHC RDW Plt Count Seg Neutrophils % Sodium 136.7 L 140.8 144.0 Potassium 4.4 3.5 L 3.8 Chloride 103 114 H 111 H Carbon Dioxide 27 20 L 26 Anion Gap 7 7 7 BUN 10 7 9 Creatinine 0.65 0.61 0.67 Est GFR ( Amer) > 60 > 60 > 60 Est GFR (Non-Af Amer) Glucose 178 H 143 H 65 L Calcium 8.8 7.1 L 8.7 01/09/19 03:56 WBC 7.9 RBC 3.37 L Hgb 10.8 L Hct 31.2 L MCV 93 MCH 32.1 MCHC 34.6 RDW 14.1 H Plt Count 224 Seg Neutrophils % 49.6 Sodium Potassium Chloride Carbon Dioxide Anion Gap BUN Creatinine Est GFR ( Amer) Est GFR (Non-Af Amer) Glucose Calcium 01/06/19 12:47 Rice Catheter Urine Culture - Final NO GROWTH 2 DAYS Impressions: Abdomen/Pelvis CT 01/06/19 00:00 IMPRESSION: Massive bladder distention above the level of the umbilicus. Mild hydronephrosis and hydroureter. Head CT 01/06/19 00:00 IMPRESSION: NORMAL BRAIN CT WITHOUT CONTRAST. EVIDENCE OF ACUTE STROKE: NO. Assessment & Plan - Diagnosis (1) DKA (diabetic ketoacidoses) Qualifiers: Diabetes mellitus type: type 1 Diabetes mellitus complication detail: without coma Qualified Code(s): E10.10 - Type 1 diabetes mellitus with ketoacidosis without coma Is this a current diagnosis for this admission?: Yes Plan: Resolved. Decrease IV fluid infusion rate to 75ml/hour and encourage increase oral water intake. 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 Is this a current diagnosis for this admission?: Yes (3) Hypertension Qualifiers: Hypertension type: essential hypertension Qualified Code(s): I10 - Essential (primary) hypertension Is this a current diagnosis for this admission?: Yes (4) Hypercholesterolemia Is this a current diagnosis for this admission?: Yes - Time Time Spent with patient: 25-34 minutes Level of Care: IMCU Medications reviewed and adjusted accordingly: Yes Anticipated discharge: Home Within: Other - Inpatient Certification Based on my medical assessment, after consideration of the patient's comorbiditi es, presenting symptoms, or acuity I expect that the services needed warrant INPATIENT care.: Yes I certify that my determination is in accordance with my understanding of [facility]'s requirements for reasonable and necessary INPATIENT services [42 CFR 412.3e].: Yes Medical Necessity: Significant Comorbidiites Make Outpatient Treatment Too Risky, Need Close Monitoring Due to Risk of Patient Decompensation, Need For IV Fluids, Need For Continuous Telemetry Monitoring, Need for IV Antibiotics, Risk of Complication if Not Cared For in Hospital, Risk of Diagnosis Which Will Require Inpatient Eval/Care/Monitoring Post Hospital Care: D/C Digital Watch Assembler Documentation - Plan Summary Plan Summary: Decrease evening dose of Lantus insulin to 15 units. Follow up on blood culture finding. Urine culture is no growth x 2 days.
[2019-01-09] MEDS ORDERED: INSULIN GLARGINE,HUM.REC.ANLOG 1,000 UNIT/10 ML VIAL SUBCUT SCH (22:00)
[2019-01-09] MEDS: ATORVASTATIN CALCIUM 80 MG TABLET PO SCH (22:22)
[2019-01-09] MEDS: TRAZODONE HCL 50 MG TABLET PO SCH (22:23)
[2019-01-10] MEDS: HEPARIN SOD (PORCINE) 5,000 UNIT/ML 1 ML VIAL SUBCUT SCH ×3 (05:56→21:53)
[2019-01-10] MEDS: GABAPENTIN 300 MG CAPSULE PO SCH ×3 (05:56→21:53)
--- NOTE | 2019-01-10 08:27 | PDOC PROGRESS REPORT ---
Subjective Progress Note for:: 01/10/19 Subjective:: No chest pain or difficulty with breathing. No fever or chills. No nausea or vomiting. No abdominal pain. Patient received 4 units humalog insulin along with standing scheduled Lantus 15 units last night with fasting accuchek at 69 mg /dl despite receiving diabetic snack at bedtime. Reason For Visit: DKA Physical Exam Vital Signs: Temp Pulse Resp BP Pulse Ox 97.5 F 79 16 133/75 H 95 01/10/19 07:28 01/10/19 07:28 01/10/19 07:28 01/10/19 07:28 01/10/19 07:28 Intake & Output 01/09/19 01/10/19 01/11/19 06:59 06:59 06:59 Intake Total 3659 1850 1000 Output Total 4025 3875 Balance - 1000 Weight 71.7 kg 68 kg Physical Exam: General appearance: PRESENT: no acute distress, well-developed, well-nourished Head exam: PRESENT: atraumatic, normocephalic Eye exam: PRESENT: conjunctiva pink. ABSENT: pallor, scleral icterus Ear exam: PRESENT: normal external ear exam Mouth exam: PRESENT: moist Respiratory exam: PRESENT: clear to auscultation dianne Cardiovascular exam: PRESENT: RRR. ABSENT: diastolic murmur, rubs, systolic murmur GI/Abdominal exam: PRESENT: normal bowel sounds, soft. ABSENT: distended, guarding, mass, organomegaly, rebound, tenderness Extremities exam: ABSENT: pedal edema Neurological exam: PRESENT: alert, awake, oriented to person, oriented to place, oriented to time, oriented to situation, CN II-XII grossly intact. ABSENT: motor sensory deficit Psychiatric exam: PRESENT: appropriate affect, normal mood. ABSENT: homicidal ideation, suicidal ideation Skin exam: PRESENT: dry, warm Results Laboratory Results: 01/09/19 03:56 01/09/19 03:56 Impressions: Abdomen/Pelvis CT 01/06/19 00:00 IMPRESSION: Massive bladder distention above the level of the umbilicus. Mild hydronephrosis and hydroureter. Head CT 01/06/19 00:00 IMPRESSION: NORMAL BRAIN CT WITHOUT CONTRAST. EVIDENCE OF ACUTE STROKE: NO. 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 Is this a current diagnosis for this admission?: Yes (3) Hypertension Qualifiers: Hypertension type: essential hypertension Qualified Code(s): I10 - Ess ential (primary) hypertension Is this a current diagnosis for this admission?: Yes (4) Hypercholesterolemia Is this a current diagnosis for this admission?: Yes - Time Time Spent with patient: 25-34 minutes Level of Care: IMCU Medications reviewed and adjusted accordingly: Yes Anticipated discharge: Home Within: Other - Inpatient Certification Based on my medical assessment, after consideration of the patient's comorbidities, presenting symptoms, or acuity I expect that the services needed warrant INPATIENT care.: Yes I certify that my determination is in accordance with my understanding of Medicare's requirements for reasonable and necessary INPATIENT services [42 CFR 412.3e].: Yes Medical Necessity: Significant Comorbidiites Make Outpatient Treatment Too Risky, Need Close Monitoring Due to Risk of Patient Decompensation, Need For Continuous Telemetry Monitoring, Need for IV Antibiotics, Risk of Complication if Not Cared For in Hospital, Risk of Diagnosis Which Will Require Inpatient Eval/Care/Monitoring Post Hospital Care: D/C Utility Worker Roller Shop Documentation - Plan Summary Plan Summary: decrease hs Lantus insulin to 12 units and change his hs sliding scale humalog insulin to lower dose range. Follow up on his culture report. Continue all other current medication management.
[2019-01-10] MEDS: PANTOPRAZOLE SODIUM 40 MG VIAL IV SCH ×2 (09:53→21:53)
[2019-01-10] MEDS: VENLAFAXINE HCL 25 MG TABLET PO SCH (09:53)
[2019-01-10] MEDS: INSULIN GLARGINE,HUM.REC.ANLOG 1,000 UNIT/10 ML VIAL SUBCUT SCH (10:03)
[2019-01-10] MEDS: NORMAL SALINE 1000 ML 1,000 ML IV PRN (11:15)
[2019-01-10] MEDS: INSULIN LISPRO 100 UNIT/ML 3 ML VIAL SUBCUT SCH ×3 (12:00→21:54)
[2019-01-10] MEDS: CEFTRIAXONE 1 GM/D5W RTU 1 GM/50 ML RTUPB IV SCH (12:01)
[2019-01-10] MEDS: ATORVASTATIN CALCIUM 80 MG TABLET PO SCH (21:53)
[2019-01-10] MEDS: TRAZODONE HCL 50 MG TABLET PO SCH (21:53)
[2019-01-10] MEDS ORDERED: INSULIN GLARGINE,HUM.REC.ANLOG 1,000 UNIT/10 ML VIAL SUBCUT SCH (22:00)
[2019-01-11] MEDS: INSULIN LISPRO 100 UNIT/ML 3 ML VIAL SUBCUT SCH ×3 (05:01→12:09)
[2019-01-11] MEDS: GABAPENTIN 300 MG CAPSULE PO SCH ×2 (05:36→13:31)
[2019-01-11] MEDS: HEPARIN SOD (PORCINE) 5,000 UNIT/ML 1 ML VIAL SUBCUT SCH ×2 (05:36→13:31)
[2019-01-11] MEDS: PANTOPRAZOLE SODIUM 40 MG VIAL IV SCH (09:22)
[2019-01-11] MEDS: VENLAFAXINE HCL 25 MG TABLET PO SCH (09:29)
[2019-01-11] MEDS: INSULIN GLARGINE,HUM.REC.ANLOG 1,000 UNIT/10 ML VIAL SUBCUT SCH (09:32)
[2019-01-11] MEDS: NORMAL SALINE 1000 ML 1,000 ML IV PRN (09:33)
[2019-01-11] MEDS: CEFTRIAXONE 1 GM/D5W RTU 1 GM/50 ML RTUPB IV SCH (11:27)
--- NOTE | 2019-01-11 15:46 | PDOC DISCHARGE SUMMARY ---
Impression - Admit/DC Date/PCP Admission Date/Primary Care Provider: 01/06/19 09:54 BRYSON SANCHEZ Discharge Date: 01/11/19 - Discharge Diagnosis (1) DKA (diabetic ketoacidoses) Is this a current diagnosis for this admission?: Yes 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 Is this a current diagnosis for this admission?: Yes (3) Hypertension Is this a current diagnosis for this admission?: Yes (4) Hypercholesterolemia Is this a current diagnosis for this admission?: Yes - Assessment Summary: Admitted for DKA with concern about possible underlying infectious process. His hyperglycemia did improve on insulin infusion and IV fluid support. He was treated with IV Rocephin. His urine and blood cultures were no growth after appropriate period of incubation. He will be discharge home on self administer insulin therapy. He will follow up in the office as instructed upon discharge. Patient will follow up with Dr. Pendleton, lab[employer], regarding insulin pump usage for his diabetes mellitus management. - Additional Information Resuscitation Status: Full Code Discharge Diet: Cardiac, Diabetic Discharge Activity: Activity As Tolerated Referrals: BRYSON SANCHEZ MD [Primary Care Provider] - 01/17/19 10:00 am Home Medications: Atorvastatin Calcium [Lipitor 80 mg Tablet] 80 mg PO QHS 01/06/19 Gabapentin [Neurontin 300 mg Capsule] 300 mg PO Q8 01/06/19 Glucagon,Human Recombinant [Glucagen] 1 dose INJ ASDIR PRN 01/06/19 Lisinopril 20 mg PO QHS 01/06/19 Omeprazole 40 mg PO DAILY 01/06/19 Trazodone HCl [Desyrel 50 mg Tablet] 50 mg PO QHS 01/06/19 Venlafaxine HCl 50 mg PO DAILY 01/06/19 Insulin Glargine,Hum.rec.anlog [Lantus Insulin 100 Unit/1 ml 10 ml] 12 unit SUBCUT QHS #0 unit 01/11/19 Insulin Glargine,Hum.rec.anlog [Lantus Insulin 100 Unit/1 ml 10 ml] 20 unit SUBCUT DAILY #0 unit 01/11/19 Insulin Lispro [Humalog Insulin (Lispro) 100 unit/mL] 0 - 12 unit SUBCUT ACHS unit 01/11/19 History of Present Illiness History of Present Illness: WOODY TORRES JR is a 43 year old male This is a 43-year-old patient of type 1 diabetes on insulin pump patient of Dr. Sanchez came to the emergency department since this morning 2:00 patient insulin pump is not working patient started feeling nausea vomiting abdominal discomfort Patient's check the blood sugar was running high came to the emergency department with patient's blood sugar was 660 with anion gap is 23 and CO2 is a 16 Patient start on insulin drip and IV fluid Patient's other blood work including lipase and AST and ALT was normal Patient is denied any chest pain to than any shortness of the breath Patient is denied any fever no chills pt is c/o all over body pain pt seen by dr phillips and start insulin pump but per pt and daughter his suger run high all time pt does not know how to operate pump d/w pt and daughter on bedside Hospital Course Hospital Course: Admitted for DKA with concern about possible underlying infectious process. His hyperglycemia did improve on insulin infusion and IV fluid support. He was t reated with IV Rocephin. His urine and blood cultures were no growth after appropriate period of incubation. He will be discharge home on self administer insulin therapy. He will follow up in the office as instructed upon discharge. Patient will follow up with Dr. Pendleton, [employer], regarding insulin pump usage for his diabetes mellitus management. Physical Exam Vital Signs: Temp Pulse Resp BP Pulse Ox 97.5 F 75 16 161/83 H 100 01/11/19 11:37 01/11/19 14:00 01/11/19 11:37 01/11/19 11:37 01/11/19 11:37 Intake & Output 01/10/19 01/11/19 01/12/19 06:59 06:59 06:59 Intake Total 1850 2990 776 Output Total 3875 1000 1200 Balance -2024 1989 - Weight 68 kg General appearance: PRESENT: no acute distress, well-developed, well-nourished Head exam: PRESENT: atraumatic, normocephalic Eye exam: PRESENT: conjunctiva pink. ABSENT: pallor, scleral icterus Ear exam: PRESENT: normal external ear exam Mouth exam: PRESENT: moist Respiratory exam: PRESENT: clear to auscultation dianne Cardiovascular exam: PRESENT: RRR. ABSENT: diastolic murmur, rubs, systolic murmur GI/Abdominal exam: PRESENT: normal bowel sounds, soft. ABSENT: distended, guarding, mass, organomegaly, rebound, tenderness Extremities exam: ABSENT: pedal edema Neurological exam: PRESENT: alert, awake, oriented to person, oriented to place, oriented to time, oriented to situation, CN II-XII grossly intact. ABSENT: motor sensory deficit Psychiatric exam: PRESENT: appropriate affect, normal mood. ABSENT: homicidal ideation, suicidal ideation Skin exam: PRESENT: dry, warm Results Laboratory Results: WBC 7.9 10^3/uL (4.0-10.5) 01/09/19 03:56 RBC 3.37 10^6/uL (4.35-5.55) L 01/09/19 03:56 Hgb 10.8 g/dL (13.5-17.0) L 01/09/19 03:56 Hct 31.2 % (37.9-51.0) L 01/09/19 03:56 MCV 93 fl (80-97) 01/09/19 03:56 MCH 32.1 pg (27.0-33.4) 01/09/19 03:56 MCHC 34.6 g/dL (32.0-36.0) 01/09/19 03:56 RDW 14.1 % (11.5-14.0) H 01/09/19 03:56 Plt Count 224 10^3/uL (150-450) 01/09/19 03:56 Lymph % (Auto) 32.3 % (13-45) 01/09/19 03:56 [place] % (Auto) 8.7 % (3-13) 01/09/19 03:56 Eos % (Auto) 8.7 % (0-6) H 01/09/19 03:56 Baso % (Auto) 0.7 % (0-2) 01/09/19 03:56 Absolute Neuts (auto) 3.9 10^3/uL (1.7-8.2) 01/09/19 03:56 Absolute Lymphs (auto) 2.6 10^3/uL (0.5-4.7) 01/09/19 03:56 Absolute Monos (auto) 0.7 10^3/uL (0.1-1.4) 01/09/19 03:56 Absolute Eos (auto) 0.7 10^3/uL (0.0-0.6) H 01/09/19 03:56 Absolute Basos (auto) 0.1 10^3/uL (0.0-0.2) 01/09/19 03:56 Seg Neutrophils % 49.6 % (42-78) 01/09/19 03:56 VBG pH 7.31 (7.30-7.42) 01/06/19 08:34 VBG pCO2 28.8 mmHg (35-63) L 01/06/19 08:34 VBG HCO3 14.2 mmol/L (20-32) L 01/06/19 08:34 VBG Base Excess -10.6 mmol/L 01/06/19 08:34 Sodium 144.0 mmol/L (137-145) 01/09/19 03:56 Potassium 3.8 mmol/L (3.6-5.0) 01/09/19 03:56 Chloride 111 mmol/L (98-107) H 01/09/19 03:56 Carbon Dioxide 26 mmol/L (22-30) 01/09/19 03:56 Anion Gap 7 (5-19) 01/09/19 03:56 BUN 9 mg/dL (7-20) 01/09/19 03:56 Creatinine 0.67 mg/dL (0.52-1.25) 01/09/19 03:56 Est GFR ( Amer) > 60 (>60) 01/09/19 03:56 Est GFR (Non-Af Amer) Cancelled 01/08/19 16:00 Est GFR (MDRD) Non-Af > 60 (>60) 01/09/19 03:56 Glucose 65 mg/dL (75-110) L 01/09/19 03:56 POC Glucose 244 mg/dL (70-110) H 01/11/19 11:30 Hemoglobin A1c % 10.3 % (4.7-6.0) H 01/08/19 00:37 Calcium 8.7 mg/dL (8.4-10.2) 01/09/19 03:56 Total Bilirubin 1.4 mg/dL (0.2-1.3) H 01/06/19 08:10 Direct Bilirubin 0.2 mg/dL (0.0-0.4) 01/06/19 08:10 Neonat Total Bilirubin Not Reportable 01/06/19 08:10 Neonat Direct Bilirubin Not Reportable 01/06/19 08:10 Neonat Indirect Bili Not Reportable 01/06/19 08:10 AST 28 U/L (17-59) 01/06/19 08:10 ALT 31 U/L (<50) 01/06/19 08:10 Alkaline Phosphatase 107 U/L (38-126) 01/06/19 08:10 Total Protein 6.8 g/dL (6.3-8.2) 01/06/19 08:10 Albumin 4.1 g/dL (3.5-5.0) 01/06/19 08:10 Lipase 24.0 U/L (23-300) 01/06/19 08:10 EGFR Cancelled 01/08/19 16:00 Urine Color STRAW 01/06/19 12:47 Urine Appearance CLEAR 01/06/19 12:47 Urine pH 5.0 (5.0-9.0) 01/06/19 12:47 Ur Specific [place] 1.024 01/06/19 12:47 Urine Protein NEGATIVE mg/dL (NEGATIVE) 01/06/19 12:47 Urine Glucose (UA) >=500 mg/dL (NEGATIVE) H 01/06/19 12:47 Urine Ketones 80 mg/dL (NEGATIVE) H 01/06/19 12:47 Urine Blood NEGATIVE (NEGATIVE) 01/06/19 12:47 Urine Nitrite NEGATIVE (NEGATIVE) 01/06/19 12:47 Urine Bilirubin NEGATIVE (NEGATIVE) 01/06/19 12:47 Urine Urobilinogen NEGATIVE mg/dL (<2.0) 01/06/19 12:47 Ur Leukocyte Esterase NEGATIVE (NEGATIVE) 01/06/19 12:47 Urine WBC (Auto) 0 /HPF 01/06/19 12:47 Urine RBC (Auto) 0 /HPF 01/06/19 12:47 Urine Mucus (Auto) RARE /LPF 01/06/19 12:47 Urine Ascorbic Acid NEGATIVE (NEGATIVE) 01/06/19 12:47 Impressions: Abdomen/Pelvis CT 01/06/19 00:00 IMPRESSION: Massive bladder distention above the level of the umbilicus. Mild hydronephrosis and hydroureter. Head CT 01/06/19 00:00 IMPRESSION: NORMAL BRAIN CT WITHOUT CONTRAST. EVIDENCE OF ACUTE STROKE: NO. Plan Health Concerns: Improve glycemic control and diabetes mellitus complications. Plan of Treatment: Maintain on basal Lantus Insulin and sliding scale humalog insulin coverage. Counseling done of medication and dietary restrictions compliance. Goals: HgbA1c less than 7.0%, reduce readmission risk, improve understanding and compliance with medical management. Stroke Is this a Stroke Patient?: No Acute Heart Failure - Is this a Heart Failure Patient?: No
[2019-01-11 16:34] VITALS: BP 132/76
== END 2019-01-11 17:01 | disposition home or self-care (01) | DRG 639 ==
LOC: ER 07:27 → EH 09:54 → 3W 11:31
PROVIDERS: ADMIT Internal Medicine Geriatric Medicine; ATTEND Internal Medicine Geriatric Medicine
DX: E10.10 Type 1 diabetes mellitus with ketoacidosis without coma (principal); I10 Essential (primary) hypertension; E78.00 Pure hypercholesterolemia, unspecified; E78.5 Hyperlipidemia, unspecified; F32.9 Major depressive disorder, single episode, unspecified; E86.0 Dehydration; K52.9 Noninfective gastroenteritis and colitis, unspecified; Z96.41 Presence of insulin pump (external) (internal); Z79.4 Long term (current) use of insulin; Z79.899 Other long term (current) drug therapy; Z88.7 Allergy status to serum and vaccine
CPT/HCPCS: 36415; 70450; 74176; 80048; 80053; 81001; 82803; 82962; 83036; 83690; 85025; 87040; 87077; 87086; 93005; 93010; 96361; 96374; 96375; 99285; C9113; J0696; J1644; J1815; J1885; J2270; J2405; J2550; J3010; J3480; J3490; J7030; J7050; J7120

== ENCOUNTER 2019-09-28 19:08 | Emergency (ER) | payer MEDICARE, BC, MEDICAID ==
[2019-09-28] MEDS ORDERED: IBUPROFEN 600 MG TABLET PO ONE (19:36)
--- NOTE | 2019-09-28 19:38 | ER Document Report ---
ED General - General Chief Complaint: Back Injury Stated Complaint: FALL SEVERE BACK PAIN Time Seen by Provider: 09/28/19 19:31 Primary Care Provider: BRYSON SANCHEZ MD [Primary Care Provider] - Follow up in 3-5 days Notes: Patient is a 43-year-old male with a history of diabetes who presents emergency department with a chief complaint back pain. Patient states that he was pulling a lawnmower with a riding lawnmower and ended up falling off on his back. Patient was able walk. States that the pain radiates down his left leg. Patient is a type I diabetic and currently has an insulin pump. States that he feels thirsty because his blood sugars are high. TRAVEL OUTSIDE OF THE [place] IN LAST 30 DAYS: No - Related Data Allergies/Adverse Reactions: Influenza A (H1N1)Vaccine 2008 * [Influenza A (H1N1)Vaccine 2008] Allergy (Verified 01/06/19 07:34) Past Medical History - Social History Smoking Status: Never Smoker Chew tobacco use (# tins/day): No Frequency of alcohol use: None Drug Abuse: None Family History: Reviewed & Not Pertinent Patient has homicidal ideation: No - Past Medical History Cardiac Medical History: Reports: Hx Hypercholesterolemia, Hx Hypertension Neurological Medical History: Denies: Hx Cerebrovascular Accident Endocrine Medical History: Reports: Hx Diabetes Mellitus Type 1, Hx Diabetes Mellitus Type 2 Renal/ Medical History: Denies: Hx Peritoneal Dialysis Psychiatric Medical History: Reports: Hx Depression Past Surgical History: Reports: Hx Appendectomy, Hx Orthopedic Surgery - left arm, Hx Tonsillectomy - Immunizations Hx Diphtheria, Pertussis, Tetanus Vaccination: Yes Review of Systems - Review of Systems Notes: REVIEW OF SYSTEMS: CONSTITUTIONAL : Denies recent illness. Denies recent unintentional weight loss. Denies fever, chills, or sweats. EENT: Denies eye, ear, throat, or mouth pain, discharge, or symptoms. Denies nasal or sinus congestion. CARDIOVASCULAR: Denies chest pain. RESPIRATORY: Denies shortness of breath, cough, congestion, difficulty breathing, or wheezing. GASTROINTESTINAL: Denies nausea, vomiting, and diarrhea. Denies abdominal pain. Denies constipation. GENITOURINARY: Denies difficulty urinating, burning, blood in urine, urgency or frequency. MUSCULOSKELETAL: See HPI. SKIN: Denies rash, itchiness, or lesions HEMATOLOGIC : Denies easy bruising or bleeding. LYMPHATIC: Denies swollen, painful, enlarged glands. NEUROLOGICAL: Denies no numbness or tingling denies weakness. Denies headache. Denies altered mental status. Denies alteration in speech. PSYCHIATRIC: Denies stress, anxiety, alteration in sleep patterns, or depression. All other systems reviewed and negative. Physical Exam - Vital signs Vitals: Temp Pulse Resp BP Pulse Ox 98.6 F 89 18 116/60 100 09/28/19 19:14 09/28/19 19:14 09/28/19 19:14 09/28/19 19:14 09/28/19 19:14 - Notes Notes: PHYSICAL EXAMINATION: GENERAL: Appears well, healthy, well-nourished, no acute distress. HEAD: Normocephalic, atraumatic. EYES: PERRL, conjunctiva normal, all extraocular movements intact, sclera nonicteric ENT: Moist mucous membranes. NECK: Supple, no noticeable swelling, redness, rash. Normal range of motion. LUNGS: Equal breath sounds bilaterally and clear to auscultation. No wheezes rales or rhonchi. CARDIOVASCULAR: S1-S2, regular rate, regular rhythm. Radial pulses 2+, normal. ABDOMEN: Normoactive bowel sounds. Soft, nontender, no guarding, no rebound tenderness, and no masses palpated. EXTREMITIES: Normal strength and range of motion, no pitting or edema. No cya nosis. NEUROLOGICAL: Moves all extremities upon command. Strength 5/5 in all extremities. PSYCH: Normal mood, normal affect. SKIN: Warm, dry. No rash, lesions, ulcerations noted. Normal skin turgor. BACK: Tenderness noted to bilateral back. Slight tenderness to lumbar spine. Course - Re-evaluation Re-evalutation: 09/28/19 19:38 Patient was able to give himself some insulin. We will recheck his blood sugar later. 09/28/19 22:03 Patient's blood sugar came down to 372. Patient's heart rate is normal and not tachycardic. I do not suspect patient is in diabetic ketoacidosis, as he appears well, other than the fact that he fell off a lawnmower. We will give him a dose of [place], lidocaine patch, and Toradol. He will follow-up with his primary care provider on Monday. X-ray is normal. No neurological deficits noted. Patient is able to walk. No loss of bladder or bowel function. Follow- up precautions were given. Verbal discharge instructions were given to the patient. They verbalized understanding. They are stable for discharge. - Vital Signs Vital signs: Temp Pulse Resp BP Pulse Ox 98.6 F 89 16 140/72 H 97 09/28/19 19:26 09/28/19 22:15 09/28/19 22:15 09/28/19 22:15 09/28/19 22:15 - Laboratory Laboratory results interpreted by me: 09/28/19 09/28/19 19:33 22:01 POC Glucose 529 H* 379 H Discharge - Discharge Clinical Impression: Back pain Qualifiers: Back pain location: low back pain Chronicity: acute Back pain laterality: left Sciatica presence: with sciatica Sciatica laterality: sciatica of left side Qualified Code(s): M54.42 - Lumbago with sciatica, left side Fall Qualifiers: Encounter type: initial encounter Qualified Code(s): W19.XXXA - Unspecified fall, initial encounter Condition: Stable Disposition: HOME, SELF-CARE Additional Instructions: You were seen today in the emergency department after falling off a lawnmower. Your x-ray was normal did not show any fractures. Please follow-up with your primary care provider in regards to this visit. Only take the pain medication if you are in extreme pain. Make sure you are still walking. Prescriptions: Lidocaine [Lidoderm 5% (700 mg) Transdermal Patch] 1 patch TP DAILY PRN #10 adh..patch PRN Reason: Tramadol HCl [Ultram 50 mg Tablet] 50 mg PO Q6HP PRN #6 tablet PRN Reason: Referrals: BRYSON SANCHEZ MD [Primary Care Provider] - Follow up in 3-5 days
--- NOTE | 2019-09-28 20:14 | RADIOLOGY REPORT (SQ) ---
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 NUMBER OF VIEWS: 5 TECHNIQUE: Frontal, lateral, and oblique radiographs were obtained LIMITATIONS: None. FINDINGS: For the purposes of this examination, there are small riblets at L1. L1-L5 are in alignment. Vertebral body and intervertebral disc heights are well-maintained. No acute fracture or malalignment is appreciated. Oblique images reveal no evidence of spondylolysis. IMPRESSION: No osseous anomaly. copyright 2010 [employer]- All Rights Reserved
[2019-09-28] MEDS ORDERED: KETOROLAC TROMETHAMINE 60 MG/2 ML SDV IM ONE (22:02)
[2019-09-28] MEDS ORDERED: HYDROCODONE/ACETAMINOPHEN 5-325 MG TABLET PO ONE (22:02)
[2019-09-28] MEDS ORDERED: LIDOCAINE 5% (700 MG) TRANSDERMAL ADH..PATCH TP ONE (22:02)
[2019-09-28 23:01] VITALS: BP 140/72
== END 2019-09-28 22:15 | disposition home or self-care (01) ==
LOC: ER 19:08
DX: M54.42 Lumbago with sciatica, left side (principal); M54.9 Dorsalgia, unspecified; M79.605 Pain in left leg; R63.1 Polydipsia; W19.XXXA Unspecified fall, initial encounter; E10.9 Type 1 diabetes mellitus without complications; Z79.4 Long term (current) use of insulin; Z96.41 Presence of insulin pump (external) (internal); Z88.8 Allergy status to other drugs, medicaments and biological substances; I10 Essential (primary) hypertension
CPT/HCPCS: 99283; 96372; 82962; 72110; J1885; A9270 ×2

== ENCOUNTER 2019-10-10 15:36 | Inpatient (IN) | payer BC, MEDICARE, MEDICAID ==
[2019-10-10] MEDS ORDERED: NORMAL SALINE 1000 ML 1,000 ML IV ONE ×2 (16:22)
--- NOTE | 2019-10-10 16:22 | ER Document Report ---
ED Medical Screen (RME) - General Chief Complaint: High Blood Sugar Stated Complaint: HIGH BLOOD SUGAR Time Seen by Provider: 10/10/19 16:16 Primary Care Provider: BRYSON SANCHEZ MD [Primary Care Provider] - Follow up as needed Mode of Arrival: Wheelchair Information source: Patient Notes: 43-year-old male presented to ED for elevated blood sugar. He is a type I diabetic. He states that his Accu check in the emergency room was 490 something. 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 He states he just knew that his blood sugar was over 600 last night and he gave himself 15units insulin. He states he takes his sleeping medicine because he cannot see sleep and it is so strong it makes him sleep too soundly. He states 2 hours after giving himself 15 units insulin his sugar was still over 600. Supposed to be on antibiotics but he has not received his antibiotics yet he states he has a large open wound on his right heel he states he came in here for the wound but he has not started the antibiotic since then. He is waiting for antibiotics to come in from his mail order pharmacy. I have greeted and performed a rapid initial assessment of this patient. A comprehensive ED assessment and evaluation of the patient, analysis of test results and completion of medical decision making process will be conducted by an additional ED providers. TRAVEL OUTSIDE OF THE [place] IN LAST 30 DAYS: No - Related Data Allergies/Adverse Reactions: Influenza A (H1N1)Vaccine 2008 * [Influenza A (H1N1)Vaccine 2008] Allergy (Verified 01/06/19 07:34) Past Medical History - Past Medical History Cardiac Medical History: Reports: Hx Hypercholesterolemia, Hx Hypertension Neurological Medical History: Denies: Hx Cerebrovascular Accident Endocrine Medical History: Reports: Hx Diabetes Mellitus Type 1, Hx Diabetes Mellitus Type 2 Renal/ Medical History: Denies: Hx Peritoneal Dialysis Psychiatric Medical History: Reports: Hx Depression Past Surgical History: Reports: Hx Appendectomy, Hx Orthopedic Surgery - left arm, Hx Tonsillectomy - Immunizations Hx Diphtheria, Pertussis, Tetanus Vaccination: Yes Physical Exam - Vital signs Vitals: Temp Pulse Resp BP Pulse Ox 98.6 F 94 18 118/63 100 10/10/19 15:43 10/10/19 15:43 10/10/19 15:43 10/10/19 15:43 10/10/19 15:43 Course - Vital Signs Vital signs: Temp Pulse Resp BP Pulse Ox 98.6 F 94 18 118/63 100 10/10/19 15:43 10/10/19 15:43 10/10/19 15:43 10/10/19 15:43 10/10/19 15:43 Doctor's Discharge - Discharge Referrals: BRYSON SANCHEZ MD [Primary Care Provider] - Follow up as needed
[2019-10-10 17:06] LABS: ABSOLUTE BASOPHILS # (AUTO) 0.1 10^3/uL (0.0-0.2); ABSOLUTE LYMPHOCYTES (AUTO) 1.1 10^3/uL (0.5-4.7); ABSOLUTE MONOCYTES (AUTO) 0.5 10^3/uL (0.1-1.4); ABSOLUTE NEUT (AUTO) 7.9 10^3/uL (1.7-8.2); BASOPHILS % (AUTO) 0.7 % (0-2); EOSINOPHILS % (AUTO) 0.1 % (0-6); HEMATOCRIT 42.3 % (37.9-51.0); HEMOGLOBIN 14.1 g/dL (13.5-17.0); LYMPHOCYTES % (AUTO) 11.5 % (13-45); MEAN CORPUSCULAR HEMOGLOBIN 31.8 pg (27.0-33.4); MEAN CORPUSCULAR HGB CONC 33.3 g/dL (32.0-36.0); MEAN CORPUSCULAR VOLUME 96 fl (80-97); PLATELET COUNT 350 10^3/uL (150-450); RED BLOOD COUNT 4.42 10^6/uL (4.35-5.55); RED CELL DISTRIBUTION WIDTH 14.1 % (11.5-14.0); SEGMENTED NEUTROPHILS % (AUTO) 82.7 % (42-78); TOTAL CELLS COUNTED % (AUTO) 100 %; WHITE BLOOD COUNT 9.5 10^3/uL (4.0-10.5)
[2019-10-10 17:09] LABS: VENOUS BLOOD BASE EXCESS -7.4 mmol/L; VENOUS BLOOD HCO3 20.7 mmol/L (20-32); VENOUS BLOOD PCO2 51.9 mmHg (35-63); VENOUS BLOOD PH 7.22 (7.30-7.42)
[2019-10-10 17:30] LABS: ALBUMIN 4.8 g/dL (3.5-5.0); ALKALINE PHOSPHATASE 125 U/L (38-126); ANION GAP 17 (5-19); ASPARTATE AMINO TRANSFERASE 30 U/L (17-59); BLOOD UREA NITROGEN 35 mg/dL (7-20); CARBON DIOXIDE 20 mmol/L (22-30); CHLORIDE 94 mmol/L (98-107); CREATINE KINASE 83 U/L (55-170); GLUCOSE 393 mg/dL (75-110); POTASSIUM 5.2 mmol/L (3.6-5.0); TOTAL PROTEIN 8.4 g/dL (6.3-8.2)
[2019-10-10 17:34] LABS: INTERNATIONAL RATION (INR) 0.95; PROTHROMBIN TIME 12.9 SEC (11.4-15.4)
--- NOTE | 2019-10-10 17:34 | ER Document Report ---
ED Blood Sugar Problem - General Chief Complaint: High Blood Sugar Stated Complaint: HIGH BLOOD SUGAR Time Seen by Provider: 10/10/19 16:16 Primary Care Provider: BRYSON SANCHEZ MD [Primary Care Provider] - Follow up as needed Mode of Arrival: Wheelchair Notes: HPI: 43-year-old male who presents today stating that last evening he had a very elevated blood sugar. Patient has an insulin pump. 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 Sanchez here. Patient states he felt a little nauseous and did have vomiting x2. He denies any headache, neck pain, chest pain, abdominal pain, weakness or numbness. ROS: See HPI All other review of systems reviewed and otherwise negative Reviewed vital signs and nursing note as charted by RN. PHYSICAL EXAM: CONSTITUTIONAL: Alert and oriented and responds appropriately to questions. Well-appearing; well-nourished HEAD: Normocephalic; atraumatic EYES: PERRL; Conjunctivae clear, sclerae non-icteric ENT: Normal nose; no rhinorrhea; moist mucous membranes NECK: Supple without meningismus; non-tender; no cervical lymphadenopathy, no masses CARD: Regular rate and rhythm; no murmurs; symmetric distal pulses RESP: Normal chest excursion without splinting or tachypnea; breath sounds clear and equal bilaterally ABD/GI: Normal bowel sounds; non-distended; soft, non-tender BACK: The back appears normal and is non-tender to palpation EXT: Normal ROM in all joints; non-tender to palpation; no edema SKIN: No acute lesions noted NEURO: CN 2-12 intact; 5/5 bilateral upper and lower extremity strength with sensation intact to light touch PSYCH: The patient's mood and manner are appropriate. Grooming and personal hygiene are appropriate. TRAVEL OUTSIDE OF THE [place] IN LAST 30 DAYS: No - Related Data Allergies/Adverse Reactions: Influenza A (H1N1)Vaccine 2008 * [Influenza A (H1N1)Vaccine 2008] Allergy (Verified 10/10/19 16:17) Home Medications: novolog insulin pump Past Medical History - General Information source: Patient - Social History Smoking Status: Never Smoker Chew tobacco use (# tins/day): No Frequency of alcohol use: None Drug Abuse: None Family History: Reviewed & Not Pertinent Patient has homicidal ideation: No - Past Medical History Cardiac Medical History: Reports: Hx Hypercholesterolemia, Hx Hypertension Neurological Medical History: Denies: Hx Cerebrovascular Accident Endocrine Medical History: Reports: Hx Diabetes Mellitus Type 1, Hx Diabetes Mellitus Type 2 Renal/ Medical History: Denies: Hx Peritoneal Dialysis Psychiatric Medical History: Reports: Hx Depression Past Surgical History: Reports: Hx Appendectomy, Hx Orthopedic Surgery - left arm, Hx Tonsillectomy - Immunizations Hx Diphtheria, Pertussis, Tetanus Vaccination: Yes Physical Exam - Vital signs Vitals: Temp Pulse Resp BP Pulse Ox 98.6 F 94 18 118/63 100 10/10/19 15:43 10/10/19 15:43 10/10/19 15:43 10/10/19 15:43 10/10/19 15:43 Course - Re-evaluation Re-evalutation: Given the history and physical examination, we will obtain basic labs, electrolytes, venous blood gas, provide fluids, and reassess. We will turn off the patient's insulin pump as I believe it is malfunctioning. Every hour Accu- Cheks have been ordered. 10/10/19 17:33 Venous blood gas as recorded. Concern about DKA. 10/10/19 17:50 EKG shows heart of 95, normal sinus rhythm, poor R wave progression, no obvious ST elevation or depression. I believe that the patient meets criteria for diabetic ketoacidosis. We will start the patient on insulin infusion. Potassium as recorded. I would not provide a potassium replacement infusion at this time until potassium rechecked. I have relayed this to the admitting provider. - Vital Signs Vital signs: Temp Pulse Resp BP Pulse Ox 98.6 F 94 13 119/57 L 100 10/10/19 15:43 10/10/19 15:43 10/10/19 17:01 10/10/19 17:01 10/10/19 17:01 - Laboratory Result Diagrams: 10/10/19 16:43 10/10/19 16:43 Laboratory results interpreted by me: 10/10/19 10/10/19 10/10/19 16:43 16:43 16:43 RDW 14.1 H Lymph % (Auto) 11.5 L Seg Neutrophils % 82.7 H VBG pH 7.22 L Sodium 130.5 L Potassium 5.2 H Chloride 94 L Carbon Dioxide 20 L BUN 35 H Glucose 393 H POC Glucose Total Protein 8.4 H 10/10/19 17:39 RDW Lymph % (Auto) Seg Neutrophils % VBG pH Sodium Potassium Chloride Carbon Dioxide BUN Glucose POC Glucose 282 H Total Protein Critical Care Note - Critical Care Note Total time excluding time spent on procedures (mins): 35 Discharge - Discharge Clinical Impression: Diabetic ketoacidosis Qualifiers: Diabetes mellitus type: type 1 Diabetes mellitus complication detail: without coma Qualified Code(s): E10.10 - Type 1 diabetes mellitus with ketoacidosis w ithout coma Vomiting Qualifiers: Vomiting type: unspecified Vomiting Intractability: non-intractable Nausea pr esence: with nausea Qualified Code(s): R11.2 - Nausea with vomiting, unspecified Condition: Good Disposition: HOME, SELF-CARE Admitting Provider: [facility] Unit Admitted: [facility] Referrals: BRYSON SANCHEZ MD [Primary Care Provider] - Follow up as needed
[2019-10-10] MEDS ORDERED: NORMAL SALINE 100 ML with INSULIN REGULAR, HUMAN 100 UNIT IV PRN ×2 (17:45)
[2019-10-10] MEDS ORDERED: DEXTROSE 40% GEL 15 GM TUBE PO PRN ×2 (17:45)
[2019-10-10] MEDS ORDERED: DEXTROSE 50%-WATER 25 GM/50 ML DISP.SYRIN IV PRN ×2 (17:45)
[2019-10-10] MEDS ORDERED: GLUCAGON,HUMAN RECOMB 1 MG INJ IM PRN (17:45)
[2019-10-10] MEDS ORDERED: INSULIN REG, HUMAN 100 UNIT/ML 3 ML VIAL (PYX) ONE (18:29)
[2019-10-10 19:01] LABS: APPEARANCE,URINE CLEAR; BILIRUBIN,URINE NEGATIVE (NEGATIVE); COLOR,URINE YELLOW; GLUCOSE, URINE >=500 mg/dL (NEGATIVE); KETONES,URINE 80 mg/dL (NEGATIVE); LEUKOCYTE ESTERASE,URINE NEGATIVE (NEGATIVE); NITRITE,URINE NEGATIVE (NEGATIVE); PROTEIN,URINE NEGATIVE (NEGATIVE); URINE SPECIFIC GRAVITY 1.022; UROBILINOGEN,URINE NEGATIVE mg/dL (<2.0)
[2019-10-10] MEDS: NORMAL SALINE 1000 ML 1,000 ML IV PRN (23:22)
[2019-10-11] MEDS ORDERED: INSULIN GLARGINE,HUM.REC.ANLOG 1,000 UNIT/10 ML VIAL (PYX) SUBCUT ONE ×2 (06:20→06:30)
[2019-10-11] MEDS: INSULIN LISPRO 100 UNIT/ML 3 ML VIAL SUBCUT SCH ×4 (08:23→22:15)
[2019-10-11] MEDS: ONDANSETRON HCL INJ/PF 4 MG/2 ML SDV IV PRN ×2 (08:58→20:39)
[2019-10-11] MEDS: NORMAL SALINE 1000 ML 1,000 ML IV PRN ×2 (09:02→22:36)
[2019-10-11] MEDS ORDERED: MORPHINE SULFATE 10 MG/ML INJ IV ONE (09:30)
--- NOTE | 2019-10-11 15:26 | PDOC H&P ---
History of Present Illness Admission Date/PCP: 10/10/19 18:21 RBYSON SANCHEZ Patient complains of: Elevated blood glucose, vomiting History of Present Illness: WOODY TORRES JR is a 43 year old male known to my practice who presented to the ED after failed attempt at controlling his blood glucose level. Patient has history of diabetes mellitus type 2 on insulin pump therapy. He reported entanglement of his pump cord with machinery that he was using on his yard work. He subsequently found his blood glucose level over 600 mg/dl same evening. Patient reported that he followed instruction on how to deal with such situation with changing his infusion site, self administration of insulin and increase water intake. Patient reported that despite these intervention his blood glucose was over 400 mg/dL following morning with associated vomiting necessitating his family insistence on him to come to the ED. In the ED, his initial evaluation did revealed significant hyperglycemia with laboratory indices suggestive of ongoing DKA event. He was managed appropriately and advised hospitalization. His morbidities are as listed below. Past Medical History Cardiac Medical History: Reports: Hyperlipidema, Hypertension Endocrine Medical History: Reports: Diabetes Mellitus Type 1, Diabetes Mellitus Type 2 Psychiatric Medical History: Reports: Depression Past Surgical History Past Surgical History: Reports: Appendectomy, Orthopedic Surgery - left arm, Tonsillectomy Social History Smoking Status: Never Smoker Electronic Cigarette use?: No Frequency of Alcohol Use: None Hx Recreational Drug Use: No Drugs: None Hx Prescription Drug Abuse: No - Advance Directive Resuscitation Status: Full Code Family History Family History: Reviewed & Not Pertinent Parental Family History Reviewed: Yes Children Family History Reviewed: Yes Sibling(s) Family History Reviewed.: Yes Medication/Allergy Home Medications: Atorvastatin Calcium [Lipitor 80 mg Tablet] 80 mg PO QHS 01/06/19 Gabapentin [Neurontin 300 mg Capsule] 300 mg PO Q8 01/06/19 Lisinopril 20 mg PO QHS 01/06/19 Omeprazole 40 mg PO QAM 01/06/19 Trazodone HCl [Desyrel 50 mg Tablet] 50 mg PO QHS 01/06/19 Venlafaxine HCl 50 mg PO DAILY 01/06/19 Aspirin [Ecotrin 81 mg EC Tablet] 81 mg PO DAILY 10/10/19 Bromelains/Melatonin/[id number] [Midnite Pm Chewable Tablet] 1 each PO QHS 10/10/19 Insulin Aspart [Novolog Insulin (Aspart) 100 unit/mL] 0 units PUMP ASDIR PRN 10/10/19 Multivitamin [Tab-A-Bin (Multiple Vitamin) Tablet] 1 tab PO DAILY 10/10/19 Tizanidine HCl [Zanaflex 4 Mg Tablet] 4 mg PO TIDP PRN 10/10/19 Allergies/Adverse Reactions: Influenza A (H1N1)Vaccine 2008 * [Influenza A (H1N1)Vaccine 2008] Allergy (Verified 10/10/19 16:17) Review of Systems Constitutional: PRESENT: weakness. ABSENT: chills, fever(s), headache(s), weight gain, weight loss Eyes: ABSENT: visual disturbances Ears: ABSENT: hearing changes Cardiovascular: ABSENT: chest pain, dyspnea on exertion, edema, orthropnea, palpitations Respiratory: ABSENT: cough, hemoptysis Gastrointestinal: PRESENT: nausea, vomiting. ABSENT: abdominal pain, constipation, diarrhea, hematemesis, hematochezia Genitourinary: ABSENT: dysuria, hematuria Musculoskeletal: ABSENT: joint swelling Integumentary: ABSENT: rash, wounds Neurological: ABSENT: abnormal gait, abnormal speech, confusion, dizziness, focal weakness, syncope Psychiatric: ABSENT: anxiety, depression, homidical ideation, suicidal ideation Endocrine: ABSENT: cold intolerance, heat intolerance, menstrual abnormalities, polydipsia, polyuria Hematologic/Lymphatic: ABSENT: easy bleeding, easy bruising, lymphadenopathy Physical Exam Vital Signs: Temp Pulse Resp BP Pulse Ox 98.1 F 94 12 124/61 100 10/11/19 12:00 10/11/19 12:00 10/11/19 12:00 10/11/19 12:00 10/11/19 12:00 Intake & Output 10/10/19 10/11/19 10/12/19 06:59 06:59 06:59 Intake Total 2009 1087 Output Total 1425 800 Balance 585 287 Weight 65.5 kg General appearance: PRESENT: no acute distress Head exam: PRESENT: atraumatic, normocephalic Eye exam: PRESENT: conjunctiva pink, EOMI, PERRLA. ABSENT: scleral icterus Ear exam: PRESENT: normal external ear exam Mouth exam: PRESENT: moist, tongue midline Neck exam: PRESENT: full ROM. ABSENT: carotid bruit, JVD, lymphadenopathy, thyromegaly Cardiovascular exam: PRESENT: RRR, +S1, +S2. ABSENT: diastolic murmur, rubs, systolic murmur Pulses: PRESENT: normal dorsalis pedis pul, +2 pedal pulses bilateral Vascular exam: PRESENT: normal capillary refill. ABSENT: pallor GI/Abdominal exam: PRESENT: normal bowel sounds, soft. ABSENT: distended, guarding, mass, organolmegaly, rebound, tenderness Rectal exam: PRESENT: deferred Extremities exam: ABSENT: pedal edema Musculoskeletal exam: PRESENT: deformity Neurological exam: PRESENT: alert, awake, oriented to person, oriented to place, oriented to time, oriented to situation, CN II-XII grossly intact. ABSENT: motor sensory deficit Psychiatric exam: PRESENT: appropriate affect, normal mood. ABSENT: homicidal ideation, suicidal ideation Skin exam: PRESENT: dry, warm. ABSENT: cyanosis, intact - laceration wound on sole of left foot from recent injury at home., rash Results Laboratory Results: 10/10/19 16:43 10/10/19 16:43 10/10/19 10/10/19 10/10/19 16:43 16:43 16:43 WBC 9.5 RBC 4.42 Hgb 14.1 Hct 42.3 MCV 96 MCH 31.8 MCHC 33.3 RDW 14.1 H Plt Count 350 Seg Neutrophils % 82.7 H VBG pH 7.22 L VBG pCO2 51.9 VBG HCO3 20.7 VBG Base Excess -7.4 Sodium 130.5 L Potassium 5.2 H Chloride 94 L Carbon Dioxide 20 L Anion Gap 17 BUN 35 H Creatinine 1.11 Est GFR ( Amer) > 60 Glucose 393 H Lactic Acid Calcium 10.0 Total Bilirubin 1.0 AST 30 Alkaline Phosphatase 125 Total Protein 8.4 H Albumin 4.8 Urine Color Urine Appearance Urine pH Ur Specific [place] Urine Protein Urine Glucose (UA) Urine Ketones Urine Blood Urine Nitrite Ur Leukocyte Esterase Urine WBC (Auto) 10/10/19 10/10/19 10/10/19 16:43 18:48 20:30 WBC RBC Hgb Hct MCV MCH MCHC RDW Plt Count Seg Neutrophils % VBG pH VBG pCO2 VBG HCO3 VBG Base Excess Sodium Potassium Chloride Carbon Dioxide Anion Gap BUN Creatinine Est GFR ( Amer) Glucose Lactic Acid 1.5 1.5 Calcium Total Bilirubin AST Alkaline Phosphatase Total Protein Albumin Urine Color YELLOW Urine Appearance CLEAR Urine pH 5.0 Ur Specific [place] 1.022 Urine Protein NEGATIVE Urine Glucose (UA) >=500 H Urine Ketones 80 H Urine Blood NEGATIVE Urine Nitrite NEGATIVE Ur Leukocyte Esterase NEGATIVE Urine WBC (Auto) 0 10/10/19 23:32 WBC RBC Hgb Hct MCV MCH MCHC RDW Plt Count Seg Neutrophils % VBG pH VBG pCO2 VBG HCO3 VBG Base Excess Sodium Potassium Chloride Carbon Dioxide Anion Gap BUN Creatinine Est GFR ( Amer) Glucose Lactic Acid 1.7 Calcium Total Bilirubin AST Alkaline Phosphatase Total Protein Albumin Urine Color Urine Appearance Urine pH Ur Specific [place] Urine Protein Urine Glucose (UA) Urine Ketones Urine Blood Urine Nitrite Ur Leukocyte Esterase Urine WBC (Auto) 10/10/19 16:43 Creatine Kinase 83 Assessment & Plan - Diagnosis (1) DKA (diabetic ketoacidoses) Qualifiers: Diabetes mellitus type: type 1 Diabetes mellitus complication detail: with out coma Qualified Code(s): E10.10 - Type 1 diabetes mellitus with ketoac idosis without coma Is this a current diagnosis for this admission?: Yes Plan: See admitting attending physician orders for details. (2) Vomiting Qualifiers: Vomiting type: unspecified Vomiting Intractability: non-intractable Nausea presence: with nausea Qualified Code(s): R11.2 - Nausea with vomiting, unspecified Is this a current diagnosis for this admission?: Yes Plan: See admitting attending physician orders for details. (3) Diabetes mellitus type 2 with complications Is this a current diagnosis for this admission?: Yes Plan: See admitting attending physician orders for details. (4) Injury of foot, left Qualifiers: Encounter type: subsequent encounter Qualified Code(s): S99.922D - Unspecified injury of left foot, subsequent encounter Is this a current diagnosis for this admission?: Yes Plan: See admitting attending physician orders for details. (5) Hypertension Qualifiers: Hypertension type: essential hypertension Qualified Code(s): I10 - Essential (primary) hypertension Is this a current diagnosis for this admission?: Yes Plan: See admitting attending physician orders for details. (6) Hypercholesterolemia Is this a current diagnosis for this admission?: Yes Plan: See admitting attending physician orders for details. (7) Persistent insomnia Is this a current diagnosis for this admission?: Yes Plan: See admitting attending physician orders for details. (8) Depression Is this a current diagnosis for this admission?: Yes Plan: See admitting attending physician orders for details. - Time Time Spent: 50 to 70 Minutes Medications reviewed and adjusted accordingly: Yes Anticipated Discharge Disposition: Home, Self Care Anticipated Discharge Timeframe: within 72 hours - Inpatient Certification Based on my medical assessment, after consideration of the patient's comorbidities, presenting symptoms, or acuity I expect that the services needed warrant INPATIENT care.: Yes I certify that my determination is in accordance with my understanding of Medicare's requirements for reasonable and necessary INPATIENT services [42 CFR 412.3e].: Yes Medical Necessity: Significant Comorbidiites Make Outpatient Treatment Too Risky, Need Close Monitoring Due to Risk of Patient Decompensation, Need For IV Fluids, Need For Continuous Telemetry Monitoring, Risk of Complication if Not Cared For in Hospital, Risk of Diagnosis Which Will Require Inpatient Eval/Care/Monitoring Post Hospital Care: D/C Customer Relations Advisor Documentation - Plan Summary Plan Summary: See admitting attending physician orders for details.
--- NOTE | 2019-10-11 16:28 | EKG REPORT ---
SEVERITY:- BORDERLINE ECG - SINUS RHYTHM BORDERLINE LEFT AXIS DEVIATION BORDERLINE R WAVE PROGRESSION, ANTERIOR LEADS : Confirmed by: Lalito Greco MD 11-Oct-2019 16:27:36
[2019-10-11] MEDS: INSULIN GLARGINE,HUM.REC.ANLOG 1,000 UNIT/10 ML VIAL SUBCUT SCH (17:47)
[2019-10-11] MEDS: ENOXAPARIN SODIUM INJ 40 MG/0.4 ML DISP.SYRIN SUBCUT SCH (17:48)
--- NOTE | 2019-10-11 20:35 | RADIOLOGY REPORT (SQ) ---
XR CHEST 2 VIEWS HISTORY: DKA with vomiting. COMPARISON: None. FINDINGS: The heart size is within normal limits. There is no pulmonary vascular congestion. No consolidation, pleural effusion, or pneumothorax is seen. Fixation of the left humerus is partially visualized. IMPRESSION: No evidence of acute cardiopulmonary disease.
[2019-10-11] MEDS ORDERED: (PENDING PHARMACY ID) (Lisinopril [Lisinopril] 20 MG) PO SCH (22:00)
[2019-10-11] MEDS: GABAPENTIN 300 MG CAPSULE PO SCH (22:29)
[2019-10-11] MEDS: ATORVASTATIN CALCIUM 80 MG TABLET PO SCH (22:29)
[2019-10-11] MEDS: TRAZODONE HCL 50 MG TABLET PO SCH (22:30)
[2019-10-11] MEDS: LISINOPRIL 10 MG TABLET PO SCH (22:31)
[2019-10-12] MEDS: INSULIN GLARGINE,HUM.REC.ANLOG 1,000 UNIT/10 ML VIAL SUBCUT SCH ×2 (05:20→17:41)
[2019-10-12] MEDS: PANTOPRAZOLE SODIUM 40 MG TABLET.DR PO SCH (05:21)
[2019-10-12] MEDS: GABAPENTIN 300 MG CAPSULE PO SCH ×3 (05:21→21:45)
[2019-10-12 07:13] LABS: ABSOLUTE BASOPHILS # (AUTO) 0.1 10^3/uL (0.0-0.2); ABSOLUTE EOSINOPHILS # (AUTO) 0.1 10^3/uL (0.0-0.6); ABSOLUTE LYMPHOCYTES (AUTO) 1.9 10^3/uL (0.5-4.7); ABSOLUTE MONOCYTES (AUTO) 0.8 10^3/uL (0.1-1.4); ABSOLUTE NEUT (AUTO) 5.9 10^3/uL (1.7-8.2); BASOPHILS % (AUTO) 0.8 % (0-2); EOSINOPHILS % (AUTO) 1.5 % (0-6); HEMATOCRIT 36.2 % (37.9-51.0); LYMPHOCYTES % (AUTO) 21.7 % (13-45); MEAN CORPUSCULAR HEMOGLOBIN 31.5 pg (27.0-33.4); MEAN CORPUSCULAR HGB CONC 33.1 g/dL (32.0-36.0); MEAN CORPUSCULAR VOLUME 95 fl (80-97); MONOCYTES % (AUTO) 9.6 % (3-13); PLATELET COUNT 289 10^3/uL (150-450); RED BLOOD COUNT 3.81 10^6/uL (4.35-5.55); SEGMENTED NEUTROPHILS % (AUTO) 66.4 % (42-78); TOTAL CELLS COUNTED % (AUTO) 100 %; WHITE BLOOD COUNT 8.9 10^3/uL (4.0-10.5)
[2019-10-12 07:27] LABS: ALBUMIN 3.1 g/dL (3.5-5.0); ALKALINE PHOSPHATASE 78 U/L (38-126); ASPARTATE AMINO TRANSFERASE 19 U/L (17-59); BILIRUBIN,TOTAL 0.5 mg/dL (0.2-1.3); BLOOD UREA NITROGEN 12 mg/dL (7-20); CALCIUM 8.6 mg/dL (8.4-10.2); CARBON DIOXIDE 23 mmol/L (22-30); CHLORIDE 111 mmol/L (98-107); GLUCOSE 71 mg/dL (75-110); TOTAL PROTEIN 6.1 g/dL (6.3-8.2)
[2019-10-12 07:29] LABS: ANION GAP 4 (5-19)
[2019-10-12] MEDS: INSULIN LISPRO 100 UNIT/ML 3 ML VIAL SUBCUT SCH ×4 (08:09→21:45)
[2019-10-12] MEDS: NORMAL SALINE 1000 ML 1,000 ML IV PRN ×2 (08:15→19:02)
[2019-10-12] MEDS ORDERED: VENLAFAXINE HCL 50 MG PO SCH (10:00)
[2019-10-12] MEDS: ASPIRIN 81 MG TABLET, ENT COATED PO SCH (10:07)
[2019-10-12] MEDS: ENOXAPARIN SODIUM INJ 40 MG/0.4 ML DISP.SYRIN SUBCUT SCH (10:07)
[2019-10-12] MEDS: MULTIVITAMIN TABLET PO SCH (10:07)
[2019-10-12] MEDS: VENLAFAXINE HCL 25 MG TABLET PO SCH (10:08)
--- NOTE | 2019-10-12 15:47 | PDOC PROGRESS REPORT ---
Subjective Progress Note for:: 10/12/19 Subjective:: Patient was admitted for DKA he has no new complaints today Reason For Visit: DKA WITH VOMITING Physical Exam Vital Signs: Temp Pulse Resp BP Pulse Ox 97.6 F 79 12 147/75 H 100 10/12/19 11:19 10/12/19 11:19 10/12/19 11:19 10/12/19 11:19 10/12/19 11:19 Intake & Output 10/11/19 10/12/19 10/13/19 06:59 06:59 06:59 Intake Total 20097 156 Output Total 1425 2650 Balance 478 720 8897 Weight 65.5 kg 65.4 kg General appearance: PRESENT: no acute distress, well-developed, well-nourished Head exam: PRESENT: atraumatic, normocephalic Eye exam: PRESENT: conjunctiva pink, EOMI, PERRLA. ABSENT: scleral icterus Ear exam: PRESENT: normal external ear exam Mouth exam: PRESENT: moist, tongue midline Neck exam: PRESENT: full ROM. ABSENT: carotid bruit, JVD, lymphadenopathy, thyromegaly Cardiovascular exam: PRESENT: RRR. ABSENT: diastolic murmur, rubs, systolic murmur Pulses: PRESENT: normal dorsalis pedis pul, +2 pedal pulses bilateral Vascular exam: PRESENT: normal capillary refill GI/Abdominal exam: PRESENT: normal bowel sounds, soft. ABSENT: distended, guarding, mass, organolmegaly, rebound, tenderness Rectal exam: PRESENT: deferred Neurological exam: PRESENT: alert, awake, oriented to person, oriented to place, oriented to time, oriented to situation, CN II-XII grossly intact. ABSENT: motor sensory deficit Psychiatric exam: PRESENT: appropriate affect, normal mood. ABSENT: homicidal ideation, suicidal ideation Skin exam: PRESENT: dry, intact, warm. ABSENT: cyanosis, rash Results Laboratory Results: 10/12/19 06:52 10/12/19 06:52 10/12/19 10/12/19 06:52 06:52 WBC 8.9 RBC 3.81 L Hgb 12.0 L D Hct 36.2 L MCV 95 MCH 31.5 MCHC 33.1 RDW 14.0 Plt Count 289 Seg Neutrophils % 66.4 Sodium 137.8 Potassium 4.0 Chloride 111 H Carbon Dioxide 23 Anion Gap 4 L BUN 12 Creatinine 0.79 Est GFR ( Amer) > 60 Glucose 71 L Calcium 8.6 Total Bilirubin 0.5 AST 19 Alkaline Phosphatase 78 Total Protein 6.1 L Albumin 3.1 L 10/10/19 16:43 Creatine Kinase 83 Impressions: Chest X-Ray 10/11/19 00:00 IMPRESSION: No evidence of acute cardiopulmonary disease. Assessment & Plan - Diagnosis (1) DKA (diabetic ketoacidoses) Qualifiers: Diabetes mellitus type: type 1 Diabetes mellitus complication detail: without coma Qualified Code(s): E10.10 - Type 1 diabetes mellitus with ketoacidosis without coma Is this a current diagnosis for this admission?: Yes Plan: Continue present line of treatment - Time Time Spent with patient: 25-34 minutes Level of Care: IMCU Medications reviewed and adjusted accordingly: Yes Anticipated discharge: Home Anticipated DC Timeframe: within 36 hours
[2019-10-12] MEDS: LISINOPRIL 10 MG TABLET PO SCH (21:45)
[2019-10-12] MEDS: TRAZODONE HCL 50 MG TABLET PO SCH (21:45)
[2019-10-12] MEDS: ATORVASTATIN CALCIUM 80 MG TABLET PO SCH (21:45)
[2019-10-13] MEDS: PANTOPRAZOLE SODIUM 40 MG TABLET.DR PO SCH (05:03)
[2019-10-13] MEDS: GABAPENTIN 300 MG CAPSULE PO SCH ×3 (05:03→21:36)
[2019-10-13] MEDS: NORMAL SALINE 1000 ML 1,000 ML IV PRN ×2 (05:04→16:06)
[2019-10-13] MEDS: INSULIN GLARGINE,HUM.REC.ANLOG 1,000 UNIT/10 ML VIAL SUBCUT SCH ×2 (05:06→17:29)
[2019-10-13] MEDS: INSULIN LISPRO 100 UNIT/ML 3 ML VIAL SUBCUT SCH ×4 (08:09→21:37)
[2019-10-13] MEDS: MULTIVITAMIN TABLET PO SCH (09:41)
[2019-10-13] MEDS: ENOXAPARIN SODIUM INJ 40 MG/0.4 ML DISP.SYRIN SUBCUT SCH (09:41)
[2019-10-13] MEDS: VENLAFAXINE HCL 25 MG TABLET PO SCH (09:41)
[2019-10-13] MEDS: ASPIRIN 81 MG TABLET, ENT COATED PO SCH (09:41)
--- NOTE | 2019-10-13 13:09 | PDOC PROGRESS REPORT ---
Subjective Progress Note for:: 10/13/19 Subjective:: The blood sugar is fluctuating very widely between highs and low Reason For Visit: DKA WITH VOMITING Physical Exam Vital Signs: Temp Pulse Resp BP Pulse Ox 97.9 F 85 18 125/69 100 10/13/19 11:35 10/13/19 11:35 10/13/19 11:35 10/13/19 11:35 10/13/19 11:35 Intake & Output 10/12/19 10/13/19 10/14/19 06:59 06:59 06:59 Intake Total 3527 4753 Output Total 2650 9015 Balance 877 2078 Weight 65.4 kg 66.3 kg General appearance: PRESENT: no acute distress Eye exam: PRESENT: PERRLA Respiratory exam: PRESENT: clear to auscultation dianne Cardiovascular exam: PRESENT: +S1, +S2 GI/Abdominal exam: PRESENT: soft Neurological exam: PRESENT: alert Results Laboratory Results: 10/12/19 06:52 10/12/19 06:52 10/10/19 16:43 Creatine Kinase 83 Impressions: Chest X-Ray 10/11/19 00:00 IMPRESSION: No evidence of acute cardiopulmonary disease. Assessment & Plan - Diagnosis (1) DKA (diabetic ketoacidoses) Qualifiers: Diabetes mellitus type: type 1 Diabetes mellitus complication detail: without coma Qualified Code(s): E10.10 - Type 1 diabetes mellitus with ketoacidosis without coma Is this a current diagnosis for this admission?: Yes Plan: continue treatment - Time Time Spent with patient: 25-34 minutes Level of Care: IMCU Anticipated discharge: Home Anticipated DC Timeframe: within 36 hours
[2019-10-13] MEDS: LISINOPRIL 10 MG TABLET PO SCH (21:34)
[2019-10-13] MEDS: ATORVASTATIN CALCIUM 80 MG TABLET PO SCH (21:35)
[2019-10-13] MEDS: TRAZODONE HCL 50 MG TABLET PO SCH (21:36)
[2019-10-14] MEDS: NORMAL SALINE 1000 ML 1,000 ML IV PRN ×3 (01:12→22:06)
[2019-10-14] MEDS: PANTOPRAZOLE SODIUM 40 MG TABLET.DR PO SCH (06:23)
[2019-10-14] MEDS: INSULIN GLARGINE,HUM.REC.ANLOG 1,000 UNIT/10 ML VIAL SUBCUT SCH ×2 (06:23→17:54)
[2019-10-14] MEDS: GABAPENTIN 300 MG CAPSULE PO SCH ×3 (06:23→22:05)
[2019-10-14] MEDS: INSULIN LISPRO 100 UNIT/ML 3 ML VIAL SUBCUT SCH ×4 (08:25→20:59)
[2019-10-14] MEDS: ENOXAPARIN SODIUM INJ 40 MG/0.4 ML DISP.SYRIN SUBCUT SCH (09:27)
[2019-10-14] MEDS: ASPIRIN 81 MG TABLET, ENT COATED PO SCH (09:27)
[2019-10-14] MEDS: VENLAFAXINE HCL 25 MG TABLET PO SCH (09:27)
[2019-10-14] MEDS: MULTIVITAMIN TABLET PO SCH (09:27)
--- NOTE | 2019-10-14 20:46 | PDOC PROGRESS REPORT ---
Subjective Progress Note for:: 10/14/19 Subjective:: Patient had episodes of fasting hypoglycemia since his last clinical evaluation by myself. He claimed adequate oral intake. No chest pain or difficulty with breathing. No nausea, vomiting, or abdominal pain. No fever or chills. He denied any urinary symptoms. Reason For Visit: DKA WITH VOMITING Physical Exam Vital Signs: Temp Pulse Resp BP Pulse Ox 98.2 F 76 14 137/79 H 100 10/14/19 16:09 10/14/19 16:09 10/14/19 16:09 10/14/19 16:09 10/14/19 16:09 Intake & Output 10/13/19 10/14/19 10/15/19 06:59 06:59 06:59 Intake Total 4753 4004 1956 Output Total 2675 2875 1350 Balance 2078 1129 606 Weight 66.3 kg 66.1 kg General appearance: PRESENT: no acute distress Head exam: PRESENT: atraumatic, normocephalic Mouth exam: PRESENT: moist Respiratory exam: PRESENT: clear to auscultation dianne Cardiovascular exam: PRESENT: RRR, +S1, +S2. ABSENT: diastolic murmur, rubs, systolic murmur Vascular exam: ABSENT: pallor GI/Abdominal exam: PRESENT: normal bowel sounds, soft. ABSENT: distended, guarding, mass, organolmegaly, rebound, tenderness Extremities exam: ABSENT: pedal edema Neurological exam: PRESENT: alert, awake, oriented to person, oriented to place, oriented to time, oriented to situation, CN II-XII grossly intact. ABSENT: motor sensory deficit Psychiatric exam: PRESENT: appropriate affect, normal mood. ABSENT: homicidal ideation, suicidal ideation Skin exam: PRESENT: dry, warm, other - healung left foot lacerationand abrassion injury prior to admission.. ABSENT: cyanosis, rash Results Laboratory Results: 10/12/19 06:52 10/12/19 06:52 10/10/19 16:43 Creatine Kinase 83 Impressions: Chest X-Ray 10/11/19 00:00 IMPRESSION: No evidence of acute cardiopulmonary disease. Assessment & Plan - Diagnosis (1) DKA (diabetic ketoacidoses) Qualifiers: Diabetes mellitus type: type 1 Diabetes mellitus complication detail: without coma Qualified Code(s): E10.10 - Type 1 diabetes mellitus with ketoacidosis without coma Is this a current diagnosis for this admission?: Yes (2) Vomiting Qualifiers: Vomiting type: unspecified Vomiting Intractability: non-intractable Nausea presence: with nausea Qualified Code(s): R11.2 - Nausea with vomiting, unspecified Is this a current diagnosis for this admission?: Yes (3) Diabetes mellitus type 2 with complications Is this a current diagnosis for this admission?: Yes (4) Injury of foot, left Qualifiers: Encounter type: subsequent encounter Qualified Code(s): S99.922D - Unspecified injury of left foot, subsequent encounter Is this a current diagnosis for this admission?: Yes (5) Hypertension Qualifiers: Hypertension type: essential hypertension Qualified Code(s): I10 - Essential (primary) hypertension Is this a current diagnosis for this admission?: Yes (6) Hypercholesterolemia Is this a current diagnosis for this admission?: Yes (7) Persistent insomnia Is this a current diagnosis for this admission?: Yes (8) Depression Is this a current diagnosis for this admission?: Yes - Time Time Spent with patient: 25-34 minutes Level of Care: TELE Medications reviewed and adjusted accordingly: Yes Anticipated discharge: Home Anticipated DC Timeframe: within 24 hours - Inpatient Certification Based on my medical assessment, after consideration of the patient's comorbidities, presenting symptoms, or acuity I expect that the services needed warrant INPATIENT care.: Yes I certify that my determination is in accordance with my understanding of Medicare's requirements for reasonable and necessary INPATIENT services [42 CFR 412.3e].: Yes Medical Necessity: Significant Comorbidiites Make Outpatient Treatment Too Risky, Need Close Monitoring Due to Risk of Patient Decompensation, Need For IV Fluids, Need For Continuous Telemetry Monitoring, Risk of Complication if Not Cared For in Hospital, Risk of Diagnosis Which Will Require Inpatient Eval/Care/Monitoring Post Hospital Care: D/C Piping Design Specialist Documentation - Plan Summary Plan Summary: Continue current medication management. Emphasized need for bedtime diabetic snack consumption in view of his fasting hypoglycemia. Possible discharge home in next 24 hours was discussed with patient at bedside and in agreement with plan.
[2019-10-14] MEDS: ATORVASTATIN CALCIUM 80 MG TABLET PO SCH (22:05)
[2019-10-14] MEDS: LISINOPRIL 10 MG TABLET PO SCH (22:05)
[2019-10-14] MEDS: TRAZODONE HCL 50 MG TABLET PO SCH (22:06)
[2019-10-15] MEDS: INSULIN GLARGINE,HUM.REC.ANLOG 1,000 UNIT/10 ML VIAL SUBCUT SCH (06:34)
[2019-10-15] MEDS: GABAPENTIN 300 MG CAPSULE PO SCH (06:35)
[2019-10-15] MEDS: PANTOPRAZOLE SODIUM 40 MG TABLET.DR PO SCH (06:35)
[2019-10-15] MEDS: INSULIN LISPRO 100 UNIT/ML 3 ML VIAL SUBCUT SCH (07:31)
[2019-10-15 08:41] VITALS: BP 118/62
[2019-10-15] MEDS: MULTIVITAMIN TABLET PO SCH (09:12)
[2019-10-15] MEDS: VENLAFAXINE HCL 25 MG TABLET PO SCH (09:12)
[2019-10-15] MEDS: ASPIRIN 81 MG TABLET, ENT COATED PO SCH (09:12)
[2019-10-15] MEDS: ENOXAPARIN SODIUM INJ 40 MG/0.4 ML DISP.SYRIN SUBCUT SCH (09:25)
--- NOTE | 2019-10-15 11:24 | PDOC DISCHARGE SUMMARY ---
Impression - Admit/DC Date/PCP Admission Date/Primary Care Provider: 10/10/19 18:21 BRYSON SANCHEZ Discharge Date: 10/15/19 - Discharge Diagnosis (1) DKA (diabetic ketoacidoses) Is this a current diagnosis for this admission?: Yes (2) Vomiting Is this a current diagnosis for this admission?: Yes (3) Diabetes mellitus type 2 with complications Is this a current diagnosis for this admission?: Yes (4) Injury of foot, left Is this a current diagnosis for this admission?: Yes (5) Hypertension Is this a current diagnosis for this admission?: Yes (6) Hypercholesterolemia Is this a current diagnosis for this admission?: Yes (7) Persistent insomnia Is this a current diagnosis for this admission?: Yes (8) Depression Is this a current diagnosis for this admission?: Yes - Assessment Summary: Patient was admitted for DKA with hyperglycemia and low anion gap. He was managed with IV fluid and insulin infusion. His clinical condition did improved with resolution of his vomiting and hyperglycemia. He had episodes of hypoglycemia due to poor oral intake which did improve with his consumption of bedtime diabetic snack. He will be discharged home today with instruction to restart on his preadmission insulin pump regimen. He will be covered with Levemir 20 units prior to his discharge this morning. He will follow up in the office as instructed upon discharge. - Additional Information Resuscitation Status: Full Code Discharge Diet: Cardiac, Diabetic Discharge Activity: Activity As Tolerated Referrals: BRYSON SANCHEZ MD [Primary Care Provider] - 10/21/19 10:00 am Home Medications: Atorvastatin Calcium [Lipitor 80 mg Tablet] 80 mg PO QHS 01/06/19 Gabapentin [Neurontin 300 mg Capsule] 300 mg PO Q8 01/06/19 Lisinopril 20 mg PO QHS 01/06/19 Omeprazole 40 mg PO QAM 01/06/19 Trazodone HCl [Desyrel 50 mg Tablet] 50 mg PO QHS 01/06/19 Venlafaxine HCl 50 mg PO DAILY 01/06/19 Aspirin [Ecotrin 81 mg EC Tablet] 81 mg PO DAILY 10/10/19 Bromelains/Melatonin/[id number] [Midnite Pm Chewable Tablet] 1 each PO QHS 10/10/19 Insulin Aspart [Novolog Insulin (Aspart) 100 unit/mL] 0 units PUMP ASDIR PRN 10/10/19 Multivitamin [Tab-A-Bin (Multiple Vitamin) Tablet] 1 tab PO DAILY 10/10/19 Tizanidine HCl [Zanaflex 4 mg Tablet] 4 mg PO TIDP PRN 10/10/19 History of Present Illiness History of Present Illness: WOODY TORRES JR is a 43 year old male known to my practice who presented to the ED after failed attempt at controlling his blood glucose level. Patient has history of diabetes mellitus type 2 on insulin pump therapy. He reported entanglement of his pump cord with machinery that he was using on his yard work. He subsequently found his blood glucose level over 600 mg/dl same evening. Patient reported that he followed instruction on how to deal with such situation with changing his infusion site, self administration of insulin and increase water intake. Patient reported that despite these intervention his blood glucose was over 400 mg/dL following morning with associated vomiting necessitating his family insistence on him to come to the ED. In the ED, his initial evaluation did revealed significant hyperglycemia with laboratory indices suggestive of ongoing DKA event. He was managed appropriately and advised hospitalization. His morbidities are as listed below. Hospital Course Hospital Course: Patient was admitted for DKA with hyperglycemia and low anion gap. He was managed with IV fluid and insulin infusion. His clinical condition did improved with resolution of his vomiting and hyperglycemia. He had episodes of hypoglycemia due to poor oral intake which did improve with his consumption of bedtime diabetic snack. He will be discharged home today with instruction to restart on his preadmission insulin pump regimen. He will be covered with Levemir 20 units prior to his discharge this morning. He will follow up in the office as instructed upon discharge. Physical Exam Vital Signs: Temp Pulse Resp BP Pulse Ox 97.4 F 74 12 115/62 98 10/15/19 04:18 10/15/19 04:18 10/15/19 04:18 10/15/19 04:18 10/15/19 04:18 Intake & Output 10/14/19 10/15/19 10/16/19 06:59 06:59 06:59 Intake Total 4008 8803 Output Total 2349 7373 Balance 1129 -1899 Weight 66.1 kg 66 kg General appearance: PRESENT: no acute distress Head exam: PRESENT: atraumatic, normocephalic Mouth exam: PRESENT: moist Respiratory exam: PRESENT: clear to auscultation dianne Cardiovascular exam: PRESENT: RRR, +S1, +S2. ABSENT: diastolic murmur, rubs, systolic murmur Vascular exam: ABSENT: pallor GI/Abdominal exam: PRESENT: normal bowel sounds, soft. ABSENT: distended, guarding, mass, organomegaly, rebound, tenderness Extremities exam: ABSENT: pedal edema Neurological exam: PRESENT: alert, awake, oriented to person, oriented to place, oriented to time, oriented to situation, CN II-XII grossly intact. ABSENT: motor sensory deficit Psychiatric exam: PRESENT: appropriate affect, normal mood. ABSENT: homicidal ideation, suicidal ideation Skin exam: PRESENT: dry, warm, other - healing left foot laceration and abrasion injury prior to admission.. ABSENT: cyanosis, rash Results Laboratory Results: WBC 8.9 10^3/uL (4.0-10.5) 10/12/19 06:52 RBC 3.81 10^6/uL (4.35-5.55) L 10/12/19 06:52 Hgb 12.0 g/dL (13.5-17.0) L D 10/12/19 06:52 Hct 36.2 % (37.9-51.0) L 10/12/19 06:52 MCV 95 fl (80-97) 10/12/19 06:52 MCH 31.5 pg (27.0-33.4) 10/12/19 06:52 MCHC 33.1 g/dL (32.0-36.0) 10/12/19 06:52 RDW 14.0 % (11.5-14.0) 10/12/19 06:52 Plt Count 289 10^3/uL (150-450) 10/12/19 06:52 Lymph % (Auto) 21.7 % (13-45) 10/12/19 06:52 [place] % (Auto) 9.6 % (3-13) 10/12/19 06:52 Eos % (Auto) 1.5 % (0-6) 10/12/19 06:52 Baso % (Auto) 0.8 % (0-2) 10/12/19 06:52 Absolute Neuts (auto) 5.9 10^3/uL (1.7-8.2) 10/12/19 06:52 Absolute Lymphs (auto) 1.9 10^3/uL (0.5-4.7) 10/12/19 06:52 Absolute Monos (auto) 0.8 10^3/uL (0.1-1.4) 10/12/19 06:52 Absolute Eos (auto) 0.1 10^3/uL (0.0-0.6) 10/12/19 06:52 Absolute Basos (auto) 0.1 10^3/uL (0.0-0.2) 10/12/19 06:52 Seg Neutrophils % 66.4 % (42-78) 10/12/19 06:52 PT 12.9 SEC (11.4-15.4) 10/10/19 16:43 INR 0.95 10/10/19 16:43 VBG pH 7.22 (7.30-7.42) L 10/10/19 16:43 VBG pCO2 51.9 mmHg (35-63) 10/10/19 16:43 VBG HCO3 20.7 mmol/L (20-32) 10/10/19 16:43 VBG Base Excess -7.4 mmol/L 10/10/19 16:43 Sodium 137.8 mmol/L (137-145) 10/12/19 06:52 Potassium 4.0 mmol/L (3.6-5.0) 10/12/19 06:52 Chloride 111 mmol/L (98-107) H 10/12/19 06:52 Carbon Dioxide 23 mmol/L (22-30) 10/12/19 06:52 Anion Gap 4 (5-19) L 10/12/19 06:52 BUN 12 mg/dL (7-20) 10/12/19 06:52 Creatinine 0.79 mg/dL (0.52-1.25) 10/12/19 06:52 Est GFR ( Amer) > 60 (>60) 10/12/19 06:52 Est GFR (MDRD) Non-Af > 60 (>60) 10/12/19 06:52 Glucose 71 mg/dL (75-110) L 10/12/19 06:52 POC Glucose 74 mg/dL (70-110) 10/15/19 06:30 Hemoglobin A1c % 9.2 % (4.7-6.0) H 10/12/19 06:52 Lactic Acid 1.7 mmol/L (0.7-2.1) 10/10/19 23:32 Calcium 8.6 mg/dL (8.4-10.2) 10/12/19 06:52 Total Bilirubin 0.5 mg/dL (0.2-1.3) 10/12/19 06:52 Direct Bilirubin 0.0 mg/dL (0.0-0.4) 10/12/19 06:52 Neonat Total Bilirubin Not Reportable 10/12/19 06:52 Neonat Direct Bilirubin Not Reportable 10/12/19 06:52 Neonat Indirect Bili Not Reportable 10/12/19 06:52 AST 19 U/L (17-59) 10/12/19 06:52 ALT 19 U/L (<50) 10/12/19 06:52 Alkaline Phosphatase 78 U/L (38-126) 10/12/19 06:52 Creatine Kinase 83 U/L (55-170) 10/10/19 16:43 Total Protein 6.1 g/dL (6.3-8.2) L 10/12/19 06:52 Albumin 3.1 g/dL (3.5-5.0) L 10/12/19 06:52 Urine Color YELLOW 10/10/19 18:48 Urine Appearance CLEAR 10/10/19 18:48 Urine pH 5.0 (5.0-9.0) 10/10/19 18:48 Ur Specific [place] 1.022 10/10/19 18:48 Urine Protein NEGATIVE mg/dL (NEGATIVE) 10/10/19 18:48 Urine Glucose (UA) >=500 mg/dL (NEGATIVE) H 10/10/19 18:48 Urine Ketones 80 mg/dL (NEGATIVE) H 10/10/19 18:48 Urine Blood NEGATIVE (NEGATIVE) 10/10/19 18:48 Urine Nitrite NEGATIVE (NEGATIVE) 10/10/19 18:48 Urine Bilirubin NEGATIVE (NEGATIVE) 10/10/19 18:48 Urine Urobilinogen NEGATIVE mg/dL (<2.0) 10/10/19 18:48 Ur Leukocyte Esterase NEGATIVE (NEGATIVE) 10/10/19 18:48 Urine WBC (Auto) 0 /HPF 10/10/19 18:48 Squamous Epi Cells Auto <1 /HPF 10/10/19 18:48 Urine Mucus (Auto) RARE /LPF 10/10/19 18:48 Urine Ascorbic Acid NEGATIVE (NEGATIVE) 10/10/19 18:48 Impressions: Chest X-Ray 10/11/19 00:00 IMPRESSION: No evidence of acute cardiopulmonary disease. Plan Health Concerns: Compliance with medication and dietary restrictions as well as care for his in sulin pump. Plan of Treatment: Continue on his preadmission insulin pump regimen upon discharge. Goals: Reduce readmission risk level and maintain adequate glycemic control on outpatient management. Time Spent: Less than 30 Minutes Stroke Is this a Stroke Patient?: No Acute Heart Failure - Is this a Heart Failure Patient?: No
== END 2019-10-15 09:49 | disposition home or self-care (01) | DRG 639 ==
LOC: ER 15:36 → EH 18:21 → 5 21:52
PROVIDERS: ADMIT Internal Medicine Geriatric Medicine; ATTEND Internal Medicine Geriatric Medicine
DX: E11.10 Type 2 diabetes mellitus with ketoacidosis without coma (principal); F32.9 Major depressive disorder, single episode, unspecified; Z96.41 Presence of insulin pump (external) (internal); I10 Essential (primary) hypertension; E78.5 Hyperlipidemia, unspecified; G47.00 Insomnia, unspecified; Z79.4 Long term (current) use of insulin; Z88.7 Allergy status to serum and vaccine; Z90.49 Acquired absence of other specified parts of digestive tract; Z79.82 Long term (current) use of aspirin; S91.312A Laceration without foreign body, left foot, initial encounter; X58.XXXA Exposure to other specified factors, initial encounter; Y92.009 Unspecified place in unspecified non-institutional (private) residence as the place of occurrence of the external cause
CPT/HCPCS: 36415; 71046; 80053; 81001; 82550; 82803; 82962; 83036; 83605; 85025; 85610; 87040; 93005; 93010; 96360; 99285; J1650; J1815; J2270; J2405; J3490; J7030

== ENCOUNTER 2020-02-18 14:18 | Emergency (ER) | payer BC, MEDICARE, MEDICAID ==
[2020-02-18] MEDS ORDERED: DEXTROSE 40% GEL 15 GM TUBE ONE (14:54)
--- NOTE | 2020-02-18 15:06 | ER Document Report ---
ED Medical Screen (RME) - General Chief Complaint: Flu Symptoms Stated Complaint: SORE THROAT, COUGH, LOW BLOOD SUGAR Time Seen by Provider: 02/18/20 14:50 Primary Care Provider: BRYSON SANCHEZ MD [Primary Care Provider] - Follow up as needed TRAVEL OUTSIDE OF THE [place] IN LAST 30 DAYS: No - HPI Notes: 02/18/20 14:58 44 year old male who is insulin dependent type 1 diabetic presents today with complaints of fatigue, sore throat, weakness, somnolence that has become progressively worse over the last week. Patient states he does have an insulin pump he checked his blood sugar prior to come to the emergency room and it was 41. With concern, we grab dextrose 15 as well as getting a Accu-Chek in triage we rechecked his blood sugar, it was 160s. Glucose was held. patient is very somnolent in triage. Orientated to person place and time. Patient states he has been like this for the last week. Reports that he has had nausea and diarrhea, denies any melena. denies any chest pain, shortness of breath, nausea, vomiting. Denies any fevers or chills 02/18/20 15:06 I have greeted and performed a rapid initial assessment of this patient. A comprehensive ED assessment and evaluation of the patient, analysis of test results and completion of the medical decision making process will be conducted by additional ED providers. PHYSICAL EXAMINATION: GENERAL: Chronically ill malnourished and in no acute distress. HEAD: Atraumatic, normocephalic. EYES: Pupils equal round extraocular movements intact, conjunctiva are normal. Pupils 3mm bilaterally NECK: Normal range of motion CV: s1, s2 regular LUNGS: No respiratory distress Musculoskeletal: Normal range of motion NEUROLOGICAL: Slow to respond, in wheel chair SKIN: Warm, Dry, normal turgor, no rashes or lesions noted. The patient was evaluated during a global COVID-19 pandemic and that diagnosis was suspected/considered upon their initial presentation. Their evaluation, treatment and testing was consistent with current guidelines for patients who present with complaints or symptoms and may be related to COVID-19. - Related Data Allergies/Adverse Reactions: Influenza A (H1N1)Vaccine 2008 * [Influenza A (H1N1)Vaccine 2008] Allergy (Verified 02/18/20 14:29) Home Medications: insulin pump, HTN medications, GERD medication Past Medical History - Past Medical History Cardiac Medical History: Reports: Hx Hypercholesterolemia, Hx Hypertension Neurological Medical History: Denies: Hx Cerebrovascular Accident Endocrine Medical History: Reports: Hx Diabetes Mellitus Type 1, Hx Diabetes Mellitus Type 2 Renal/ Medical History: Denies: Hx Peritoneal Dialysis Psychiatric Medical History: Reports: Hx Depression Past Surgical History: Reports: Hx Appendectomy, Hx Orthopedic Surgery - left arm, Hx Tonsillectomy - Immunizations Hx Diphtheria, Pertussis, Tetanus Vaccination: Yes Physical Exam - Vital signs Vitals: Temp Pulse Resp BP Pulse Ox 97.5 F 69 20 127/69 H 100 02/18/20 14:33 02/18/20 14:33 02/18/20 14:33 02/18/20 14:33 02/18/20 14:33 Course - Vital Signs Vital signs: Temp Pulse Resp BP Pulse Ox 97.5 F 69 20 127/69 H 100 02/18/20 14:33 02/18/20 14:33 02/18/20 14:33 02/18/20 14:33 02/18/20 14:33 - Laboratory Results Laboratory Results Interpreted: 02/18/20 14:54 POC Glucose 167 H Doctor's Discharge - Discharge Referrals: BRYSON SANCHEZ MD [Primary Care Provider] - Follow up as needed
[2020-02-18 15:33] LABS: ABSOLUTE BASOPHILS # (AUTO) 0.1 10^3/uL (0.0-0.2); ABSOLUTE EOSINOPHILS # (AUTO) 0.1 10^3/uL (0.0-0.6); ABSOLUTE LYMPHOCYTES (AUTO) 2.3 10^3/uL (0.5-4.7); ABSOLUTE MONOCYTES (AUTO) 0.5 10^3/uL (0.1-1.4); HEMOGLOBIN 13.2 g/dL (13.5-17.0); MONOCYTES % (AUTO) 7.2 % (3-13); TOTAL CELLS COUNTED % (AUTO) 100 %
[2020-02-18 15:38] LABS: ABSOLUTE NEUT (AUTO) 3.9 10^3/uL (1.7-8.2); EOSINOPHILS % (AUTO) 1.9 % (0-6); HEMATOCRIT 39.3 % (37.9-51.0); LYMPHOCYTES % (AUTO) 32.7 % (13-45); MEAN CORPUSCULAR HEMOGLOBIN 31.6 pg (27.0-33.4); MEAN CORPUSCULAR HGB CONC 33.6 g/dL (32.0-36.0); MEAN CORPUSCULAR VOLUME 94 fl (80-97); PLATELET COUNT 253 10^3/uL (150-450); RED BLOOD COUNT 4.18 10^6/uL (4.35-5.55); RED CELL DISTRIBUTION WIDTH 14.2 % (11.5-14.0); SEGMENTED NEUTROPHILS % (AUTO) 57.2 % (42-78); WHITE BLOOD COUNT 6.9 10^3/uL (4.0-10.5)
[2020-02-18 15:56] LABS: ALKALINE PHOSPHATASE 98 U/L (38-126); ASPARTATE AMINO TRANSFERASE 27 U/L (17-59); BILIRUBIN,TOTAL 0.7 mg/dL (0.2-1.3); BLOOD UREA NITROGEN 18 mg/dL (7-20); CALCIUM 9.2 mg/dL (8.4-10.2); CHLORIDE 98 mmol/L (98-107); GLUCOSE 191 mg/dL (75-110); POTASSIUM 4.6 mmol/L (3.6-5.0); TOTAL PROTEIN 7.4 g/dL (6.3-8.2)
[2020-02-18 16:01] LABS: CARBON DIOXIDE 32 mmol/L (22-30)
[2020-02-18 16:02] LABS: ANION GAP 3 (5-19)
--- NOTE | 2020-02-18 17:58 | ER Document Report ---
Entered by SAM JEFFRIES SCRIBE 02/18/20 1744 Acting as scribe for:INNA CALZADA, DO ED General - General Chief Complaint: Flu Symptoms Stated Complaint: SORE THROAT, COUGH, LOW BLOOD SUGAR Time Seen by Provider: 02/18/20 14:50 Primary Care Provider: BRYSON SANCHEZ MD [Primary Care Provider] - Follow up as needed Mode of Arrival: Ambulatory Information source: Patient Notes: This 44-year-old male patient presents to the emergency department today with complaints of a one week history of nosebleeds, generalized body aches, sore th roat, generalized fatigue, cough, nasal congestion, diarrhea, and nausea. He denies any vomiting or known COVID-19 exposure. TRAVEL OUTSIDE OF THE [place] IN LAST 30 DAYS: No - Related Data Allergies/Adverse Reactions: Influenza A (H1N1)Vaccine 2008 * [Influenza A (H1N1)Vaccine 2008] Allergy (Verified 02/18/20 14:29) Home Medications: insulin pump, HTN medications, GERD medication Past Medical History - General Information source: Patient - Social History Smoking Status: Never Smoker Cigarette use (# per day): No Frequency of alcohol use: None Drug Abuse: None Lives with: Family Family History: Reviewed & Not Pertinent Patient has homicidal ideation: No - Past Medical History Cardiac Medical History: Reports: Hx Hypercholesterolemia, Hx Hypertension Endocrine Medical History: Reports: Hx Diabetes Mellitus Type 1, Hx Diabetes Mellitus Type 2 Psychiatric Medical History: Reports: Hx Depression Past Surgical History: Reports: Hx Appendectomy, Hx Orthopedic Surgery - left arm, Hx Tonsillectomy - Immunizations Hx Diphtheria, Pertussis, Tetanus Vaccination: Yes Review of Systems - Review of Systems Constitutional: No symptoms reported EENT: See HPI, Nose congestion, Other - nose bleed Cardiovascular: No symptoms reported Respiratory: See HPI, Cough Gastrointestinal: See HPI, Diarrhea, Nausea. denies: Vomiting Genitourinary: No symptoms reported Male Genitourinary: No symptoms reported Musculoskeletal: No symptoms reported Skin: No symptoms reported Hematologic/Lymphatic: No symptoms reported Neurological/Psychological: No symptoms reported -: Yes All other systems reviewed and negative Physical Exam - Vital signs Vitals: Temp Pulse Resp BP Pulse Ox 97.5 F 69 20 127/69 H 100 02/18/20 14:33 02/18/20 14:33 02/18/20 14:33 02/18/20 14:33 02/18/20 14:33 - Notes Notes: Physical Exam: General: Alert, appears well. HEENT: Normocephalic. Atraumatic. PERRL. Extraocular movements intact. Oropharynx clear. Dry mucous membranes. Poor dentition throughout, dental caries. Neck: Supple. Non-tender. Respiratory: No respiratory distress. Clear and equal breath sounds bilaterally. Cardiovascular: Regular rate and rhythm. Abdominal: Normal Inspection. Non-tender. No distension. Normal Bowel Sounds. Back: No gross abnormalities. Extremities: Moves all four extremities. Upper extremities: Normal inspection. Normal ROM. Lower extremities: Normal inspection. No edema. Normal ROM. Neurological: Normal cognition. AAOx4. Normal speech. Psychological: Normal affect. Normal Mood. Skin: Warm. Dry. Normal color. Course - Re-evaluation Re-evalutation: 02/18/20 19:48 MDM 44 year old with viral syndrome likely. Looks like he feels poorly but nontoxic and labs are reassuring. Discussed follow up and return here precautions with him and and they expressed understanding. - Vital Signs Vital signs: Temp Pulse Resp BP Pulse Ox 97.9 F 64 16 140/75 H 99 02/18/20 20:02 02/18/20 20:02 02/18/20 20:02 02/18/20 20:02 02/18/20 20:02 - Laboratory Results Result Diagrams: 02/18/20 15:18 02/18/20 15:18 Laboratory Results Interpreted: 02/18/20 02/18/20 02/18/20 14:54 15:18 15:18 RBC 4.18 L Hgb 13.2 L RDW 14.2 H Sodium 133.1 L Carbon Dioxide 32 H Anion Gap 3 L Glucose 191 H POC Glucose 167 H Critical Laboratory Results Reviewed: No Critical Results - Radiology Results Critical Radiology Results Reviewed: No Critical Results Discharge - Discharge Clinical Impression: Viral syndrome, Hyperglycemia Condition: Stable Disposition: HOME, SELF-CARE Instructions: Acetaminophen, Clear Liquid Diet ([facility]) Additional Instructions: Clear liquids for 24-48 hours. Take the nausea medicine as needed for nausea. Please return here for chest pain, shortness of breath elevated blood sugar or persistent vomiting. Your medicine was sent to [facility] pharmacy. Prescriptions: Ondansetron [Zofran Odt 4 mg Tablet] 1 - 2 tab PO Q4H PRN #15 tab.rapdis PRN Reason: For Nausea/Vomiting Referrals: BRYSON SANCHEZ MD [Primary Care Provider] - Follow up as needed I personally performed the services described in the documentation, reviewed and edited the documentation which was dictated to the scribe in my presence, and it accurately records my words and actions.
[2020-02-18 18:03] LABS: URINE AMPHETAMINES SCREEN NEGATIVE; URINE BARBITURATES SCREEN NEGATIVE; URINE BENZODIAZEPINES SCREEN NEGATIVE; URINE COCAINE SCREEN NEGATIVE; URINE MARIJUANA (THC) SCREEN NEGATIVE; URINE METHADONE SCREEN NEGATIVE; URINE PHENCYCLIDINE SCREEN NEGATIVE
[2020-02-18] MEDS ORDERED: RINGERS SOLUTION,LACTATED 1,000 ML IV PRN (18:09)
[2020-02-18] MEDS ORDERED: ONDANSETRON ODT 4 MG TAB (6 TAB/ER DISP) PO PRN (19:48)
[2020-02-18 20:11] VITALS: BP 140/75
== END 2020-02-18 20:21 | disposition home or self-care (01) ==
LOC: ER 14:18
DX: B34.9 Viral infection, unspecified (principal); E11.65 Type 2 diabetes mellitus with hyperglycemia; J02.9 Acute pharyngitis, unspecified; R04.0 Epistaxis; R05 Cough; M79.10 Myalgia, unspecified site; Z79.4 Long term (current) use of insulin; Z96.41 Presence of insulin pump (external) (internal); Z20.828 Contact with and (suspected) exposure to other viral communicable diseases
CPT/HCPCS: 99284; 96360; 36415; 87070; 87880; 82962; 85025; 0241U ×4; 86308; 80053; 80307; J7120; C9803